=== PATIENT | female | born 1955 | race Caucasian/White ===

== ENCOUNTER 2018-03-04 13:30 | Emergency (ER) | payer OTHER, SELFPAY ==
[2018-03-04 13:31] VITALS: BP 125/70; PULSE 65; RESP 16; TEMP 36.1; O2SAT 97; BMI 30.1
--- NOTE | 2018-03-04 14:07 | ED.VISSUMM ---
- ER Visit Summary Date of Service: 03/04/18 Chief Complaint: Right back and leg pain. History of Present Illness: The patient is a 62 F recently drove from [place] back to [place] is about 15 hours. States since that time she has had right lower back pain at times it radiates into her hamstring. Denies any weakness. No numbness. She had a minor fall during the trip but said that she had no pain at that time is only after she got home after taking the long ride. No prior hip or back surgery. Physical Examination: Well-appearing older female. Vital signs are stable and afebrile. HEENT exam unremarkable neck nontender. Lungs clear to auscultation bilaterally. Heart regular rate and rhythm no murmur. Abdomen soft nontender Ted no giving or masses. Extremities moves all 4. Neurovascularly intact. No cauda equina no saddle anesthesia. Dorsi plantar flexion intact. She does have a positive straight leg raise on the right at about 15-30?. Left leg is unremarkable. Back exam spine is completely nontender there is no redness or warmth. There is no discoloration or signs of trauma she has exquisite tenderness over her right SI joint consistent with acute sciatica. Test Results: None Emergency Department Course and Treatment: Treated for acute sciatica. Will be given prednisone here and [place]. Treatment Plan: Prednisone 40 mg a day for total 7 days. [place] for pain 20 no refill. Follow-up with primary care physician. Disposition: Discharge Impression: Acute right sciatica This note was generated with [employer] dictation software. It may contain incorrect words, spelling, and punctuation that were not noted in review of the chart prior to signing ED Disposition - Plan for ED Patient: Chief Complaint: Lower Extremity Injury
--- NOTE | 2018-03-04 14:11 | ED.DCSUM_ITS ---
- ER Visit Summary Date of Service: 03/04/18 Chief Complaint: Right back and leg pain. History of Present Illness: The patient is a 62 F recently drove from [place] back to [place] is about 15 hours. States since that time she has had right lower back pain at times it radiates into her hamstring. Denies any weakness. No numbness. She had a minor fall during the trip but said that she had no pain at that time is only after she got home after taking the long ride. No prior hip or back surgery. Physical Examination: Well-appearing older female. Vital signs are stable and afebrile. HEENT exam unremarkable neck nontender. Lungs clear to auscultation bilaterally. Heart regular rate and rhythm no murmur. Abdomen soft nontender Ted no giving or masses. Extremities moves all 4. Neurovascularly intact. No cauda equina no saddle anesthesia. Dorsi plantar flexion intact. She does have a positive straight leg raise on the right at about 15-30?. Left leg is unremarkable. Back exam spine is completely nontender there is no redness or warmth. There is no discoloration or signs of trauma she has exquisite tenderness over her right SI joint consistent with acute sciatica. Test Results: None Emergency Department Course and Treatment: Treated for acute sciatica. Will be given prednisone here and [place]. Treatment Plan: Prednisone 40 mg a day for total 7 days. [place] for pain 20 no refill. Follow-up with primary care physician. Disposition: Discharge Impression: Acute right sciatica This note was generated with [employer] dictation software. It may contain incorrect words, spelling, and punctuation that were not noted in review of the chart prior to signing ED Disposition - Plan for ED Patient: Chief Complaint: Lower Extremity Injury
--- NOTE | 2018-03-04 14:14 | ED.DEP ---
ED Disposition - Plan for ED Patient: Disposition: Home or Assisted Living Chief Complaint: Lower Extremity Injury Instructions: ED Sciatica Prescriptions: Hydrocodone Bitart/Apap 5-325 [[place] 5MG-325MG] 1 - 2 tab PO Q4H PRN PRN #20 tab PRN Reason: Pain Prednisone [Deltasone] 40 mg PO DAILY 7 Days tab Additional Instructions: Follow-up with your doctor. Ice to the painful sciatic area. Prednisone 40 g a day for 1 week to decrease inflammation. [place] for pain.
[2018-03-04] MEDS: HYDROcodone Bitartrate/Apap 5/325 Tablet PO (14:23)
--- NOTE | 2018-03-04 14:23 | DCINST.ED_ITS ---
ED Disposition - Plan for ED Patient: Disposition: Home or Assisted Living Chief Complaint: Lower Extremity Injury Instructions: ED Sciatica Prescriptions: Hydrocodone Bitart/Apap 5-325 [[place] 5MG-325MG] 1 - 2 tab PO Q4H PRN PRN #20 tab PRN Reason: Pain Prednisone [Deltasone] 40 mg PO DAILY 7 Days tab Additional Instructions: Follow-up with your doctor. Ice to the painful sciatic area. Prednisone 40 g a day for 1 week to decrease inflammation. [place] for pain.
[2018-03-04] MEDS: predniSONE 20 MG Tablet 40 MG PO (14:24)
== END 2018-03-04 14:36 | disposition home or self-care (01) ==
PROVIDERS: Emergency Provider Emergency Medicine; Family Provider Family Medicine; PCP Family Medicine
DX: M54.41 Lumbago with sciatica, right side (principal); K21.9 Gastro-esophageal reflux disease without esophagitis; E11.9 Type 2 diabetes mellitus without complications; I10 Essential (primary) hypertension; Z86.73 Personal history of transient ischemic attack (TIA), and cerebral infarction without residual deficits; Z79.84 Long term (current) use of oral hypoglycemic drugs; Z79.899 Other long term (current) drug therapy
CPT/HCPCS: 99283

== ENCOUNTER → 2018-04-23 15:47 | Outpatient (CLI) | payer OTHER, SELFPAY ==
--- NOTE | 2018-04-23 15:53 | RAD_ITS ---
STUDY: X-RAY - CERVICAL SPINE REASON FOR EXAM: Female, 63 years old. Pain. TECHNIQUE: 5 view(s) of the cervical spine were obtained. COMPARISON: None FINDINGS: Normal anterior atlantoaxial articulation. Normal odontoid process. There is straightening of the normal cervical lordosis. There is multi-level endplate spondylosis. There is multi-level degenerative disc disease with multilevel disc space narrowing. There is multi-level osseous foraminal stenosis. The soft tissue structures are unremarkable. There is no demonstrated fracture of the cervical spine. RAD/Cerv Spine 4 or 5 Views IMPRESSION: Degenerative change. No fracture. Electronically Signed: Angel Leon MD at 23:35 EDT , Service support ,
== END ==
PROVIDERS: Family Provider Family Medicine; PCP Family Medicine; Visit Provider Nurse Practitioner Family
DX: M54.2 Cervicalgia (principal)
CPT/HCPCS: 72050

== ENCOUNTER 2018-04-28 18:00 | Observation (INO) | payer OTHER, SELFPAY ==
[2018-04-28] VITALS (10 sets, daily range): BP systolic 119–135; BP diastolic 59–84; PULSE 69–78; RESP 16–20; TEMP 36.3–37; O2SAT 95–96; BMI 30.8; BMI 30.9
--- NOTE | 2018-04-28 18:40 | CT_ITS ---
STUDY: CT BRAIN WITHOUT CONTRAST REASON FOR EXAM: Female, 63 years old. Dizziness RADIATION DOSAGE (If Supplied By Facility): CTDIvol = ( 44.99 ) mGy, DLP = ( 779.24 ) mGycm TECHNIQUE: Transaxial CT imaging of the brain was performed without administration of intravenous contrast material. Individualized dose optimization techniques were used for this CT. COMPARISON: June 30, 2014 FINDINGS: The soft tissues are unremarkable. The osseous structures are unremarkable. Normal size ventricles and extra-axial spaces for the patient's age. There are scattered areas of decreased attenuation within the white matter tracts of the supratentorial brain, likely microvascular changes. There are small punctate calcifications of the basal ganglia which are seen in the aging brain as a normal variant. There is a stable old lacunar infarct in the left thalamus. No abnormalities are seen in the brainstem. The cerebellum is unremarkable. There is a stable arachnoid cyst in the right middle cranial fossa. There is no intracranial hemorrhage. There are no findings of acute ischemia. The visualized sinuses are unremarkable. CT/Brain/Head without Contrast IMPRESSION: No acute intracranial abnormalities. There are stable chronic findings. Electronically Signed: Tanya Rivas MD at 19:18 EDT Tel Direct: [phone], Service support ,
--- NOTE | 2018-04-28 18:40 | EKG12_ITS ---
Test Reason : Blood Pressure : / mmHG Vent. Rate : 073 BPM Atrial Rate : 073 BPM P-R Int : 126 ms QRS Dur : 072 ms QT Int : 364 ms P-R-T Axes : -28 -18 011 degrees QTc Int : 401 ms Normal sinus rhythm Low voltage QRS Borderline ECG Confirmed by DURAN TIDWELL, KELSY ([id number]), technical writer and editor FRANCE NAJERA ([id number]) on 04/30/2018 8:59:41 AM Referred By: Radha Treviño Confirmed By:KELSY GARZON MD
--- NOTE | 2018-04-28 18:48 | ED.VISSUMM ---
- ER Visit Summary Date of Service: 04/28/18 Chief Complaint: Trouble with speech, walking and rhythmic activity right upper extremity History of Present Illness: The patient is a 63 F with history of type 2 diabetes, hypertension and CVA ?2 who was brought to the emergency department by her daughters because they noted she was having difficulty walking. Initially they thought it was because of her flip-flops. He also noted facial droop trouble with fluency and slurred speech. Both daughters describe rhythmic activity of the right upper extremity. There is no history of seizures. Patient does have history of arachnoid cyst. She does not give symptoms of low blood sugar. She denies headache. She complains of some visual change. Denied double vision. She denies ringing in her ears. I trouble speech or swallowing. She denied chest pain, palpitations, dyspnea on exertion. She denies dyspnea, cough or congestion. She denies any abdominal/GI, or musculoskeletal symptoms. She is on no anticoagulant and denies problems with bleeding disorder or bruising easily. Physical Examination: Patient's NIH is 0. Onset was 1745. Daughters stopped Mrs. Decker when I was asking questions because they stated she was not describing events as they occurred. She appears slightly anxious. Head is atraumatic normocephalic. Pupils are equal round reactive. Extraocular muscles are intact. TMs are pearly white with landmarks noted. Nares patent with no drainage. Posterior pharynx without erythema or exudate. Uvula is midline. There is no dysphonia or dysphasia. Trachea is midline. There is no stridor with auscultation of the neck. Heart is regular without murmur, gallop or rub. S1 and S2 are normal. Lungs are clear to auscultation with good movement of air bilaterally. Abdomen soft nontender. Patient is alert and oriented ?3. Motor is 5 over 5. Sensory is intact. DTRs are symmetric with no clonus or Babinski sign. Cranial 2 through 12 are intact. Cerebellar testing is normal. Test Results: CBC, BMP and coags are unremarkable. EKG revealed a sinus rhythm rate of 73 with low voltage. [place] and intervals are normal. CT of the head was interpreted by radiologist no acute findings. Emergency Department Course and Treatment: Stroke order set was initiated. PTT was assessed and she is diabetic. Concern patient had a TIA since her symptoms resolved. With the rhythmic activity described by both daughters patient may have had a seizure. Treatment Plan: The hospitalist has been paged for admission and further workup Disposition: PCU Impression: Dysarthria, difficulty walking and expressive aphasia Rhythmic movement right upper extremity evaluate for seizure History of CVA History of type 2 diabetes History of hypertension History of arachnoid cyst This note was generated with [employer] dictation software. It may contain incorrect words, spelling, and punctuation that were not noted in review of the chart prior to signing ED Disposition - Plan for ED Patient: Chief Complaint: Dizziness Referrals: Manda Howe MD [Primary Care Provider] -
[2018-04-28 18:53] LABS: Absolute Neutrophil Count 4.8 X10^3/uL (2.0-7.7); Basophil# 0.08 X10^3/uL; Basophil% 0.9 % (0-1); Eosinophil# 0.45 X10^3/uL; Eosinophils% 5.1 % (0-5); Hematocrit 39.3 % (37-47); Hemoglobin 12.8 g/dl (12.0-15.0); Lymphocyte % 30.8 % (19-41); Mean Corp Hgb Conc 32.6 g/gl (32-36); Mean Corpuscular Volume 88.9 fL (81-99); Mean Platelet Vol. 10.8 fl (6.2-12.0); Monocyte# 0.71 X10^3/uL; Monocyte% 8.1 % (0-10); Neutrophil # 4.82 X10^3/uL (2.7-7.7); Neutrophil % 54.9 % (47-70); Platelet Count 267 K/mm3 (150-450); RBC Distribution Width CV 13.7 % (11.6-14.6); RBC Distribution Width SD 43.8 fl (35.1-43.9); Red Blood Count 4.42 M/mm3 (4.2-5.4); White Blood Count 8.8 K/mm3 (4.4-11.0)
[2018-04-28 18:55] LABS: POSITIVE COUNT NO; POSITIVE DIFFERENTIAL NO; POSITIVE MORPHOLOGY NO
[2018-04-28 19:01] LABS: Bedside Glucose 108 mg/dL (70-110)
[2018-04-28 19:02] LABS: Prothrombin Time (Protime)PT. 12.7 SECONDS (11.7-14.9)
[2018-04-28 19:03] LABS: Partial Thromboplast Time 28.7 Seconds (24.1-36.2)
[2018-04-28 19:11] LABS: Anion Gap 6 (5-15); BUN 12 mg/dL (7-18); BUN/Creat Ratio 12.2 RATIO (10-20); Calcium,Total 9.2 mg/dL (8.5-10.1); Chloride 103 mmol/L (98-107); Creatinine, Serum 0.98 mg/dL (0.55-1.02); EST Glomerular Filtration Rate 61 mL/min (>60); Est Glom Filt Rate - Afr Amer 73 mL/min (>60); Estimated Creatinine Clearance 48.61 ml/min; Glucose 111 mg/dL (74-106); Potassium 4.1 mmol/L (3.5-5.1); Sodium Level 139 mmol/L (136-145)
--- NOTE | 2018-04-28 20:59 | PCM.HP.STD ---
Problem List (1) TIA (transient ischemic attack) Status: Acute (2) Obesity (BMI 30.0-34.9) Status: Chronic (3) Arachnoid cyst Status: Chronic (4) Diabetes mellitus, type II Status: Chronic (5) CVA (cerebral infarction) Status: Chronic (6) Barretts esophagus Status: Chronic Qualifiers: (7) Hypertension Status: Chronic Qualifiers: (8) Hiatal hernia Status: Chronic History of Present Illness Date of Admission: 04/28/18 Chief Complaint: Multiple TIA-like symptoms today The patient is a 63 year old F with history of hypertension, type 2 diabetes mellitus CVA ?2, once at the age of 27 when she had dysarthria and was admitted and diagnosed with stroke and second time she does not remember but no residual deficit came to ED with multiple symptoms at 5:30 PM today while she was walking. Her daughters for walking along with her and noticed expressive aphasia, slurred speech, right upper extremity involuntary movements, drifting to her right side with disequilibrium and loss of balance, along with dizziness and vertigo. She also complained of left visual field blurry/foggy vision. As per the daughter, they noticed whole facial droop but I do not notice any facial droop. She has history of arachnoid cyst but no seizure. Further she said she has sometimes arrhythmia but does not know what it is an EKG shows normal sinus rhythm and she is not on blood thinners. PCP Dr. Howe. There is no mention about A. fib or arrhythmia in the problem list. EKG shows normal sinus rhythm at 73 bpm. Initial workup in the ER is unremarkable. CT head no acute finding. She is further admitted for workup of TIA/stroke [] Past Medical History Past Medical History (Chronic Problems): Chronic Problems Obesity (BMI 30.0-34.9) (Chronic) Arachnoid cyst (Chronic) Diabetes mellitus, type II (Chronic) CVA (cerebral infarction) (Chronic) Barretts esophagus (Chronic) Hypertension (Chronic) Hiatal hernia (Chronic) Allergies lisinopril Allergy (Verified 03/04/18 13:33) Other Home Medications: Ambulatory Orders Medication Instructions Recorded Atorvastatin Calcium [Lipitor] 40 mg PO QHS 06/30/14 Duloxetine Hcl [Cymbalta] 60 mg PO DAILY 06/30/14 Metformin(XR) [Glucophage Xr] 500 mg PO BID 06/30/14 Multivit-Min/FA/Lycopene/Lut 1 each PO DAILY 06/30/14 [Centrum Silver Tablet] Valsartan/Hydrochlorothiazide 1 tablet PO DAILY 06/30/14 [Diovan Hct 80-12.5 MG Tablet] traMADol [Ultram] 50 mg PO Q6H PRN PRN 06/30/14 Pantoprazole Sodium [Protonix] 40 mg PO DAILY 04/28/18 Surgical History: - - Silicon bilateral breast augmentation, hiatal hernia repair, appendectomy. Psychiatric History: No pertinent psych hx TECHNOLOGY SERVICES MANAGER History: No pertinent TECHNOLOGY SERVICES MANAGER history Smoking Status: Never smoker - *Family History Maternal History Items: Heart Disease Paternal History Items: Cancer, COPD, Diabetes, Hypertension Review of Systems Constitutional: Denies: Chills, Fever, Weight Change HEENT: Denies: Head Aches, Sinus Congestion, Sinus Drainage Cardiovascular: Denies: Chest Pain, Palpitations Respiratory: Denies: Cough, Shortness of breath at rest, Sputum production Gastrointestinal: Denies: Abdominal Pain, Nausea, Vomiting Genitourinary: Denies: Dysuria Musculoskeletal: Denies: Joint Pain, Joint Tenderness Skin: Denies: Rash, Wounds Neurological: Reports: Balance problems, Blurred vision, Change in Speech, Slurred speech, Confusion, Incoordination, Tremor. Denies: Double vision, Focal weakness, Numbness, Tingling, Seizures Psychiatric: Reports: Anxiety, Depression. Denies: Homicidal Ideations, Suicidal Ideations Hematologic/ Lymphatic: Denies: Easy Bruising, Easy Bleeding VTE Information - Inpt Only VTE Present on Admission: No VTE Mechan Device Prophylaxis: SCD's VTE Pharm Prophylaxis ordered?: Yes Patient Problems: Active and Suspected Problems TIA (transient ischemic attack) (Acute) - Physical Exam General: Alert, Oriented x3, Cooperative HEENT: Atraumatic, PERRLA, EOMI, Normocephalic Neck: Supple, No JVD, Negative Carotid Bruits Lungs: Clear to auscultation, Normal air movement Cardiovascular: Regular rate, Regular Rhythm, Normal S1, Normal S2, No murmurs Abdomen: Bowel Sounds Present, Soft, Non Tender, Non-Distended Extremities: No edema, Capillary Refill Less than 3 Seconds Skin: No rashes, No breakdown Musculoskeletal: No Tenderness to Palpation of Joints or Extremities Neurological: Cranial nerves II-XII grossly intact, Deep Tendon Reflexes 2+/4 and Symmetrical, Neuro grossly intact, Motor Exam 5/5 strength throughout, Sensory exam intact to light touch and pain, - - No cerebellar signs. Vpwuym-[id number] test and ubqw-io-[id number] test are negative. Sensory exam is equal and symmetrical on both side. NIH stroke scale 0 Psych/Mental Status: Normal Affect, Appropriate Vital Signs Temp Pulse Resp BP Pulse Ox 98.6 F 71 18 135/77 H 95 04/28/18 18:01 04/28/18 20:52 04/28/18 20:52 04/28/18 20:52 04/28/18 20:52 Oxygen Delivery Method Room Air Assessment/Plan All Active Problems TIA (transient ischemic attack) (Acute) The patient is a 63 year old F with history of hypertension, type 2 diabetes mellitus CVA ?2, once at the age of 27 when she had dysarthria and was admitted and diagnosed with stroke and second time she does not remember but no residual deficit came to ED with multiple symptoms at 5:30 PM today while she was walking. Her daughters for walking along with her and noticed expressive aphasia, slurred speech, right upper extremity involuntary movements, drifting to her right side with disequilibrium and loss of balance, along with dizziness and vertigo. She also complained of left visual field blurry/foggy vision. As per the daughter, they noticed whole facial droop but I do not notice any facial droop. She has history of arachnoid cyst but no seizure. Further she said she has sometimes arrhythmia but does not know what it is an EKG shows normal sinus rhythm and she is not on blood thinners. PCP Dr. Howe. There is no mention about A. fib or arrhythmia in the problem list. EKG shows normal sinus rhythm at 73 bpm. Initial workup in the ER is unremarkable. CT head no acute finding. She is further admitted for workup of TIA/stroke 1. TIA-like symptoms possible TIA with history of a stroke in the past: Patient is being admitted in PCU. Cardiac monitoring. Serial troponin enzymes. Stroke workup with MRI brain, CTA head and neck, and 2D echo. PT/OT and speech/swallow evaluation. BP and glucose control as per stroke guidelines. Neuro consult. Fasting profile, A1c and ESR. On aspirin and statin. Blood pressure is within stroke guidelines does not require any medication at present. 2. Diabetes mellitus type 2: Blood sugars controlled on BMP glucose is 111. Accu-Chek before meals and at bedtime and cover with NovoLog sliding scale. 3. Hypertension, GERD and CT head finding which was later confirmed by MRIbrain of 4.3 x 2.8 x 3.3 cm. arachnoid cyst in the right middle cranial fossa in June 2014 admission when she was admitted for headache. Home medication reconciliation done. DVT prophylaxis: On bilateral SCDs. Heparin 5000 units subcutaneous twice daily starting from 24 hours after symptom. This note was generated with [employer] dictation software. Every effort was made to ensure accuracy, however computerized wing commander mistakes may persist. Code Visit OBSV E&M: 18498 Initial observation care L3
--- NOTE | 2018-04-28 21:01 | ECHOD_ITS ---
Reason For Study: TIA.CVA Procedure This was a 2D Doppler, Color Flow transthoracic echocardiogram. Exam performed portable in patient room. Left Ventricle Normal size and thickness. The estimated ejection fraction is 65 %. Stage 1 diastolic dysfunction. No regional wall motion abnormalities noted. Right Ventricle Normal size and thickness. Normal systolic function. Atria Normal left atrium. Normal right atrium. Normal atrial septum. Mitral Valve The mitral valve is structurally normal. No prolapse or stenosis seen. Tricuspid Valve Normal tricuspid valve. Mild (1+) tricuspid valve insufficiency. Right ventricular systolic pressure estimated to be 33 mmHg. Aortic Valve Normal aortic valve. Trisinus/trileaflet aortic valve. Pulmonic Valve Normal pulmonic valve. Great Vessels Normal aortic root. Normal arch. Normal inferior vena cava. Inferior vena cava collapse with sniff. Pericardium/Pleural No pericardial effusion. MMode/2D Measurements & Calculations LVIDd: 5.3 cm IVSd: 0.88 cm LVOT diam: 2.0 cm LVIDs: 3.0 cm LVPWd: 0.96 cm LVOT area: 3.0 cm2 RVDd: 2.6 cm FS: 43.5 % Ao root diam: 3.5 cm LAV(MOD-bp): 65.1 ml LA A4 area: 20.4 cm2 LA dimension: 4.3 cm LAV(MOD-bp) Indexed: 35.7 ml/m2 LAV(MOD-sp2): 59.6 ml LAV(MOD-sp4): 65.5 ml RA A4 area: 15.7 cm2 Doppler Measurements & Calculations MV E max edmund: 75.3 cm/sec Lat Peak E' Edmund: 10.4 cm/sec Med Peak E' Edmund: 6.9 cm/sec MV A max edmund: 91.2 cm/sec E/E' lat: 7.2 E/E' med: 10.9 MV E/A: 0.83 Ao V2 max: 205.3 cm/sec LV V1 max: 149.3 cm/sec SV(LVOT): 88.4 ml Ao max P.9 mmHg LV V1 max P.9 mmHg Ao V2 mean: 127.7 cm/sec LV V1 mean P.0 mmHg Ao mean P.5 mmHg LV V1 mean: 92.8 cm/sec Ao V2 VTI: 38.6 cm LV V1 VTI: 29.4 cm HOWIE(I,D): 2.3 cm2 HOWIE(V,D): 2.2 cm2 PA V2 max: 112.8 cm/sec TR max edmund: 264.5 cm/sec TR max P.0 mmHg Interpretation Summary The estimated ejection fraction is 65 %. Stage 1 diastolic dysfunction. Mild (1+) tricuspid valve insufficiency. Right ventricular systolic pressure estimated to be 33 mmHg. Compared to echo report dated 07/05/2008, no appreciable changes noted. Pt reportedly had POSITIVE bubble study at that time. Ordering Physician: David Madsen Referring Physician: Radha Treviño Performed By: Ninfa Eldridge RDCS, RVT
--- NOTE | 2018-04-28 21:01 | CT_ITS ---
STUDY: CTA OF THE BRAIN REASON FOR EXAM: Female, 63 years old. Dizziness RADIATION DOSAGE (If Supplied By Facility): CTDIvol = ( 17.73 ) mGy, DLP = ( 664.92 ) mGycm TECHNIQUE: CT angiography was performed with a multi-detector CT scanner. Data acquisition was obtained from the skull base through the vertex following intravenous administration of 100 ml of Isovue 370. MIP images were reconstructed from the axial data set. Post-processing of the angiographic images was performed, with multiplanar reformation and 3D reconstruction. Individualized dose optimization techniques were used for this CT. COMPARISON: Head CT without contrast from the same day FINDINGS: The petrous carotid arteries are normal in appearance. There is calcified plaque formation of the right cavernous carotid artery, without significant luminal narrowing. There is calcified plaque formation of the left cavernous carotid artery, without significant luminal narrowing. There is hypoplastic development of the right A1 segment of the anterior cerebral arteries with a small but intact artery. Normal left A1 segment of the anterior cerebral artery. Normal intact anterior communicating artery (ACOM). Normal bilateral A2 segments of the anterior cerebral arteries. Normal right M1 and M2 segments of the middle cerebral arteries, with a normal M1 bifurcation. Normal left M1 and M2 segments of the middle cerebral arteries, with a normal M1 bifurcation. There is non-visualization of the right posterior communicating artery (PCOM). There is non-visualization of the left posterior communicating artery (PCOM). Normal bilateral distal vertebral arteries. Normal basilar artery with a normal basilar bifurcation. The visualized bilateral superior cerebellar (SCA) arteries are within normal limits. Normal bilateral P1, P2 and visualized P3 segments of the posterior cerebral arteries. There is no demonstrated aneurysm of the [place]. There is no demonstrated enhancement of the visualized brain. CT/CTA Head W/WO Contrast IMPRESSION: Normal intracranial arteries without a demonstrated aneurysm or hemodynamically significant stenosis. Electronically Signed: Tanya Rivas MD at 22:30 EDT Tel Direct: [phone], Service support ,
--- NOTE | 2018-04-28 21:01 | CT_ITS ---
STUDY: CTA NECK WITH CONTRAST REASON FOR EXAM: Female, 63 years old. Dizziness RADIATION DOSAGE (If Supplied By Facility): CTDIvol = ( 17.73 ) mGy, DLP = ( 664.92 ) mGycm TECHNIQUE: CT angiography with multi-detector data acquisition was performed from the aortic arch to the skull base following intravenous administration of 100 ml of Isovue 370 contrast. MIP images were reconstructed from the axial data set. Post-processing of the angiographic images was performed, with multiplanar reformation and 3D reconstruction. Individualized dose optimization techniques were used for this CT. COMPARISON: None. FINDINGS: AORTIC ARCH: There is a bovine origin of the great vessels arising from the aortic arch with a common origin of the brachiocephalic and left common carotid artery. Normal origin of the left subclavian artery. There are minimal calcifications in the origins of the great vessels without narrowing. RIGHT CAROTID ARTERIES: There are no significant abnormalities in the right common carotid artery. There is a small cleft in the right carotid bulb. Normal origin of the right internal carotid artery without a hemodynamically significant stenosis. There is tortuosity of the cervical portion of the right internal carotid artery. Normal origin of the right external carotid artery (ECA). LEFT CAROTID ARTERIES: There is tortuosity of the left common carotid artery. There is mild atherosclerotic plaque in the left carotid bulb without significant narrowing. Normal origin of the left internal carotid artery without a hemodynamically significant stenosis. There is tortuosity of the cervical portion of the left internal carotid artery. Normal origin of the left external carotid artery (ECA). VERTEBRAL ARTERIES: The vertebral arteries show no significant abnormalities. There is minimal atelectasis in the upper lungs. There are no abnormal masses or enlarged lymph nodes in the upper mediastinum or throughout the neck. The thyroid is normal in appearance. The submandibular glands and parotid glands are symmetric and normal in appearance. The sinuses and mastoid air cells are well aerated. There are moderate degenerative changes in the cervical spine. CT/CTA Neck W/WO Contrast IMPRESSION: There is minimal calcific plaque in the left carotid bulb without narrowing. There is a small cleft in the right carotid bulb without narrowing. The vertebral arteries are normal without significant disease or dissection. Electronically Signed: Tanya Rivas MD at 22:27 EDT Tel Direct: [phone], Service support ,
--- NOTE | 2018-04-28 21:12 | HP.PCM_ITS ---
Problem List (1) TIA (transient ischemic attack) Status: Acute (2) Obesity (BMI 30.0-34.9) Status: Chronic (3) Arachnoid cyst Status: Chronic (4) Diabetes mellitus, type II Status: Chronic (5) CVA (cerebral infarction) Status: Chronic (6) Barretts esophagus Status: Chronic Qualifiers: (7) Hypertension Status: Chronic Qualifiers: (8) Hiatal hernia Status: Chronic History of Present Illness Date of Admission: 04/28/18 Chief Complaint: Multiple TIA-like symptoms today The patient is a 63 year old F with history of hypertension, type 2 diabetes mellitus CVA ?2, once at the age of 27 when she had dysarthria and was admitted and diagnosed with stroke and second time she does not remember but no residual deficit came to ED with multiple symptoms at 5:30 PM today while she was walking. Her daughters for walking along with her and noticed expressive aphasia, slurred speech, right upper extremity involuntary movements, drifting to her right side with disequilibrium and loss of balance, along with dizziness and vertigo. She also complained of left visual field blurry/foggy vision. As per the daughter, they noticed whole facial droop but I do not notice any facial droop. She has history of arachnoid cyst but no seizure. Further she said she has sometimes arrhythmia but does not know what it is an EKG shows normal sinus rhythm and she is not on blood thinners. PCP Dr. Howe. There is no mention about A. fib or arrhythmia in the problem list. EKG shows normal sinus rhythm at 73 bpm. Initial workup in the ER is unremarkable. CT head no acute finding. She is further admitted for workup of TIA/stroke [] Past Medical History Past Medical History (Chronic Problems): Chronic Problems Obesity (BMI 30.0-34.9) (Chronic) Arachnoid cyst (Chronic) Diabetes mellitus, type II (Chronic) CVA (cerebral infarction) (Chronic) Barretts esophagus (Chronic) Hypertension (Chronic) Hiatal hernia (Chronic) Allergies lisinopril Allergy (Verified 03/04/18 13:33) Other Home Medications: Ambulatory Orders Medication Instructions Recorded Atorvastatin Calcium [Lipitor] 40 mg PO QHS 06/30/14 Duloxetine Hcl [Cymbalta] 60 mg PO DAILY 06/30/14 Metformin(XR) [Glucophage Xr] 500 mg PO BID 06/30/14 Multivit-Min/FA/Lycopene/Lut 1 each PO DAILY 06/30/14 [Centrum Silver Tablet] Valsartan/Hydrochlorothiazide 1 tablet PO DAILY 06/30/14 [Diovan Hct 80-12.5 MG Tablet] traMADol [Ultram] 50 mg PO Q6H PRN PRN 06/30/14 Pantoprazole Sodium [Protonix] 40 mg PO DAILY 04/28/18 Surgical History: - - Silicon bilateral breast augmentation, hiatal hernia repair, appendectomy. 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 Smoking Status: Never smoker - *Family History Maternal History Items: Heart Disease Paternal History Items: Cancer, COPD, Diabetes, Hypertension Review of Systems Constitutional: Denies: Chills, Fever, Weight Change HEENT: Denies: Head Aches, Sinus Congestion, Sinus Drainage Cardiovascular: Denies: Chest Pain, Palpitations Respiratory: Denies: Cough, Shortness of breath at rest, Sputum production Gastrointestinal: Denies: Abdominal Pain, Nausea, Vomiting Genitourinary: Denies: Dysuria Musculoskeletal: Denies: Joint Pain, Joint Tenderness Skin: Denies: Rash, Wounds Neurological: Reports: Balance problems, Blurred vision, Change in Speech, Slurred speech, Confusion, Incoordination, Tremor. Denies: Double vision, Focal weakness, Numbness, Tingling, Seizures Psychiatric: Reports: Anxiety, Depression. Denies: Homicidal Ideations, Suicidal Ideations Hematologic/ Lymphatic: Denies: Easy Bruising, Easy Bleeding VTE Information - Inpt Only VTE Present on Admission: No VTE Mechan Device Prophylaxis: SCD's VTE Pharm Prophylaxis ordered?: Yes Patient Problems: Active and Suspected Problems TIA (transient ischemic attack) (Acute) - Physical Exam General: Alert, Oriented x3, Cooperative HEENT: Atraumatic, PERRLA, EOMI, Normocephalic Neck: Supple, No JVD, Negative Carotid Bruits Lungs: Clear to auscultation, Normal air movement Cardiovascular: Regular rate, Regular Rhythm, Normal S1, Normal S2, No murmurs Abdomen: Bowel Sounds Present, Soft, Non Tender, Non-Distended Extremities: No edema, Capillary Refill Less than 3 Seconds Skin: No rashes, No breakdown Musculoskeletal: No Tenderness to Palpation of Joints or Extremities Neurological: Cranial nerves II-XII grossly intact, Deep Tendon Reflexes 2+/4 and Symmetrical, Neuro grossly intact, Motor Exam 5/5 strength throughout, Sensory exam intact to light touch and pain, - - No cerebellar signs. Finger-to -nose test and [id number] test are negative. Sensory exam is equal and symmetrical on both side. NIH stroke scale 0 Psych/Mental Status: Normal Affect, Appropriate Vital Signs Temp Pulse Resp BP Pulse Ox 98.6 F 71 18 135/77 H 95 04/28/18 18:01 04/28/18 20:52 04/28/18 20:52 04/28/18 20:52 04/28/18 20:52 Oxygen Delivery Method Room Air Assessment/Plan All Active Problems TIA (transient ischemic attack) (Acute) The patient is a 63 year old F with history of hypertension, type 2 diabetes mellitus CVA ?2, once at the age of 27 when she had dysarthria and was admitted and diagnosed with stroke and second time she does not remember but no residual deficit came to ED with multiple symptoms at 5:30 PM today while she was walking. Her daughters for walking along with her and noticed expressive aphasia, slurred speech, right upper extremity involuntary movements, drifting to her right side with disequilibrium and loss of balance, along with dizziness and vertigo. She also complained of left visual field blurry/foggy vision. As per the daughter, they noticed whole facial droop but I do not notice any facial droop. She has history of arachnoid cyst but no seizure. Further she said she has sometimes arrhythmia but does not know what it is an EKG shows normal sinus rhythm and she is not on blood thinners. PCP Dr. Howe. There is no mention about A. fib or arrhythmia in the problem list. EKG shows normal sinus rhythm at 73 bpm. Initial workup in the ER is unremarkable. CT head no acute finding. She is further admitted for workup of TIA/stroke 1. TIA-like symptoms possible TIA with history of a stroke in the past: Patient is being admitted in PCU. Cardiac monitoring. Serial troponin enzymes. Stroke workup with MRI brain, CTA head and neck, and 2D echo. PT/OT and speech/swallow evaluation. BP and glucose control as per stroke guidelines. Neuro consult. Fasting profile, A1c and ESR. On aspirin and statin. Blood pressure is within stroke guidelines does not require any medication at present. 2. Diabetes mellitus type 2: Blood sugars controlled on BMP glucose is 111. Accu-Chek before meals and at bedtime and cover with NovoLog sliding scale. 3. Hypertension, GERD and CT head finding which was later confirmed by MRI brain of 4.3 x 2.8 x 3.3 cm. arachnoid cyst in the right middle cranial fossa in June 2014 admission when she was admitted for headache. Home medication reconciliation done. DVT prophylaxis: On bilateral SCDs. Heparin 5000 units subcutaneous twice daily starting from 24 hours after symptom. This note was generated with [employer] dictation software. Every effort was made to ensure accuracy, however computerized antisqueak filler mistakes may persist. Code Visit OBSV E&M: 57438 Initial observation care L3
[2018-04-28 21:43] LABS: Thyroid Stim Hormone (TSH) 1.64 uIU/mL (0.358-3.74)
[2018-04-28] MEDS: Famotidine 20 MG Tablet PO (23:41)
[2018-04-28] MEDS: Atorvastatin Calcium 40 MG Tablet PO (23:42)
[2018-04-28 23:51] LABS: Bedside Glucose 130 mg/dL (70-110)
[2018-04-29] VITALS (9 sets, daily range): BP systolic 94–142; BP diastolic 45–79; PULSE 57–74; RESP 16–20; TEMP 36.4–37.1; O2SAT 93–97; BMI 30.9
[2018-04-29] MEDS: traZODone 100 MG Tablet PO (01:23)
[2018-04-29 06:45] LABS: Cholesterol 216 mg/dL (200); High Density Lipoprotein 56 mg/dL; Triglycerides 96 mg/dL; Very Low Density Lipoprotein 19 mg/dL (5-40)
[2018-04-29 06:55] LABS: Erythrocyte Sedimentation Rate 5 mm/hr (0-30)
[2018-04-29 07:06] LABS: Bedside Glucose 115 mg/dL (70-110)
--- NOTE | 2018-04-29 07:27 | MRI_ITS ---
STUDY: MRI BRAIN WITHOUT CONTRAST REASON FOR EXAM: Female, 63 years old. TIA, blurred vision, dizziness, confusion and expressive aphasia since yesterday. TECHNIQUE: Standardized multiplanar fat and water weighted pulse sequences were obtained. COMPARISON: CT brain and CTA 04/28/2018. MRI brain 06/30/2014. FINDINGS: No restricted diffusion to suspect acute or subacute ischemic infarct. Large benign arachnoid cyst overlying the posterior aspect of the left inferior temporal lobe gyrus is unchanged. This is causing medial displacement of the left inferior temporal lobe gyrus and elevation of the left middle temporal lobe gyrus. Left anterior periventricular white matter and small bilateral subcortical white matter T2 FLAIR hyperintensity foci in the frontal lobes were present previously. Normal bilateral basal ganglia. Old lacunar cystic infarct in the left thalamus is unchanged. Normal right thalamus. There is no extra-axial fluid accumulation. Normal flow voids within the major intracranial circulation suggesting patency by spin echo criteria. Normal sella turcica, pituitary gland, infundibular stalk, optic chiasm and hypothalamus. Normal tectal plate and pineal gland. Normal midbrain, austni and medulla. Normal cerebellum. Normal basal cisterns. Normal bilateral temporal bones. Normal bilateral internal auditory canals. No demonstrated orbital abnormality, within the constraints of a routine brain study. Normal visualized paranasal sinuses. Normal calvarium and skull base. Normal visualized soft tissue structures. Normal visualized upper cervical spine. MRI/Brain without Contrast IMPRESSION: 1. No MRI evidence of acute or subacute ischemic infarct. 2. Nonspecific T2 FLAIR subcortical white matter hyperintensity foci in both frontal lobes. They are unchanged since 06/30/2014. 3. Large benign arachnoid cyst overlying the posterior aspect of the right inferior temporal lobe gyrus causing medial displacement of the right inferior temporal lobe gyrus and elevation of the right middle temporal lobe gyrus. 4. No interval changes or new findings since 06/30/2014. Electronically Signed: Mina Cuadra MD at 11:03 EDT , Service support ,
[2018-04-29 07:57] LABS: Hemoglobin A1c 6.7 % (4.2-6.3)
[2018-04-29] MEDS: ALPRAZolam 0.5 MG Tablet 1 MG PO (08:35)
[2018-04-29] MEDS: DULoxetine Hcl 60 MG Capsule PO (09:48)
[2018-04-29] MEDS: Famotidine 20 MG Tablet PO (09:48)
[2018-04-29] MEDS: Pantoprazole Sodium 40 MG Tablet PO (09:48)
[2018-04-29] MEDS: Aspirin 81 MG TAB.CHEW PO (09:48)
[2018-04-29 11:36] LABS: Bedside Glucose 153 mg/dL (70-110)
[2018-04-29] MEDS: Heparin Injection (Vial) 5,000 UNIT/ML VIAL 5000 UNIT SC (11:48)
[2018-04-29] MEDS: Insulin Lispro 100 UNIT/ML INSULN.PEN SQ (11:49)
--- NOTE | 2018-04-29 13:48 | CON.PCM_ITS ---
Problem List (1) TIA (transient ischemic attack) Status: Acute Qualifiers: Transient cerebral ischemia type: unspecified Qualified Code(s): G45.9 - Transient cerebral ischemic attack, unspecified Reason for Consult Date of Consultation: 04/29/18 Reason for Consultation: TIA History of Present Illness: The patient is a 63 year old CF with PMH HTN, DM,? H/O CVA, right temporal arachnoid cyst admitted with stroke like symptoms. Per daughter and patient, she was well yesterday (04/28/18) around 5:45 pm had sudden onset dizziness, was leaning towards the right, had involuntary movement of the right arm, had difficulty in walking and had slurred speech. The episode lasted for about 5 minutes, before resolving. NIHSS was 0 on admission. At present patient is back to baseline. Denies any RANDALL, focal motor weakness, sensory loss, denies any LOC or witnessed seizures. complaints of left visual blurriness. Per documentation there was facial droop when the episode occurred. MRI brain done on admission reported nothing acute, CTA head/neck reported not to show any hemodynamically significant stenosis or occlusion. Lives with family, denies frequent falls, does not use cane or walker to ambulate, does not need any assistance for ADLs. [] Past Medical History Past Medical History (Chronic Problems): Chronic Problems Obesity (BMI 30.0-34.9) (Chronic) Arachnoid cyst (Chronic) Diabetes mellitus, type II (Chronic) CVA (cerebral infarction) (Chronic) Barretts esophagus (Chronic) Hypertension (Chronic) Hiatal hernia (Chronic) Allergies lisinopril Allergy (Verified 03/04/18 13:33) Other Home Medications: Ambulatory Orders Medication Instructions Recorded Atorvastatin Calcium [Lipitor] 40 mg PO QHS 06/30/14 Duloxetine Hcl [Cymbalta] 60 mg PO DAILY 06/30/14 Metformin(XR) [Glucophage Xr] 500 mg PO BID 06/30/14 Multivit-Min/FA/Lycopene/Lut 1 each PO DAILY 06/30/14 [Centrum Silver Tablet] Valsartan/Hydrochlorothiazide 1 tablet PO DAILY 06/30/14 [Diovan Hct 80-12.5 MG Tablet] traMADol [Ultram] 50 mg PO Q6H PRN PRN 06/30/14 Pantoprazole Sodium [Protonix] 40 mg PO DAILY 04/28/18 traZODone [Desyrel] 100 mg PO QHS 04/28/18 Surgical History: - - Silicon bilateral breast augmentation, hiatal hernia repair, appendectomy. 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 Lives: Spouse/ Significant Other Smoking Status: Never smoker Alcohol: None Drugs: None - *Family History Maternal History Items: Heart Disease Paternal History Items: Cancer, COPD, Diabetes, Hypertension Review of Systems Constitutional: Reports: - - complete ROS negative except as documented in HPI Patient Problems: Active and Suspected Problems TIA (transient ischemic attack) (Acute) - Physical Exam General: Alert HEENT: Atraumatic Neck: No JVD Lungs: Clear to auscultation Cardiovascular: Normal S1, Normal S2 Abdomen: Bowel Sounds Present Extremities: No cyanosis Skin: No rashes Musculoskeletal: No Tenderness to Palpation of Joints or Extremities Neurological: - - consious, alert, AoA x3, CN 2-12 grossly intact, power 5/5 both UE/LE, plantars B/L flexor, no sensory loss, no cerebellar signs, gait deferred, Reflexes + B/L B/S/T/K/A, NIHSS 0 at present, mRS-0 Vital Signs Temp Pulse Resp BP Pulse Ox 98.5 F 59 L 16 94/45 L 97 04/29/18 12:45 04/29/18 12:45 04/29/18 12:45 04/29/18 12:45 04/29/18 12:45 Oxygen Delivery Method Room Air Weight: 79.152 kg Body Mass Index (BMI) 30.9 Intake and Output for Last 24 Hours 04/27/18 04/28/18 04/29/18 23:59 23:59 23:59 Intake Total 440 / 440 Balance 440 / 440 Laboratory Tests Past 24 Hrs 04/28/18 04/29/18 04/29/18 22:53 01:04 05:35 ESR Hemoglobin A1c Troponin I < 0.015 < 0.015 Triglycerides 96 Cholesterol 216 H LDL Cholesterol 141 H VLDL Cholesterol 19 HDL Cholesterol 56 04/29/18 04/29/18 05:35 05:35 ESR 5 Hemoglobin A1c 6.7 H Troponin I Triglycerides Cholesterol LDL Cholesterol VLDL Cholesterol HDL Cholesterol POC Glucose 04/29/18 04/29/18 04/28/18 11:30 06:57 23:24 POC Glucose 153 H 115 H 130 H Assessment/Plan All Active Problems TIA (transient ischemic attack) (Acute) The patient is a 63 year old CF with PMH HTN, DM,? H/O CVA, right temporal arachnoid cyst admitted with stroke like symptoms. Per daughter and patient, she was well yesterday (04/28/18) around 5:45 pm had sudden onset dizziness, was leaning towards the right, had involuntary movement of the right arm, had difficulty in walking and had slurred speech. The episode lasted for about 5 minutes, before resolving. NIHSS was 0 on admission. At present patient is back to baseline. Denies any RANDALL, focal motor weakness, sensory loss, denies any LOC or witnessed seizures. complaints of left visual blurriness. Per documentation there was facial droop when the episode occurred. MRI brain done on admission reported nothing acute, CTA head/neck reported not to show any hemodynamically significant stenosis or occlusion. Lives with family, denies frequent falls, does not use cane or walker to ambulate, does not need any assistance for ADLs. Impression Probable TIA Plan -On ASA 81 mg PO once daily -Plavix 75 mg PO once daily. Dual AP for 3 weeks then switch to single AP with Plavix. Bleeding S/E discussed in detail with the patient. -On Lipitor 40 mg PO q hs -MRI brain- nothing acute, large right temporal arachnoid cyst -CTA head/neck reviewed -Labs reviewed -LDL-141, Npc5i-9.7% -Await TTE -Recommend Neurosurgery consult as outpatient for the large arachnoid cyst -Stroke risk factors discussed and stroke education provided -Recommend 30 day event recorder. -PT/OT/ST -Fall precautions -GI/DVT prophylaxis -Follow up with Neurology in 2-3 weeks as outpatient. -Please call with questions if any -Thank you for allowing us to participate in patient's care and management I spent 60 minutes taking history, doing physical examination, reviewing medical records, coordinating care and counseling patient and available family. Code Visit Inpatient E&M: 99252 Init Hosp L3
[2018-04-29] MEDS: Clopidogrel Bisulfate 75 MG Tablet PO (16:47)
[2018-04-29 16:50] LABS: Bedside Glucose 148 mg/dL (70-110)
--- NOTE | 2018-04-29 17:56 | PCM.DC ---
- Discharge Diagnoses Current Active Problems: Current Active and Chronic Problems TIA (transient ischemic attack) (Acute) You will use the following diet at home:: Regular Your food should be the consistency of: Regular Your liquids should be the consistency of: Regular/Thin Discharge Activity: Return to Normal Activity Weight Bearing Status: Full weight bearing Allergies/Adverse Reactions: Allergies lisinopril Allergy (Verified 03/04/18 13:33) Other Medications to take at Discharge Atorvastatin Calcium [Lipitor] 40 mg PO QHS 06/30/14 Duloxetine Hcl [Cymbalta] 60 mg PO DAILY 06/30/14 Metformin(XR) [Glucophage Xr] 500 mg PO BID 06/30/14 Multivit-Min/FA/Lycopene/Lut [Centrum Silver Tablet] 1 each PO DAILY 06/30/14 Valsartan/Hydrochlorothiazide [Diovan Hct 80-12.5 MG Tablet] 1 tablet PO DAILY 06/30/14 traMADol [Ultram] 50 mg PO Q6H PRN PRN 06/30/14 Pantoprazole Sodium [Protonix] 40 mg PO DAILY 04/28/18 traZODone [Desyrel] 100 mg PO QHS 04/28/18 Aspirin [Aspirin, Baby] 81 mg PO DAILY@0800 tab.chew 04/29/18 Clopidogrel Bisulfate [Plavix] 75 mg PO DAILY #30 tab 04/29/18 The following prescriptions were given: Clopidogrel Bisulfate [Plavix] 75 mg PO DAILY #30 tab Primary Care Physician: Manda Howe MD [Primary Care Provider] - Please follow up with your Primary Care Physician in: 7-10 days, ask if you need to see a neurosurgeon- you will need your MRI's Please Follow Up With: Katie Rocha MD When: in 3 weeks
--- NOTE | 2018-05-02 17:04 | PCM.DC.SUM ---
Discharge Date and Diagnosis Date of Admission: 04/28/18 Date of Discharge: 04/29/18 - Primary Discharge Diagnosis #1 transient ischemic attack #2 chronic arachnoid cyst #3 type 2 diabetes #4 hypertension - Secondary Discharge Diagnosis Chronic Problems Obesity (BMI 30.0-34.9) (Chronic) Arachnoid cyst (Chronic) Diabetes mellitus, type II (Chronic) CVA (cerebral infarction) (Chronic) Barretts esophagus (Chronic) Hypertension (Chronic) Hiatal hernia (Chronic) Hospital Course and Treatment Operations: None Procedures: 2-D Echocardiogram, - - Brain MRI, neck CTA, head CTA, brain CT Summary of Care Provided: The patient is a 63 year old F seen in the emergency room at [facility] with complaints of speech difficulties, difficulties walking, and right upper extremity tremors. Workup in the emergency room revealed the patient's NIH score to be 0, neurological exam was unremarkable. CT of the brain showed no acute findings. Labs were unremarkable. Patient was placed in observation status on PCU, neuro checks were performed, she was seen by PT OT and speech therapy, and seen in consultation by neurology. Patient had an echocardiogram performed as well as a CT of the head and neck and MRI of the brain. No evidence of stroke was noted however there was noted to be a benign arachnoid cyst in the posterior aspect of the right inferior temporal lobe gyrus, this cyst was causing medial displacement of the right inferior temporal lobe gyrus and elevation of the right middle temporal lobe gyrus. This cyst had been noted to be present on previous MRIs and patient had sought medical attention for it at a neurosurgeons office several years past but was told that surgery was not recommended for this. On 04/29/18, patient was seen and examined and felt to be in stable condition for discharge home, it was recommended by neurology that she seek neurosurgery consultation again regarding the arachnoid cyst. Discharge Activity: Return to Normal Activity Weight Bearing Status: Full weight bearing Home Medications: Medications to take at Discharge Atorvastatin Calcium [Lipitor] 40 mg PO QHS 06/30/14 Duloxetine Hcl [Cymbalta] 60 mg PO DAILY 06/30/14 Metformin(XR) [Glucophage Xr] 500 mg PO BID 06/30/14 Multivit-Min/FA/Lycopene/Lut [Centrum Silver Tablet] 1 each PO DAILY 06/30/14 Valsartan/Hydrochlorothiazide [Diovan Hct 80-12.5 MG Tablet] 1 tablet PO DAILY 06/30/14 traMADol [Ultram] 50 mg PO Q6H PRN PRN 06/30/14 Pantoprazole Sodium [Protonix] 40 mg PO DAILY 04/28/18 traZODone [Desyrel] 100 mg PO QHS 04/28/18 Aspirin [Aspirin, Baby] 81 mg PO DAILY@0800 tab.chew 04/29/18 Clopidogrel Bisulfate [Plavix] 75 mg PO DAILY #30 tab 04/29/18 Following Prescrptions Were Given to Patient: Clopidogrel Bisulfate [Plavix] 75 mg PO DAILY #30 tab Primary Care Physician: Manda Howe MD [Primary Care Provider] - Please follow up with your Primary Care Physician in: 7-10 days, ask if you need to see a neurosurgeon- you will need your MRI's Please Follow Up With: Katie Rocha MD When: in 3 weeks Please Follow Up With: STEVE Disposition: Home Minutes spent on discharge:: 31 Patient Condition:: Stable Medical Necessity - Tobacco Use Smoking Status: Never smoker Meaningful Use Info Meaningful Use Diagnoses (Choose all that apply): None applicable Code Visit OBSV E&M: 61082 Observation care discharge
--- NOTE | 2018-05-02 17:09 | DS.PCM_ITS ---
Discharge Date and Diagnosis Date of Admission: 04/28/18 Date of Discharge: 04/29/18 - Primary Discharge Diagnosis #1 transient ischemic attack #2 chronic arachnoid cyst #3 type 2 diabetes #4 hypertension - Secondary Discharge Diagnosis Chronic Problems Obesity (BMI 30.0-34.9) (Chronic) Arachnoid cyst (Chronic) Diabetes mellitus, type II (Chronic) CVA (cerebral infarction) (Chronic) Barretts esophagus (Chronic) Hypertension (Chronic) Hiatal hernia (Chronic) Hospital Course and Treatment Operations: None Procedures: 2-D Echocardiogram, - - Brain MRI, neck CTA, head CTA, brain CT Summary of Care Provided: The patient is a 63 year old F seen in the emergency room at [facility] with complaints of speech difficulties, difficulties walking, and right upper extremity tremors. Workup in the emergency room revealed the patient's NIH score to be 0, neurological exam was unremarkable. CT of the brain showed no acute findings. Labs were unremarkable. Patient was placed in observation status on PCU, neuro checks were performed, she was seen by PT OT and speech therapy, and seen in consultation by neurology. Patient had an echocardiogram performed as well as a CT of the head and neck and MRI of the brain. No evidence of stroke was noted however there was noted to be a benign arachnoid cyst in the posterior aspect of the right inferior temporal lobe gyrus , this cyst was causing medial displacement of the right inferior temporal lobe gyrus and elevation of the right middle temporal lobe gyrus. This cyst had been noted to be present on previous MRIs and patient had sought medical attention for it at a neurosurgeons office several years past but was told that surgery was not recommended for this. On 04/29/18, patient was seen and examined and felt to be in stable condition for discharge home, it was recommended by neurology that she seek neurosurgery consultation again regarding the arachnoid cyst. Discharge Activity: Return to Normal Activity Weight Bearing Status: Full weight bearing Home Medications: Medications to take at Discharge Atorvastatin Calcium [Lipitor] 40 mg PO QHS 06/30/14 Duloxetine Hcl [Cymbalta] 60 mg PO DAILY 06/30/14 Metformin(XR) [Glucophage Xr] 500 mg PO BID 06/30/14 Multivit-Min/FA/Lycopene/Lut [Centrum Silver Tablet] 1 each PO DAILY 06/30/14 Valsartan/Hydrochlorothiazide [Diovan Hct 80-12.5 MG Tablet] 1 tablet PO DAILY 06/30/14 traMADol [Ultram] 50 mg PO Q6H PRN PRN 06/30/14 Pantoprazole Sodium [Protonix] 40 mg PO DAILY 04/28/18 traZODone [Desyrel] 100 mg PO QHS 04/28/18 Aspirin [Aspirin, Baby] 81 mg PO DAILY@0800 tab.chew 04/29/18 Clopidogrel Bisulfate [Plavix] 75 mg PO DAILY #30 tab 04/29/18 Following Prescrptions Were Given to Patient: Clopidogrel Bisulfate [Plavix] 75 mg PO DAILY #30 tab Primary Care Physician: Manda Howe MD [Primary Care Provider] - Please follow up with your Primary Care Physician in: 7-10 days, ask if you need to see a neurosurgeon- you will need your MRI's Please Follow Up With: Katie Rocha MD When: in 3 weeks Please Follow Up With: STEVE Disposition: Home Minutes spent on discharge:: 31 Patient Condition:: Stable Medical Necessity - Tobacco Use Smoking Status: Never smoker Meaningful Use Info Meaningful Use Diagnoses (Choose all that apply): None applicable Code Visit OBSV E&M: 40208 Observation care discharge
== END 2018-04-29 18:01 | disposition home or self-care (01) ==
LOC: ED 18:50 → PCU 20:29
PROVIDERS: Admitting Provider Internal Medicine; Emergency Provider Emergency Medicine; Family Provider Internal Medicine; PCP Internal Medicine; Visit Provider Internal Medicine
DX: G45.9 Transient cerebral ischemic attack, unspecified (principal); G93.0 Cerebral cysts; E11.9 Type 2 diabetes mellitus without complications; I10 Essential (primary) hypertension; E66.9 Obesity, unspecified; K22.70 Barrett's esophagus without dysplasia; K44.9 Diaphragmatic hernia without obstruction or gangrene; R47.81 Slurred speech; R26.2 Difficulty in walking, not elsewhere classified; R47.01 Aphasia; K21.9 Gastro-esophageal reflux disease without esophagitis; R29.810 Facial weakness; Z79.899 Other long term (current) drug therapy; Z79.84 Long term (current) use of oral hypoglycemic drugs; Z68.30 Body mass index [BMI] 30.0-30.9, adult; Z71.3 Dietary counseling and surveillance
CPT/HCPCS: 36415; 70450; 70496; 70498; 70551; 80048; 80061; 82962; 83036; 84443; 84484; 85025; 85610; 85652; 85730; 93005; 93306; 96372; 97162; 97165; 99218; 99283; Q9967; A4216; G0378

== ENCOUNTER → 2018-10-08 15:16 | Outpatient (CLI) | payer OTHER, SELFPAY ==
--- NOTE | 2018-10-08 15:34 | MRI_ITS ---
STUDY: MRI BRAIN WITH AND WITHOUT CONTRAST REASON FOR EXAM: Female, 63 years old. Known cyst, increasing dizziness and unsteady gait TECHNIQUE: Standardized multiplanar fat and water weighted pulse sequences were obtained. 7 ml of Gadavist contrast material was administered intravenously for the contrast portion of the examination. COMPARISON: 04/29/2018 FINDINGS: Normal size of the ventricles and extra-axial spaces for the patient's age. Stable mild microangiopathic white matter disease. Normal bilateral basal ganglia. Remote lacunar infarct in the left thalamus. Stable right temporal arachnoid cyst measuring 4.5 cm anteroposterior by 3.4 cm transverse by 3.7 cm craniocaudal. Normal flow voids within the major intracranial circulation suggesting patency by spin echo criteria. Normal venous enhancement. There is no enhancing intra-axial or extra-axial abnormality. Normal sella turcica, pituitary gland, infundibular stalk, optic chiasm and hypothalamus. Normal tectal plate and pineal gland. Normal midbrain, [place] and medulla. Normal cerebellum. Normal basal cisterns. Normal bilateral temporal bones. Normal bilateral internal auditory canals. No demonstrated orbital abnormality, within the constraints of a routine brain study. Normal visualized paranasal sinuses. Left mastoid sinus disease. Normal visualized soft tissue structures. Normal visualized upper cervical spine. MRI/Brain W/WO Contrast IMPRESSION: No evidence of acute infarct or hemorrhage. Stable white matter disease. Remote infarct in the left thalamus. Stable right temporal arachnoid cyst. Electronically Signed: Russel Ontiveros MD at 2:15 EST Tel , Service support ,
[2018-10-09 07:35] LABS: CREATININE FINGERSTICK 0.78 mg/dL (0.55-1.02); EGFR FINGERSTICK > 60 mL/min (>60)
--- OUTSIDE RECORDS SUMMARY | 2018-12-03 21:38 | XMS RPT_ITS ---
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 of: Regular Your liquids should be the consistency of: Regular/Thin Discharge Activity: Return to Normal Activity Weight Bearing Status: Full weight bearing Allergies/Adverse Reactions: Allergies lisinopril Allergy (Verified 03/04/18 13:33) Other Medications to take at Discharge Atorvastatin Calcium [Lipitor] 40 mg PO QHS 06/30/14 Duloxetine Hcl [Cymbalta] 60 mg PO DAILY 06/30/14 Metformin(XR) [Glucophage Xr] 500 mg PO BID 06/30/14 Multivit-Min/FA/Lycopene/Lut [Centrum Silver Tablet] 1 each PO DAILY 06/30/14 Valsartan/Hydrochlorothiazide [Diovan Hct 80-12.5 MG Tablet] 1 tablet PO DAILY 06/30/14 traMADol [Ultram] 50 mg PO Q6H PRN PRN 06/30/14 Pantoprazole Sodium [Protonix] 40 mg PO DAILY 04/28/18 traZODone [Desyrel] 100 mg PO QHS 04/28/18 Aspirin [Aspirin, Baby] 81 mg PO DAILY@0800 tab.chew 04/29/18 Clopidogrel Bisulfate [Plavix] 75 mg PO DAILY #30 tab 04/29/18 The following prescriptions were given: Clopidogrel Bisulfate [Plavix] 75 mg PO DAILY #30 tab Primary Care Physician: Winston Wilson MD [Primary Care Provider] - Please follow up with your Primary Care Physician in: 7-10 days, ask if you need to see a neurosurgeon- you will need your MRI's Please Follow Up With: Katie Rocha MD When: in 3 weeks 04/29/18 1802 <Electronically signed by Andrade Cunningham DO> Date Andrade Cunningham DO CC: Emma Rocha MD; Winston Wilson MD BEDSIDE GLUCOSE Collected: 04/29/2018 Status: F Source: [place] 4:43 PM [facility] TYPE CODE TESTS RESULT OUT OF REFERENCE UNITS RANGE LAB L501.080 70-110 mg/dL High BEDSIDE GLU 148 Result Comment: MANAGEMENT OF PATIENT CARE PER NURSING PROTOCOL Performed By: #### L501.080 #### [facility] Point of Care [address] [place] [address] ECHOCARDIOGRAM COMPLETE Observed: 04/29/2018 Status: F Source: [place] 3:25 PM [facility] Cardiovascular Services [address] [place] [address] Echo Complete 04/29/18 1109 MR#: [id number] Acct: [id number] Name: JUDITH JONES Rep #: [id number] : 1955 63 From: Fernando Tellez MD Attending Dr: Andrade Cunningham DO Status: ADM GRICELDA Ordering Dr: David Madsen MD Date: 04/28/18 Location: U Sex: F C Admitted: 04/28/18 Reason For Study: TIA.CVA Procedure This was a 2D Doppler, Color Flow transthoracic echocardiogram. Exam performed portable in patient room. Left Ventricle Normal size and thickness. The estimated ejection fraction is 65 %. Stage 1 diastolic dysfunction. No regional wall motion abnormalities noted. Right Ventricle Normal size and thickness. Normal systolic function. Atria Normal left atrium. Normal right atrium. Normal atrial septum. Mitral Valve The mitral valve is structurally normal. No prolapse or stenosis seen. Tricuspid Valve Normal tricuspid valve. Mild (1+) tricuspid valve insufficiency. Right ventricular systolic pressure estimated to be 33 mmHg. Aortic Valve Normal aortic valve. Trisinus/trileaflet aortic valve. Pulmonic Valve Normal pulmonic valve. Great Vessels Normal aortic root. Normal arch. Normal inferior vena cava. Inferior vena cava collapse with sniff. Pericardium/Pleural No pericardial effusion. MMode/2D Measurements AND Calculations LVIDd: 5.3 cm IVSd: 0.88 cm LVOT diam: 2.0 cm LVIDs: 3.0 cm LVPWd: 0.96 cm LVOT area: 3.0 cm2 RVDd: 2.6 cm FS: 43.5 % Ao root diam: 3.5 cm LAV(MOD-bp): 65.1 ml LA A4 area: 20.4 cm2 LA dimension: 4.3 cm LAV(MOD-bp) Indexed: 35.7 ml/m2 LAV(MOD-sp2): 59.6 ml LAV(MOD-sp4): 65.5 ml RA A4 area: 15.7 cm2 Doppler Measurements AND Calculations MV E max catalino: 75.3 cm/sec Lat Peak E' Catalino: 10.4 cm/sec Med Peak E' Catalino: 6.9 cm/sec MV A max actalino: 91.2 cm/sec E/E' lat: 7.2 E/E' med: 10.9 MV E/A: 0.83 Ao V2 max: 205.3 cm/sec LV V1 max: 149.3 cm/sec SV(LVOT): 88.4 ml Ao max P.9 mmHg LV V1 max P.9 mmHg Ao V2 mean: 127.7 cm/sec LV V1 mean P.0 mmHg Ao mean P.5 mmHg LV V1 mean: 92.8 cm/sec Ao V2 VTI: 38.6 cm LV V1 VTI: 29.4 cm HOWIE(I,D): 2.3 cm2 HOWIE(V,D): 2.2 cm2 PA V2 max: 112.8 cm/sec TR max catalino: 264.5 cm/sec TR max P.0 mmHg Interpretation Summary The estimated ejection fraction is 65 %. Stage 1 diastolic dysfunction. Mild (1+) tricuspid valve insufficiency. Right ventricular systolic pressure estimated to be 33 mmHg. Compared to echo report dated 07/05/2008, no appreciable changes noted. Pt reportedly had POSITIVE bubble study at that time. Ordering Physician: David Madsen Referring Physician: Radha Treviño Performed By: Ninfa Eldridge, MOISES, RVT 04/29/18 1525 Date Fernando Tellez MD CC: Winston Wilson MD; Andrade Cunningham DO; David Madsen MD Date Dictated: 04/29/18 1109 Date Transcribed: 04/29/18 1525 Cash Shortage Investigator: Signed BEDSIDE GLUCOSE Collected: 04/29/2018 Status: F Source: [place] 11:30 AM [facility] CODE TESTS RESULT OUT OF REFERENCE UNITS RANGE LAB L501.080 70-110 mg/dL High BEDSIDE GLU 153 Result Comment: MANAGEMENT OF PATIENT CARE PER NURSING PROTOCOL Performed By: #### L501.080 #### [facility] Point of Care [address] [place], [place] [address] BEDSIDE GLUCOSE Collected: 04/29/2018 Status: F Source: [place] 6:57 AM [facility] TYPE CODE TESTS RESULT OUT OF REFERENCE UNITS RANGE LAB L501.080 70-110 mg/dL High BEDSIDE GLU 115 Result Comment: MANAGEMENT OF PATIENT CARE PER NURSING PROTOCOL Performed By: #### L501.080 #### [facility] Point of Care [address] [place] [address] LIPID PROFILE Collected: 04/29/2018 Status: F Source: [place] 5:35 AM [facility] TYPE CODE TESTS RESULT OUT OF RANGE REFERENCE UNITS LAB L501.4900 200 mg/dL High CHOL 216 Result Comment: <200 mg/dL Desirable 200-240 mg/dL Borderline >240 mg/dL High Risk LAB L501.5000 mg/dL Normal TRIG 96 Result Comment: The drugs N-Acetylcysteine and Metamizole may falsely depress this assay. Serum Triglycerides Reference Interval Normal <150 mg/dL Borderline high 150 - 199 mg/dL High 200 - 499 mg/dL Very High > or = 500 mg/dL LAB L501.6400 mg/dL Normal HDL 56 Result Comment: The drugs N-Acetylcysteine and Metamizole may falsely depress this assay. Reference Range HDL <40 mg/dL Low HDL Cholesterol HDL >or= 60 mg/dL High HDL Cholesterol LAB L501.6500 0-130 mg/dL High LDL 141 LAB L501.6600 5-40 mg/dL Normal VLDL 19 Performed By: #### L500.4100 #### [facility] [address] [place], [address] ERYTHROCYTE SED RATE Collected: 04/29/2018 Status: F Source: [place] 5:35 AM [facility] TYPE CODE TESTS RESULT OUT OF RANGE REFERENCE UNITS LAB L102.0000 0-30 mm/hr Normal SED RATE 5 Performed By: #### L101.9900 #### [facility] [address] [place], [address] HEMOGLOBIN A1C Collected: 04/29/2018 Status: F Source: [place] 5:35 AM [facility] TYPE CODE TESTS RESULT OUT OF RANGE REFERENCE UNITS LAB L501.9985 4.2-6.3 % High HGB A1C 6.7 Performed By: #### L501.9985 #### [facility] [address] [place], [address] TROPONIN-I Collected: 04/29/2018 Status: F Source: [place] 1:04 AM [facility] Order Comment: 'TROP' Serial specimen #1, #2 or #3: 3 TYPE CODE TESTS RESULT OUT OF RANGE REFERENCE UNITS LAB L501.4010 <0.045 ng/mL Normal < 0.015 TROPONIN-I Result Comment: TROPONIN-I EXPECTED VALUES <0.045 Negative 0.045 - 0.590 Consistent with Cardiac Damage > OR = 0.600 Critical Value Not every elevated troponin is indicative of OK. These values should be used with clinical judgement in examining the patient's clinical picture for diagnosis. To establish a diagnosis of OK versus myocardial injury, there must be a demonstrated rise and/or fall in the troponin values, in addition to ischemic symptoms, EKG changes, new regional wall motion abnormality, and/or angiographical evidence. PLEASE NOTE: REFERENCE RANGES EDITED 18 Performed By: #### L501.4010 #### [facility] [address] [place], [address] BEDSIDE GLUCOSE Collected: 04/28/2018 Status: F Source: [place] 11:24 PM [facility] TYPE CODE TESTS RESULT OUT OF REFERENCE UNITS RANGE LAB L501.080 70-110 mg/dL High BEDSIDE GLU 130 Result Comment: MANAGEMENT OF PATIENT CARE PER NURSING PROTOCOL Performed By: #### L501.080 #### [facility] Point of Care [address] [place] [address] TROPONIN-I Collected: 04/28/2018 Status: F Source: [place] 10:53 PM [facility] Order Comment: 'TROP' Serial specimen #1, #2 or #3: 2 TYPE CODE TESTS RESULT OUT OF RANGE REFERENCE UNITS LAB L501.4010 <0.045 ng/mL Normal < 0.015 TROPONIN-I Result Comment: TROPONIN-I EXPECTED VALUES <0.045 Negative 0.045 - 0.590 Consistent with Cardiac Damage > OR = 0.600 Critical Value Not every elevated troponin is indicative of OK. These values should be used with clinical judgement in examining the patient's clinical picture for diagnosis. To establish a diagnosis of OK versus myocardial injury, there must be a demonstrated rise and/or fall in the troponin values, in addition to ischemic symptoms, EKG changes, new regional wall motion abnormality, and/or angiographical evidence. PLEASE NOTE: REFERENCE RANGES EDITED 18 Performed By: #### L501.4010 #### [facility] [address] [place], [address] HISTORY AND PHYSICAL Observed: 04/28/2018 Status: F Source: [place] 9:13 PM [facility] Medical Records Department [address] [place] [address] History and Physical 04/28/182058 MR#: [id number] Acct: [id number] Name: JUDITH JONES Rep #: [id number] : 1955 63 From: David Madsen MD PCP: Winston Wilson MD Status: ADM GRICELDA Y Location: [place] [address] Problem List (1) TIA (transient ischemic attack) Status: Acute (2) Obesity (BMI 30.0-34.9) Status: Chronic (3) Arachnoid cyst Status: Chronic (4) Diabetes mellitus, type II Status: Chronic (5) CVA (cerebral infarction) Status: Chronic (6) Barretts esophagus Status: Chronic Qualifiers: (7) Hypertension Status: Chronic Qualifiers: (8) Hiatal hernia Status: Chronic History of Present Illness Date of Admission: 04/28/18 Chief Complaint: Multiple TIA-like symptoms today The patient is a 63 year old F with history of hypertension, type 2 diabetes mellitus CVA 2, once at the age of 27 when she had dysarthria and was admitted and diagnosed with stroke and second time she does not remember but no residual deficit came to ED with multiple symptoms at 5:30 PM today while she was walking. Her daughters for walking along with her and noticed expressive aphasia, slurred speech, right upper extremity involuntary movements, drifting to her right side with disequilibrium and loss of balance, along with dizziness and vertigo. She also complained of left visual field blurry/foggy vision. As per the daughter, they noticed whole facial droop but I do not notice any facial droop. She has history of arachnoid cyst but no seizure. Further she said she has sometimes arrhythmia but does not know what it is an EKG shows normal sinus rhythm and she is not on blood thinners. PCP Dr. Wilson. There is no mention about A. fib or arrhythmia in the problem list. EKG shows normal sinus rhythm at 73 bpm. Initial workup in the ER is unremarkable. CT head no acute finding. She is further admitted for workup of TIA/stroke [] Past Medical History Past Medical History (Chronic Problems): Chronic Problems Obesity (BMI 30.0-34.9) (Chronic) Arachnoid cyst (Chronic) Diabetes mellitus, type II (Chronic) CVA (cerebral infarction) (Chronic) Barretts esophagus (Chronic) Hypertension (Chronic) Hiatal hernia (Chronic) Allergies lisinopril Allergy (Verified 03/04/18 13:33) Other Home Medications: Ambulatory Orders Medication Instructions Recorded Atorvastatin Calcium [Lipitor] 40 mg PO QHS 06/30/14 Surgical History: - - Silicon bilateral breast augmentation, hiatal hernia repair, appendectomy. 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 Smoking Status: Never smoker - *Family History Maternal History Items: Heart Disease Paternal History Items: Cancer, COPD, Diabetes, Hypertension Review of Systems Constitutional: Denies: Chills, Fever, Weight Change HEENT: Denies: Head Aches, Sinus Congestion, Sinus Drainage Cardiovascular: Denies: Chest Pain, Palpitations Respiratory: Denies: Cough, Shortness of breath at rest, Sputum production Gastrointestinal: Denies: Abdominal Pain, Nausea, Vomiting Genitourinary: Denies: Dysuria Musculoskeletal: Denies: Joint Pain, Joint Tenderness Skin: Denies: Rash, Wounds Neurological: Reports: Balance problems, Blurred vision, Change in Speech, Slurred speech, Confusion, Incoordination, Tremor. Denies: Double vision, Focal weakness, Numbness, Tingling, Seizures Psychiatric: Reports: Anxiety, Depression. Denies: Homicidal Ideations, Suicidal Ideations Hematologic/ Lymphatic: Denies: Easy Bruising, Easy Bleeding VTE Information - Inpt Only VTE Present on Admission: No VTE Mechan Device Prophylaxis: SCD's VTE Pharm Prophylaxis ordered?: Yes Patient Problems: Active and Suspected Problems TIA (transient ischemic attack) (Acute) - Physical Exam General: Alert, Oriented x3, Cooperative HEENT: Atraumatic, PERRLA, EOMI, Normocephalic Neck: Supple, No JVD, Negative Carotid Bruits Lungs: Clear to auscultation, Normal air movement Cardiovascular: Regular rate, Regular Rhythm, Normal S1, Normal S2, No murmurs Abdomen: Bowel Sounds Present, Soft, Non Tender, Non-Distended Extremities: No edema, Capillary Refill Less than 3 Seconds Skin: No rashes, No breakdown Musculoskeletal: No Tenderness to Palpation of Joints or Extremities Neurological: Cranial nerves II-XII grossly intact, Deep Tendon Reflexes 2+/4 and Symmetrical, Neuro grossly intact, Motor Exam 5/5 strength throughout, Sensory exam intact to light touch and pain, - - No cerebellar signs. [id number]-[id number]-[id number] test and uqmm-oi-xygu test are negative. Sensory exam is equal and symmetrical on both side. NIH stroke scale 0 Psych/Mental Status: Normal Affect, Appropriate Vital Signs Temp Pulse Resp BP Pulse Ox 98.6 F 71 18 135/77 H 95 04/28/18 18:01 04/28/18 20:52 04/28/18 20:52 04/28/18 20:52 04/28/18 20:52 Oxygen Delivery Method Room Air Assessment/Plan All Active Problems TIA (transient ischemic attack) (Acute) The patient is a 63 year old F with history of hypertension, type 2 diabetes mellitus CVA 2, once at the age of 27 when she had dysarthria and was admitted and diagnosed with stroke and second time she does not remember but no residual deficit came to ED with multiple symptoms at 5:30 PM today while she was walking. Her daughters for walking along with her and noticed expressive aphasia, slurred speech, right upper extremity involuntary movements, drifting to her right side with disequilibrium and loss of balance, along with dizziness and vertigo. She also complained of left visual field blurry/foggy vision. As per the daughter, they noticed whole facial droop but I do not notice any facial droop. She has history of arachnoid cyst but no seizure. Further she said she has sometimes arrhythmia but does not know what it is an EKG shows normal sinus rhythm and she is not on blood thinners. PCP Dr. Wilson. There is no mention about A. fib or arrhythmia in the problem list. EKG shows normal sinus rhythm at 73 bpm. Initial workup in the ER is unremarkable. CT head no acute finding. She is further admitted for workup of TIA/stroke 1. TIA-like symptoms possible TIA with history of a stroke in the past: Patient is being admitted in PCU. Cardiac monitoring. Serial troponin enzymes. Stroke workup with MRI brain, CTA head and neck, and 2D echo. PT/OT and speech/swallow evaluation. BP and glucose control as per stroke guidelines. Neuro consult. Fasting profile, A1c and ESR. On aspirin and statin. Blood pressure is within stroke guidelines does not require any medication at present. 2. Diabetes mellitus type 2: Blood sugars controlled on BMP glucose is 111. Accu-Chek before meals and at bedtime and cover with NovoLog sliding scale. 3. Hypertension, GERD and CT head finding which was later confirmed by MRIbrain of 4.3 x 2.8 x 3.3 cm. arachnoid cyst in the right middle cranial fossa in June 2014 admission when she was admitted for headache. Home medication reconciliation done. DVT prophylaxis: On bilateral SCDs. Heparin 5000 units subcutaneous twice daily starting from 24 hours after symptom. This note was generated with [employer] dictation software. Every effort was made to ensure accuracy, however computerized tow car driver mistakes may persist. Code Visit OBSV E AND M: 58719 Initial observation care L3 04/28/182112 <Electronically signed by David Madsen MD> Date David Madsen MD [facility] Signature: Date (if applicable) CC: Winston Wilson MD; David Madsen MD Signed CTA NECK W/WO Observed: 04/28/2018 Status: F Source: [place] 9:07 PM [facility] Imaging Services [address] [place] [address] CTA Neck W/WO Contrast MR#: [id number] Acct: [id number] Name: JUDITH JONES Rep #: [id number] : 1955 F 63 From: Tanya Rivas MD PCP: Winston Wilson MD Status: ADM GRICELDA Study: CTA Neck W/WO Contrast Date of Exam: 04/28/18 Exam# [id number] Ordering Dr: David Madsen MD STUDY: CTA NECK WITH CONTRAST REASON FOR EXAM: Female, 63 years old. Dizziness RADIATION DOSAGE (If Supplied By Facility): CTDIvol = ( 17.73 ) mGy, DLP = ( 664.92 ) mGycm TECHNIQUE: CT angiography with multi-detector data acquisition was performed from the aortic arch to the skull base following intravenous administration of 100 ml of Isovue 370 contrast. MIP images were reconstructed from the axial data set. Post-processing of the angiographic images was performed, with multiplanar reformation and 3D reconstruction. Individualized dose optimization techniques were used for this CT. COMPARISON: None. FINDINGS: AORTIC ARCH: There is a bovine origin of the great vessels arising from the aortic arch with a common origin of the brachiocephalic and left common carotid artery. Normal origin of the left subclavian artery. There are minimal calcifications in the origins of the great vessels without narrowing. RIGHT CAROTID ARTERIES: There are no significant abnormalities in the right common carotid artery. There is a small cleft in the right carotid bulb. Normal origin of the right internal carotid artery without a hemodynamically significant stenosis. There is tortuosity of the cervical portion of the right internal carotid artery. Normal origin of the right external carotid artery (ECA). LEFT CAROTID ARTERIES: There is tortuosity of the left common carotid artery. There is mild atherosclerotic plaque in the left carotid bulb without significant narrowing. Normal origin of the left internal carotid artery without a hemodynamically significant stenosis. There is tortuosity of the cervical portion of the left internal carotid artery. Normal origin of the left external carotid artery (ECA). VERTEBRAL ARTERIES: The vertebral arteries show no significant abnormalities. There is minimal atelectasis in the upper lungs. There are no abnormal masses or enlarged lymph nodes in the upper mediastinum or throughout the neck. The thyroid is normal in appearance. The submandibular glands and parotid glands are symmetric and normal in appearance. The sinuses and mastoid air cells are well aerated. There are moderate degenerative changes in the cervical spine. CT/CTA Neck W/WO Contrast IMPRESSION: There is minimal calcific plaque in the left carotid bulb without narrowing. There is a small cleft in the right carotid bulb without narrowing. The vertebral arteries are normal without significant disease or dissection. Electronically Signed: Tanya Rivas MD at 22:27 EDT Tel Direct: [phone], Service support , CC: Winston Wilson MD; David Madsen MD Cash Shortage Investigator: Signed CTA HEAD W/WO Observed: 04/28/2018 Status: F Source: [place] 9:07 PM [facility] Imaging Services [address] [place] [address] CTA Head W/WO Contrast MR#: [id number] Acct: [id number] Name: JUDITH JONES Rep #: [id number] : 1955 F 63 From: Tanya Rivas MD PCP: Winston Wilson MD Status: ADM GRICELDA Study: CTA Head W/WO Contrast Date of Exam: 04/28/18 Exam# [id number] Ordering Dr: David Madsen MD STUDY: CTA OF THE BRAIN REASON FOR EXAM: Female, 63 years old. Dizziness RADIATION DOSAGE (If Supplied By Facility): CTDIvol = ( 17.73 ) mGy, DLP = ( 664.92 ) mGycm TECHNIQUE: CT angiography was performed with a multi-detector CT scanner. Data acquisition was obtained from the skull base through the vertex following intravenous administration of 100 ml of Isovue 370. MIP images were reconstructed from the axial data set. Post-processing of the angiographic images was performed, with multiplanar reformation and 3D reconstruction. Individualized dose optimization techniques were used for this CT. COMPARISON: Head CT without contrast from the same day FINDINGS: The petrous carotid arteries are normal in appearance. There is calcified plaque formation of the right cavernous carotid artery, without significant luminal narrowing. There is calcified plaque formation of the left cavernous carotid artery, without significant luminal narrowing. There is hypoplastic development of the right A1 segment of the anterior cerebral arteries with a small but intact artery. Normal left A1 segment of the anterior cerebral artery. Normal intact anterior communicating artery (ACOM). Normal bilateral A2 segments of the anterior cerebral arteries. Normal right M1 and M2 segments of the middle cerebral arteries, with a normal M1 bifurcation. Normal left M1 and M2 segments of the middle cerebral arteries, with a normal M1 bifurcation. There is non-visualization of the right posterior communicating artery (PCOM). There is non-visualization of the left posterior communicating artery (PCOM). Normal bilateral distal vertebral arteries. Normal basilar artery with a normal basilar bifurcation. The visualized bilateral superior cerebellar (SCA) arteries are within normal limits. Normal bilateral P1, P2 and visualized P3 segments of the posterior cerebral arteries. There is no demonstrated aneurysm of the [place]. There is no demonstrated enhancement of the visualized brain. CT/CTA Head W/WO Contrast IMPRESSION: Normal intracranial arteries without a demonstrated aneurysm or hemodynamically significant stenosis. Electronically Signed: Tanya Rivas MD at 22:30 EDT Tel Direct: [phone], Service support , CC: Winston Wilson MD; David Madsen MD Cash Shortage Investigator: Signed BRAIN WITHOUT Observed: 04/28/2018 Status: F Source: [place] CONTRAST 9:07 PM [facility] Imaging Services [address] [place] [address] Brain without Contrast MR#: [id number] Acct: [id number] Name: JUDITH JONES Rep #: [id number] : 1955 F 63 From: Mina Cuadra MD PCP: Winston Wilson MD Status: ADM GRICELDA Study: Brain without Contrast Date of Exam: 04/29/18 Exam# [id number] Ordering Dr: Dvaid Madsen MD STUDY: MRI BRAIN WITHOUT CONTRAST REASON FOR EXAM: Female, 63 years old. TIA, blurred vision, dizziness, confusion and expressive aphasia since yesterday. TECHNIQUE: Standardized multiplanar fat and water weighted pulse sequences were obtained. COMPARISON: CT brain and CTA 04/28/2018. MRI brain 06/30/2014. FINDINGS: No restricted diffusion to suspect acute or subacute ischemic infarct. Large benign arachnoid cyst overlying the posterior aspect of the left inferior temporal lobe gyrus is unchanged. This is causing medial displacement of the left inferior temporal lobe gyrus and elevation of the left middle temporal lobe gyrus. Left anterior periventricular white matter and small bilateral subcortical white matter T2 FLAIR hyperintensity foci in the frontal lobes were present previously. Normal bilateral basal ganglia. Old lacunar cystic infarct in the left thalamus is unchanged. Normal right thalamus. There is no extra-axial fluid accumulation. Normal flow voids within the major intracranial circulation suggesting patency by spin echo criteria. Normal sella turcica, pituitary gland, infundibular stalk, optic chiasm and hypothalamus. Normal tectal plate and pineal gland. Normal midbrain, austin and medulla. Normal cerebellum. Normal basal cisterns. Normal bilateral temporal bones. Normal bilateral internal auditory canals. No demonstrated orbital abnormality, within the constraints of a routine brain study. Normal visualized paranasal sinuses. Normal calvarium and skull base. Normal visualized soft tissue structures. Normal visualized upper cervical spine. MRI/Brain without Contrast IMPRESSION: 1. No MRI evidence of acute or subacute ischemic infarct. 2. Nonspecific T2 FLAIR subcortical white matter hyperintensity foci in both frontal lobes. They are unchanged since 06/30/2014. 3. Large benign arachnoid cyst overlying the posterior aspect of the right inferior temporal lobe gyrus causing medial displacement of the right inferior temporal lobe gyrus and elevation of the right middle temporal lobe gyrus. 4. No interval changes or new findings since 06/30/2014. Electronically Signed: Mina Cuadra MD at 11:03 EDT , Service support , CC: Winston Wilson MD; David Madsen MD Cash Shortage Investigator: Signed EMERGENCY DEPARTMENT Observed: 04/28/2018 Status: F Source: [place] SUMMARY 8:15 PM [facility] Medical Records Department [address] [place] [address] Emergency Department Summary 04/28/18 1848 MR#: [id number] Acct: [id number] Name: JUDITH JONES Rep #: [id number] : 1955 63 From: Sudhir Horner MD PCP: Winston Wilson MD Status: REG ER - ER Visit Summary Date of Service: 04/28/18 Chief Complaint: Trouble with speech, walking and rhythmic activity right upper extremity History of Present Illness: The patient is a 63 F with history of type 2 diabetes, hypertension and CVA 2 who was brought to the emergency department by her daughters because they noted she was having difficulty walking. Initially they thought it was because of her flip-flops. He also noted facial droop trouble with fluency and slurred speech. Both daughters describe rhythmic activity of the right upper extremity. There is no history of seizures. Patient does have history of arachnoid cyst. She does not give symptoms of low blood sugar. She denies headache. She complains of some visual change. Denied double vision. She denies ringing in her ears. I trouble speech or swallowing. She denied chest pain, palpitations, dyspnea on exertion. She denies dyspnea, cough or congestion. She denies any abdominal/GI, or musculoskeletal symptoms. She is on no anticoagulant and denies problems with bleeding disorder or bruising easily. Physical Examination: Patient's NIH is 0. Onset was 1745. Daughters stopped Mrs. Jones when I was asking questions because they stated she was not describing events as they occurred. She appears slightly anxious. Head is atraumatic normocephalic. Pupils are equal round reactive. Extraocular muscles are intact. TMs are pearly white with landmarks noted. Nares patent with no drainage. Posterior pharynx without erythema or exudate. Uvula is midline. There is no dysphonia or dysphasia. Trachea is midline. There is no stridor with auscultation of the neck. Heart is regular without murmur, gallop or rub. S1 and S2 are normal. Lungs are clear to auscultation with good movement of air bilaterally. Abdomen soft nontender. Patient is alert and oriented 3. Motor is 5 over 5. Sensory is intact. DTRs are symmetric with no clonus or Babinski sign. Cranial 2 through 12 are intact. Cerebellar testing is normal. Test Results: CBC, BMP and coags are unremarkable. EKG revealed a sinus rhythm rate of 73 with low voltage. [place] and intervals are normal. CT of the head was interpreted by radiologist no acute findings. Emergency Department Course and Treatment: Stroke order set was initiated. PTT was assessed and she is diabetic. Concern patient had a TIA since her symptoms resolved. With the rhythmic activity described by both daughters patient may have had a seizure. Treatment Plan: The hospitalist has been paged for admission and further workup Disposition: PCU Impression: Dysarthria, difficulty walking and expressive aphasia Rhythmic movement right upper extremity evaluate for seizure History of CVA History of type 2 diabetes History of hypertension History of arachnoid cyst This note was generated with [employer] software. It may contain incorrect words, spelling, and punctuation that were not noted in review of the chart prior to signing ED Disposition - Plan for ED Patient: Chief Complaint: Dizziness Referrals: Winston Wilson MD [Primary Care Provider] - What to do if you have Problems For any increased pain, shortness of breath, bleeding, nausea or vomiting, chest pain, or any unexpected problems, contact your Primary Care Provider. Call [facility] ([phone]) or report to the closest Emergency Room. Call 911 if necessary. 04/28/182014 <Electronically signed by Sudhir Horner MD> Date Sudhir Horner MD Cosigner Signature (If Indicated): Date CC: Winston Wilson MD BEDSIDE GLUCOSE Collected: 04/28/2018 Status: F Source: [place] 6:53 PM [facility] CODE TESTS RESULT OUT OF RANGE REFERENCE UNITS LAB L501.080 70-110 mg/dL Normal BEDSIDE GLU 108 Result Comment: MANAGEMENT OF PATIENT CARE PER NURSING PROTOCOL Performed By: #### L501.080 #### [facility] Point of Care [facility] [address] [place], [place] [id number] CBC W/DIFF, AUTOMATED Collected: 04/28/2018 Status: F Source: [place] 6:42 PM [facility] CODE TESTS RESULT OUT OF RANGE REFERENCE UNITS LAB L100.1000 4.4-11.0 K/mm3 Normal WBC 8.8 LAB L100.1200 4.2-5.4 M/mm3 Normal RBC 4.42 LAB L100.1300 12.0-15.0 g/dl Normal HGB 12.8 LAB L100.1400 37-47 % Normal HCT 39.3 LAB L100.1500 81-99 fL Normal MCV 88.9 LAB L100.1600 27.0-32.0 pg Normal MCH 29.0 LAB L100.1700 32-36 g/gl Normal MCHC 32.6 LAB L100.1810 11.6-14.6 % Normal RDW CV 13.7 LAB L100.1820 35.1-43.9 fl Normal RDW SD 43.8 LAB L100.1900 150-450 K/mm3 Normal PLT 267 LAB L100.2000 6.2-12.0 fl Normal MPV 10.8 LAB L100.2100 47-70 % Normal NEUT% 54.9 LAB L100.2200 19-41 % Normal LY% 30.8 LAB L100.2300 0-10 % Normal MONO% 8.1 LAB L100.2400 0-5 % High EO% 5.1 LAB L100.2500 0-1 % Normal BASO% 0.9 LAB L100.2550 0.0-0.9 % Normal IM GRAN % 0.200 Result Comment: IG% - Immature Granulocytes (promyelocytes, myelocytes and metamyelocytes) > 1% indicates that a LEFT SHIFT is Present. LAB L100.2620 2.0-7.7 X10 3/uL Normal Absolute Neut 4.8 LAB L100.2720 0.83-4.51 X10 3/ul Normal Absolute Lymph 2.70 Performed By: #### L100.0100 #### [facility] [address] [place], [address] BASIC METABOLIC Collected: 04/28/2018 Status: F Source: [place] PROFILE (BMP) 6:42 PM [facility] CODE TESTS RESULT OUT OF RANGE REFERENCE UNITS LAB L501.0100 74-106 mg/dL High GLU 111 Result Comment: Fasting Glucose result from 100 to 125 mg/dL suggests IMPAIRED HOMEOSTASIS per A.D.A. criteria. Please note revised GLUCOSE reference range effective 2017. LAB L501.1000 7-18 mg/dL Normal BUN 12 LAB L501.1100 0.55-1.02 mg/dL Normal CREAT,SERUM 0.98 Result Comment: The validity of the calculated GFR AND GFRAA in patients over 70 years has not been determined. Clinical correlation is essential. LAB L501.1110 >60 mL/min Normal EST GFR 61 Result Comment: Non- GFR Calc LAB L501.1115 >60 mL/min Normal EST GFR - AA 73 Result Comment: GFR Calc LAB L501.1255 ml/min Normal Estimated CRCL 48.61 LAB L501.1300 10-20 RATIO Normal BUN/CRE 12.2 LAB L501.2200 8.5-10 mg/dL Normal .1 CA 9.2 LAB L501.5300 136-14 mmol/L Normal 5 NA 139 LAB L501.5600 3.5-5. mmol/L Normal 1 K 4.1 LAB L501.5900 98-107 mmol/L Normal CL 103 LAB L501.6100 21.0-3 mmol/L Normal 2.0 CO2 30.0 LAB L501.6200 5-15 Normal GAP 6 Performed By: #### L500.2500, L501.4010 #### [facility] [address] [place], [address] TROPONIN-I Collected: 04/28/2018 Status: F Source: [place] 6:42 PM [facility] CODE TESTS RESULT OUT OF RANGE REFERENCE UNITS LAB L501.4010 <0.045 ng/mL Normal < 0.015 TROPONIN-I Result Comment: TROPONIN-I EXPECTED VALUES <0.045 Negative 0.045 - 0.590 Consistent with Cardiac Damage > OR = 0.600 Critical Value Not every elevated troponin is indicative of OK. These values should be used with clinical judgement in examining the patient's clinical picture for diagnosis. To establish a diagnosis of OK versus myocardial injury, there must be a demonstrated rise and/or fall in the troponin values, in addition to ischemic symptoms, EKG changes, new regional wall motion abnormality, and/or angiographical evidence. PLEASE NOTE: REFERENCE RANGES EDITED 18 Performed By: #### L500.2500, L501.4010 #### [facility] [address] [facility] [address] [place], [place], [address] PROTHROMBIN TIME W/INR Collected: 04/28/2018 Status: F Source: [place] 6:42 PM [facility] CODE TESTS RESULT OUT OF RANGE REFERENCE UNITS LAB L300.4150 11.7-14.9 SECONDS Normal PROTIME 12.7 LAB L300.4200 Normal INR 1.0 Performed By: #### L300.3900, L300.4310 #### [facility] [address] [place], [address] PARTIAL THROMBOPLAST Collected: 04/28/2018 Status: F Source: [place] TIME 6:42 PM [facility] CODE TESTS RESULT OUT OF RANGE REFERENCE UNITS LAB L300.4310 24.1-36.2 Seconds Normal PTT 28.7 Performed By: #### L300.3900, L300.4310 #### [facility] [address] [place], [address] BRAIN/HEAD WITHOUT Observed: 04/28/2018 Status: F Source: [place] CONTRAST 6:42 PM [facility] Imaging Services [address] [place] [address] Brain/Head without Contrast MR#: [id number] Acct: [id number] Name: JUDITH JONES Rep #: [id number] : 1955 F 63 From: Tanya Rivas MD PCP: Winston Wilson MD Status: REG ER Study: Brain/Head without Contrast Date of Exam: 04/28/18 Exam# [id number] Ordering Dr: Sudhir Horner MD STUDY: CT BRAIN WITHOUT CONTRAST REASON FOR EXAM: Female, 63 years old. Dizziness RADIATION DOSAGE (If Supplied By Facility): CTDIvol = ( 44.99 ) mGy, DLP = ( 779.24 ) mGycm TECHNIQUE: Transaxial CT imaging of the brain was performed without administration of intravenous contrast material. Individualized dose optimization techniques were used for this CT. COMPARISON: June 30, 2014 FINDINGS: The soft tissues are unremarkable. The osseous structures are unremarkable. Normal size ventricles and extra-axial spaces for the patient's age. There are scattered areas of decreased attenuation within the white matter tracts of the supratentorial brain, likely microvascular changes. There are small punctate calcifications of the basal ganglia which are seen in the aging brain as a normal variant. There is a stable old lacunar infarct in the left thalamus. No abnormalities are seen in the brainstem. The cerebellum is unremarkable. There is a stable arachnoid cyst in the right middle cranial fossa. There is no intracranial hemorrhage. There are no findings of acute ischemia. The visualized sinuses are unremarkable. CT/Brain/Head without Contrast IMPRESSION: No acute intracranial abnormalities. There are stable chronic findings. Electronically Signed: Tanya Rivas MD at 19:18 EDT Tel Direct: [phone], Service support , CC: Winston Wilson MD; Sudhir Horner MD Cash Shortage Investigator: Signed THYROID STIM HORMONE Collected: 04/28/2018 Status: F Source: [place] (TSH) 6:42 PM [facility] CODE TESTS RESULT OUT OF RANGE REFERENCE UNITS LAB L501.9520 0.358-3.74 uIU/mL Normal TSH 1.64 Performed By: #### L501.9520 #### [facility] [address] [place], [address] CERV SPINE 4 OR 5 Observed: 04/23/2018 Status: F Source: [place] VIEWS 3:52 PM [facility] Imaging Services [address] [place] [address] Cerv Spine 4 or 5 Views MR#: [id number] Acct: [id number] Name: JUDITH JONES Rep #: [id number] : 1955 F 63 From: Angel Leon MD PCP: Tiffany Berg MD Status: REG CLI Study: Cerv Spine 4 or 5 Views Date of Exam: 04/23/18 Exam# [id number] Ordering Dr: Radha Treviño SALESPERSON FASHION ACCESSORIESGrant STUDY: X-RAY - CERVICAL SPINE REASON FOR EXAM: Female, 63 years old. Pain. TECHNIQUE: 5 view(s) of the cervical spine were obtained. COMPARISON: None FINDINGS: Normal anterior atlantoaxial articulation. Normal odontoid process. There is straightening of the normal cervical lordosis. There is multi-level endplate spondylosis. There is multi-level degenerative disc disease with multilevel disc space narrowing. There is multi- level osseous foraminal stenosis. The soft tissue structures are unremarkable. There is no demonstrated fracture of the cervical spine. RAD/Cerv Spine 4 or 5 Views IMPRESSION: Degenerative change. No fracture. Electronically Signed: Angel Leon MD at 23:35 EDT , Service support , CC: Radha Treviño; Tiffany Berg MD Cash Shortage Investigator: Signed TOXICOLOGY SCREEN,UR Collected: 03/24/2018 Status: F Source: [place] 4:41 PM [facility] REPOSITORY TYPE CODE TESTS RESULT OUT OF REFERENCE UNITS RANGE LAB UPCP2 Negative Negative Phencyclidin e, Urine Result Comment: Cutoff threshold at 25 ng/mL. LAB UBENZ2 Negative Benzodiazepines, Ur Negative Result Comment: Cutoff threshold at 200 ng/mL. LAB UCOC2 Negative Cocaine, Negative Urine Result Comment: Cutoff threshold at 300 ng/mL. LAB UAMPH2 Negative Amphetamines, Urine Negative Result Comment: Cutoff threshold at 1000 ng/mL. LAB UTHC2 Negative Cannabinoids, Urine Negative Result Comment: Cutoff threshold at 50 ng/mL. LAB UOPI2 Negative Opiates, Negative Urine Result Comment: Cutoff threshold at 300 ng/mL. LAB UBARB2 Negative Barbiturates, Urine Negative Result Comment: Cutoff threshold at 200 ng/mL. LAB UETOH <11 mg/dL <11 Ethanol, Urine LAB UOXYC Negative Oxycodone, Negative Urine Result Comment: Cutoff threshold at 100 ng/mL. Comment: Immunoassay screen only. Cross reactivity with other substances can occur with immunoassay screening. Detection of any drug(s) in this urine toxicology panel is presumptive only. These tests are for med ical purposes only and should not be used for compliance monitoring, legal, or forensic use. In clinical settings, confirmatory testing is at the practitioner's discretion [1]. If clinically indicated, confirmation by high specificity, quantitative methodology may be requested on the same speci men through Client Services ([phone]) if contacted within 48 hours of initial testing. [1]Substance Abuse and Mental Health Services Administration (2012). Clinical Drug Testing in Primary Care Technical Assistance Publication Series 32. Department of Health and Human Services, [place], p.10. These tests were developed and their performance characteristics determined by [facility]'s [facility] [place] ([facility]). They have not been cleared or a pproved by the FDA. [facility] is regulated under CLIA as qualified to perform high complexity testing. These tests are used for clinical purposes. They should not be regarded as investigational or for research. Performed By: #### UTOX2 #### [facility] [address] [place], [place] [address] [facility] Observed: 03/24/2018 Status: COMPLETED Source: [place] 12:00 AM [facility] REPOSITORY Telephone (INTMWS) JUDITH JONES ([id number]) 1955 F Date Time Provider Department 03/24/18 [facility] [facility] INTWS During your visit today, we recorded the following information about you: Jeffery Ambrosio RN 03/24/2018 2:28 PM Signed Patient reports she is having nerve pain at right buttock, down right leg, to ankle. Reports x-ray shows she has a pinched nerve. Tramadol is ineffective for relief. Advised patient to sit on icepack placed where top of leg meets buttock. Patient asking if pcp could prescribe something stronger than tramadol. Yash Rios APRN.NEWSPAPER CLIPPER 03/24/2018 3:06 PM Signed Please let patient know that the best thing for sciatica is stretching exercises. Has she been able to get in with PT yet? ordered PT at her last visit, if she hasn't set up an appointment yet she needs to do this SYBIL. Also, until she completes her urine tox screen we are unable to prescribe her additional medication for pain. This too was ordered at her recent visit with . Yash Rios APRN.SHIVA Winkler LPN 03/24/2018 4:12 PM Signed Phoned patient and notified of recommendations and to complete urine. Patient also has upcoming appointment with physical therapy this . Patient verbalized understanding. Patient will be awaiting a phone call from, [facility] pain management. Kindra Reilly LPN 03/24/2018 4:16 PM Signed Consult/records faxed to Dr. Serna's office. Allergies As of Date: 03/24/2018 Noted Allergy Reaction PRINIVIL (LISINOPRIL) 06/09/2008 3 - Cough Date Reviewed: 03/13/2018 Reviewed by: Kindra Winkler LPN - Fully Assessed Reason for Visit: Medication request [Other] Reason For Visit History Recorded Prescriptions as of 03/24/2018 Sig: TRAMADOL 50 MG TABLET Take 1 tablet by mouth twice * TRAZODONE 100 MG TABLET Take 1 tablet by mouth daily * METFORMIN ER 500 MG TABLET,EX* TAKE TWO TABLETS BY MOUTH TWI* VALSARTAN 80 MG-HYDROCHLOROTH* TAKE ONE TABLET BY MOUTH ONCE* ACYCLOVIR 5 % TOPICAL CREAM Apply 1 application to affect* ALBUTEROL SULFATE HFA 90 MCG/* Inhale 2 Puffs as instructed * DULOXETINE 60 MG CAPSULE,ALBERTO* Take 1 capsule by mouth once * MELOXICAM 15 MG TABLET Take 1 tablet by mouth once d* ATORVASTATIN 40 MG TABLET Take 40 mg by mouth once eliel* PANTOPRAZOLE 40 MG TABLET,DEL* Take 1 tablet by mouth daily * BLOOD GLUCOSE TEST STRIPS Test daily LANCETS Test daily, 250.02 Problem List As Of Date 03/24/2018 Noted Resolved Essential hypertension [I10] INVALID FOR* More... IBANEZ'S ESOPHAGUS [K22.70] INVALID FOR* More... DIABETES MELLITUS TYPE II UNCONTR UNCOMPL [E11.*INVALID FOR*07/22/2014 GENERAL OSTEOARTHROSIS [M15.9] INVALID FOR* DEPRESSIVE DISORDER NEC [F32.9] INVALID FOR* Pure hypercholesterolemia [E78.00] INVALID FOR* More... 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 DM2 (diabetes mellitus, type 2) (HCC) [E11.9] INVALID FOR* DDD (degenerative disc disease), thoracic [M51.*INVALID FOR* Cervicalgia [M54.2] INVALID FOR* DDD (degenerative disc disease), cervical [M50.*INVALID FOR* Hyperlipidemia [E78.5] INVALID FOR* Left-sided low back pain without sciatica [M54.*INVALID FOR*02/13/2016 Chronic left-sided low back pain with left-side*INVALID FOR* Osteoarthritis of spine with radiculopathy, lum*INVALID FOR* Encounter Status:Closed by KINDRA WINKLER LPN on 03/24/18 XR LUMBAR 3V Observed: 03/13/2018 Status: F Source: [place] AP/LAT/L5-S1 5:05 PM [facility] * * *Final Report* * * DATE OF EXAM: Mar 13 2018 5:05PM WOX [id number] - XR LUMBAR 3V AP/LAT/L5-S1 / PROCEDURE REASON: Other cervical disc degeneration, unspecified cervical region * * * * Physician Interpretation * * * * EXAM TITLE: XR LUMBAR 3V AP/LAT/L5-S1 EXAM DATE/TIME: 03/13/2018 5:05 PM COMPARISON: Lumbar spine x-ray on 02/12/2016 CLINICAL INDICATION/HISTORY: Low back pain TECHNIQUE: AP, lateral and cone down lateral views of the lumbar spine are presented. FINDINGS: There are five gcb-sxc-oikumyp lumbar vertebra. No acute fractures demonstrated in the lumbar spine. There is grade 1 L4 on L5 anterolisthesis. L5-S1 disc space narrowing is present. There is questionable L4-5 mild disc space narrowing. There is moderate osteophyte formation with facet arthrosis in the lower lumbar spine. IMPRESSION: Lumbar spine degenerative changes with L5-S1 disc space narrowing. Overall findings unchanged. Cash Shortage Investigator: PSCB Transcribe Date/Time: Mar 13 2018 6:19P Dictated by : KASHIF RASMUSSEN MD This examination was interpreted and the report reviewed and electronically signed by: KASHIF RASMUSSEN MD on Mar 13 2018 6:21PM EST [id number] Observed: 03/13/2018 Status: COMPLETED Source: [place] 4:53 PM [facility] REPOSITORY HNO ID: [id number] Author: Kailee Kline (Rt), Tech Service: (none) Author Type: Intercell Connector Placer Type: Progress Notes Filed: 03/13/2018 5:02 PM Note Text: Radiology Service Progress Note PATIENT NAME: Judith Jones DATE OF SERVICE: March 13, 2018 TIME: 4:53 PM PATIENT IDENTITY VERIFICATION COMPLETED USING TWO (2) METHODS: Patient confirmed name verbally and Date of . PATIENT GENDER DATA: Female. status: : No status: NO. PATIENT RELEVANT IMPLANT DATA REVIEWED: Not Applicable RADIOLOGY DEPARTMENT: General X-ray: Exam(s) Completed: Spine X-Ray(s): Lumbar AP / LAT / L5-S1 PERIPHERAL IV DATA: Not applicable SIGNED BY: RT Jose March 13, 2018 4:53 PM PROGRESS Observed: 03/13/2018 Status: COMPLETED Source: [place] 4:11 PM [facility] REPOSITORY O ID: [id number] Author: Winston Wilson Service: (none) Author Type: Physician Type: Progress Notes Filed: 03/13/2018 5:21 PM Note Text: Reason for Visit Patient presents with: Establish Care: establish care Judith Jones is a 62 year old female who presents here today for Above Complaints.. Health Maintenance DTAP,TDAP,TD(1 - Tdap) PAP EVERY 5 YEARS HPV EVERY 5 YEARS DIABETIC FOOT EXAM MAMMOGRAM HPI Diabetes Mellitus - on metformin, no side effects of the medication takes it regularly. Hypertension- BP is well controlled on current regimen of Hctz and valsartan which is tolerated well. No significant side effects, careful with salt and she exercises little, used to exercise in the past but has not been doing that in the past. She eats a lot of chicken, fish and turkey, she has not been eating a lot of red meat lately. Hyperlipidemia- on statin, she tolerates it pretty good. Sciatica- she used to be with pain management in the past. Stopped going there because she did not like it much.takes daily tramadol. For the past 3 weeks she has been having severe pain, she got some prednisone and vicodin and it masked the pain. No problem-specific Assessment AND Plan notes found for this encounter. 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 - Diaphragmatic hernia without mention of obstruction or gangrene - Esophageal reflux - Generalized osteoarthrosis, unspecified site 02/06/2006 - Macular degeneration (senile) of retina, unspecified - Type II or unspecified type diabetes mellitus without mention of complication, uncontrolled 02/06/2006 - Unspecified essential hypertension 02/06/2006 PAST SURGICAL HISTORY Procedure Laterality Date - APPENDECTOMY - ENLARGE BREAST WITH IMPLANT - PAST SURGICAL HISTORY OF repair of hiatal hernia FAMILY HISTORY Problem Relation Age of Onset - Hypertension Father - Emphysema Father - Diabetes Father - Cancer Father lung - Ischemic Heart Disease Mother - hepatitis [OTHER] Mother Hepatis c - Cancer Paternal Grandmother stomach cancer Social History Substance Use Topics - Smoking status: Never Smoker - Smokeless tobacco: Never Used - Alcohol use Yes Comment: socially Past medical history, appointments, medications, allergies reviewed. Pertinent Lab/Diagnostic Studies are reviewed and discussed today Current Outpatient Prescriptions: - traZODone (DESYREL) 100 mg tablet - metFORMIN ER (GLUCOPHAGE XR) 500 mg 24 hr tablet - Valsartan-Hydrochlorothiazide 80-12.5 mg per tablet - traMADol (ULTRAM) 50 mg tablet - acyclovir (ZOVIRAX) 5 % crea - albuterol HFA (PROVENTIL HFA, VENTOLIN HFA) 90 mcg/actuation inhaler - DULoxetine (CYMBALTA) 60 mg capsule - meloxicam (MOBIC) 15 mg tablet - atorvastatin (LIPITOR) 40 mg tablet - pantoprazole (PROTONIX) 40 mg tablet - BLOOD GLUCOSE TEST STRIPS - LANCETS Review of Systems CONSTITUTIONAL: No fevers, chills night sweats, unintended weight loss CARDIOVASCULAR: No chest pain, dyspnea, palpitations, orthopnea, PND, ankle edema. PULM: No dyspnea, unexplained cough. GI: No dysphagia/odynophagia, problematic reflux, constipation, diarrhea, changes in stool habits, hematochezia, melena. : No new urinary complaints, including dysuria, gross hematuria or pyuria. NEURO: No new balance problems, peripheral weakness/paresthesias or numbness of concern. Physical Exam BP 116/76 (BP Site: Left Arm, BP Position: Sitting, BP Cuff Size: Regular Adult) Pulse 90 Resp 12 Ht 161.3 cm (5' 3.5) Wt 80.3 kg (177 lb) SpO2 97% BMI 30.86 kg/m? General appearance: Well appearing, alert, in no acute distress, well nourished. Skin: Skin color, texture, turgor normal, no suspicious rashes or lesions Head: Normocephalic, no masses, lesions, tenderness or abnormalities Eyes: Anicteric sclera. Pupils are equally round and reactive to light. Extraocular movements are intact. Lungs: Lungs clear to auscultation. No wheezing, rhonchi, rales Heart: RRR without murmur, gallop, or rubs. Extremities: No deformities, edema, skin discoloration, clubbing or cyanosis. Good capillary refill. ASSESSMENT/PLAN: 1. Osteoarthritis of spine with radiculopathy, lumbar region - ICD9: 721.3, ICD10: M47.26 (primary diagnosis) Refilled her tramadol Checked oarrs and asked her to do a tox screen. Today she notes she has not taken any opiates at all 2. DDD (degenerative disc disease), cervical - ICD9: 722.4, ICD10: M50.30 3. Type 2 diabetes mellitus without complication, without long-term current use of insulin (HCC) - ICD9: 250.00, ICD10: E11.9 Controlled. Recheck in april 13. Essential hypertension - ICD9: 401.9, ICD10: I10 - good control - Recommended regular aerobic exercise. - Recommend home blood pressure monitoring, to bring results in on next visit - Goal of BP <130/80 4. Essential hypertension - ICD9: 401.9, ICD10: I10 - good control - Recommended regular aerobic exercise. - Recommend home blood pressure monitoring, to bring results in on next visit - Goal of BP <130/80 5. Encounter for screening mammogram for high-risk patient - ICD9: V76.11, ICD10: Z12.31 - Follow up for annual exam in one year. - ASHLEY SCREENING 6. Chronic narcotic use - ICD9: 305.50, ICD10: F11.90 - TOX SCREEN ROUT UR 7. Sciatica of right side - ICD9: 724.3, ICD10: M54.31 Mechanical low back pain - Bedrest for 2-3 days - CONSULT TO PHYSICAL THERAPY WINSTON WILSON MD CNOV Observed: 03/13/2018 Status: COMPLETED Source: [place] 4:00 PM [facility] Office Visit (INTMWS) JUDITH JONES ([id number]) 1955 F Date Time Provider Department 03/13/18 4:00 PM WINSTON WILSON During your visit today, we recorded the following information about you: Pulse Respiration Blood pressure Weight 90/minute 12/minute 116/76 80.3 kg Height 1.613 m Winston Wilson 03/13/2018 5:21 PM Signed Reason for Visit Patient presents with: Establish Care: establish care Judith Jones is a 62 year old female who presents here today for Above Complaints.. Health Maintenance DTAP,TDAP,TD(1 - Tdap) PAP EVERY 5 YEARS HPV EVERY 5 YEARS DIABETIC FOOT EXAM MAMMOGRAM HPI Diabetes Mellitus - on metformin, no side effects of the medication takes it regularly. Hypertension- BP is well controlled on current regimen of Hctz and valsartan which is tolerated well. No significant side effects, careful with salt and she exercises little, used to exercise in the past but has not been doing that in the past. She eats a lot of chicken, fish and turkey, she has not been eating a lot of red meat lately. Hyperlipidemia- on statin, she tolerates it pretty good. Sciatica- she used to be with pain management in the past. Stopped going there because she did not like it much.takes daily tramadol. For the past 3 weeks she has been having severe pain, she got some prednisone and vicodin and it masked the pain. No problem-specific Assessment AND Plan notes found for this encounter. 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 - Diaphragmatic hernia without mention of obstruction or gangrene - Esophageal reflux - Generalized osteoarthrosis, unspecified site 02/06/2006 - Macular degeneration (senile) of retina, unspecified - Type II or unspecified type diabetes mellitus without mention of complication, uncontrolled 02/06/2006 - Unspecified essential hypertension 02/06/2006 PAST SURGICAL HISTORY Procedure Laterality Date - APPENDECTOMY - ENLARGE BREAST WITH IMPLANT - PAST SURGICAL HISTORY OF repair of hiatal hernia FAMILY HISTORY Problem Relation Age of Onset - Hypertension Father - Emphysema Father - Diabetes Father - Cancer Father lung - Ischemic Heart Disease Mother - hepatitis [OTHER] Mother Hepatis c - Cancer Paternal Grandmother stomach cancer Social History Substance Use Topics - Smoking status: Never Smoker - Smokeless tobacco: Never Used - Alcohol use Yes Comment: socially Past medical history, appointments, medications, allergies reviewed. Pertinent Lab/Diagnostic Studies are reviewed and discussed today Current Outpatient Prescriptions: - traZODone (DESYREL) 100 mg tablet - metFORMIN ER (GLUCOPHAGE XR) 500 mg 24 hr tablet - Valsartan-Hydrochlorothiazide 80-12.5 mg per tablet - traMADol (ULTRAM) 50 mg tablet - acyclovir (ZOVIRAX) 5 % crea - albuterol HFA (PROVENTIL HFA, VENTOLIN HFA) 90 mcg/actuation inhaler - DULoxetine (CYMBALTA) 60 mg capsule - meloxicam (MOBIC) 15 mg tablet - atorvastatin (LIPITOR) 40 mg tablet - pantoprazole (PROTONIX) 40 mg tablet - BLOOD GLUCOSE TEST STRIPS - LANCETS Review of Systems CONSTITUTIONAL: No fevers, chills night sweats, unintended weight loss CARDIOVASCULAR: No chest pain, dyspnea, palpitations, orthopnea, PND, ankle edema. PULM: No dyspnea, unexplained cough. GI: No dysphagia/odynophagia, problematic reflux, constipation, diarrhea, changes in stool habits, hematochezia, melena. : No new urinary complaints, including dysuria, gross hematuria or pyuria. NEURO: No new balance problems, peripheral weakness/paresthesias or numbness of concern. Physical Exam BP 116/76 (BP Site: Left Arm, BP Position: Sitting, BP Cuff Size: Regular Adult) Pulse 90 Resp 12 Ht 161.3 cm (5' 3.5) Wt 80.3 kg (177 lb) SpO2 97% BMI 30.86 kg/m? General appearance: Well appearing, alert, in no acute distress, well nourished. Skin: Skin color, texture, turgor normal, no suspicious rashes or lesions Head: Normocephalic, no masses, lesions, tenderness or abnormalities Eyes: Anicteric sclera. Pupils are equally round and reactive to light. Extraocular movements are intact. Lungs: Lungs clear to auscultation. No wheezing, rhonchi, rales Heart: RRR without murmur, gallop, or rubs. Extremities: No deformities, edema, skin discoloration, clubbing or cyanosis. Good capillary refill. ASSESSMENT/PLAN: 1. Osteoarthritis of spine with radiculopathy, lumbar region - ICD9: 721.3, ICD10: M47.26 (primary diagnosis) Refilled her tramadol Checked oarrs and asked her to do a tox screen. Today she notes she has not taken any opiates at all 2. DDD (degenerative disc disease), cervical - ICD9: 722.4, ICD10: M50.30 3. Type 2 diabetes mellitus without complication, without long-term current use of insulin (HCC) - ICD9: 250.00, ICD10: E11.9 Controlled. Recheck in april 13. Essential hypertension - ICD9: 401.9, ICD10: I10 - good control - Recommended regular aerobic exercise. - Recommend home blood pressure monitoring, to bring results in on next visit - Goal of BP <130/80 4. Essential hypertension - ICD9: 401.9, ICD10: I10 - good control - Recommended regular aerobic exercise. - Recommend home blood pressure monitoring, to bring results in on next visit - Goal of BP <130/80 5. Encounter for screening mammogram for high-risk patient - ICD9: V76.11, ICD10: Z12.31 - Follow up for annual exam in one year. - ASHLEY SCREENING 6. Chronic narcotic use - ICD9: 305.50, ICD10: F11.90 - TOX SCREEN ROUT UR 7. Sciatica of right side - ICD9: 724.3, ICD10: M54.31 Mechanical low back pain - Bedrest for 2-3 days - CONSULT TO PHYSICAL THERAPY WINSTON WILSON MD Referring Provider: NAOMI AYALA ([facility]) [[id number]] Allergies As of Date: 03/13/2018 Noted Allergy Reaction PRINIVIL (LISINOPRIL) 06/09/2008 3 - Cough Date Reviewed: 03/13/2018 Reviewed by: Kindra Winkler LPN - Fully Assessed Reason for Visit: Establish Care [42] Cmt: establish care Primary Visit Diagnosis:Osteoarthritis of spine with radiculopathy, lumbar region [M47.26] Other Visit Diagnoses:DDD (degenerative disc disease), cervical [M50.30] Type 2 diabetes mellitus without complication, without long-term current use of insulin (HCC) [E11.9] Essential hypertension [I10] Encounter for screening mammogram for high-risk patient [Z12.31] Chronic narcotic use [F11.90] Sciatica of right side [M54.31] Order(s):TOX SCREEN ROUT UR [SQUTOX2] Order #: [id number] FUTURE XR LUMBAR GENERAL 3V AP/LAT/L5-S1 [5318870] Order #: [id number] FUTURE HGB A1C [YHDKO0B] Order #: [id number] FUTURE ASHLEY SCREENING [7900377] Order #: [id number] FUTURE CONSULT TO PHYSICAL THERAPY [9032] Order #: [id number]: 1 predniSONE (DELTASONE) 10 mg tabletTake 4 tabs daily for 3 days, then 2 tabs daily for 3 days, then 1 tab daily for 3 days with food.Disp: 21 tabletRfl: 1 traMADol (ULTRAM) 50 mg tabletTake 1 tablet by mouth twice daily as needed for Pain for up to 60 days. May fill on or after 10/11/17Disp: 60 tabletRfl: 2 Prescriptions as of 03/13/2018 Sig: PREDNISONE 10 MG TABLET Take 4 tabs daily for 3 days,* TRAMADOL 50 MG TABLET Take 1 tablet by mouth twice * TRAZODONE 100 MG TABLET Take 1 tablet by mouth daily * METFORMIN ER 500 MG TABLET,EX* TAKE TWO TABLETS BY MOUTH TWI* VALSARTAN 80 MG-HYDROCHLOROTH* TAKE ONE TABLET BY MOUTH ONCE* ACYCLOVIR 5 % TOPICAL CREAM Apply 1 application to affect* ALBUTEROL SULFATE HFA 90 MCG/* Inhale 2 Puffs as instructed * DULOXETINE 60 MG CAPSULE,ALBERTO* Take 1 capsule by mouth once * MELOXICAM 15 MG TABLET Take 1 tablet by mouth once d* ATORVASTATIN 40 MG TABLET Take 40 mg by mouth once eliel* PANTOPRAZOLE 40 MG TABLET,DEL* Take 1 tablet by mouth daily * BLOOD GLUCOSE TEST STRIPS Test daily LANCETS Test daily, 250.02 Problem List As Of Date 03/13/2018 Noted Resolved Essential hypertension [I10] INVALID FOR* More... IBANEZ'S ESOPHAGUS [K22.70] INVALID FOR* More... DIABETES MELLITUS TYPE II UNCONTR UNCOMPL [E11.*INVALID FOR*07/22/2014 GENERAL OSTEOARTHROSIS [M15.9] INVALID FOR* DEPRESSIVE DISORDER NEC [F32.9] INVALID FOR* Pure hypercholesterolemia [E78.00] INVALID FOR* More... 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 DM2 (diabetes mellitus, type 2) (HCC) [E11.9] INVALID FOR* DDD (degenerative disc disease), thoracic [M51.*INVALID FOR* Cervicalgia [M54.2] INVALID FOR* DDD (degenerative disc disease), cervical [M50.*INVALID FOR* Hyperlipidemia [E78.5] INVALID FOR* Left-sided low back pain without sciatica [M54.*INVALID FOR*02/13/2016 Chronic left-sided low back pain with left-side*INVALID FOR* Osteoarthritis of spine with radiculopathy, lum*INVALID FOR* Prescriptions ordered this encounter Disp Refills Start End PREDNISONE 10 MG TABLET 21 t* 1 03/13/2018 2018 Sig: Take 4 tabs daily for 3 days, then 2 tabs daily for 3 days, then 1 tab daily for 3 days with food. TRAMADOL 50 MG TABLET 60 t* 2 03/13/2018 05/12/2018 Class: Print RX Route: ORAL Sig: Take 1 tablet by mouth twice daily as needed for Pain for up to 60 days. May fill on or after 10/11/17 Medications Discontinued During This Encounter traMADol (ULTRAM) 50 mg tablet 60 t* 2 12/11/2017 03/13/2018 Class: Print RX Route: ORAL Sig: Take 1 tablet by mouth twice daily as needed for Pain for up to 90 days. May fill on or after 10/11/17 Disc: Reason for discontinue is not on file. Letter Text [facility], [facility] [id number] Controlled Substance Agreement GOAL The purpose of this Agreement is to prevent misunderstandings about certain medicines you will be taking for pain management. It will help both you and your doctor to comply with laws regarding controlled pharmaceuticals. I understand that this Agreement is essential to the trust and confidence necessary in a doctor/patient relationship and that my doctor undertakes to treat me based on this Agreement. AGREEMENT I, Ms. Judith Jones, understand that if I break this Agreement, my doctor will stop prescribing these pain-control medicines. In this case, my doctor will taper off the medicine over a period of several days, as necessary, to avoid withdrawal symptoms. A drug-dependence treatment program may be recommended. In certain cases, you may be terminated as a patient. 1. I will communicate fully with my doctor about the character and intensity of my pain, its effect on my daily life, and how well the medicine is helping to relieve the pain. 2. I will not use any illegal controlled substances, including marijuana, cocaine, etc. Random urine and/or serum toxicology screens may be requested; this testing may be unannounced and occur at any time. I agree that I will submit to a blood or urine test if requested by my doctor to determine my compliance with my program of pain control medicine. 3. I will not share, sell or trade my medication with anyone. 4. I will not attempt to obtain any controlled substance from any other doctor, other than a covering physician. 5. I will safeguard my pain medicine from loss or theft. Lost or stolen medicines may not be replaced. 6. I agree that refills of my prescriptions for pain medicine will be made only at the time of an office visit or during regular office hours. No refills will be available on evenings or weekends. 7. I authorize the doctor and my pharmacy to cooperate fully with any city, state or federal law enforcement agency, including this state's Board of Pharmacy, in the investigation of any possible misuse, sale, or other diversion of my medication. I authorize my doctor to provide a copy of this Agreement to my pharmacy. I agree to waive any applicable privilege or right of privacy or confidentiality with respect to these authorizations. Pharmacy: Location: Phone number: 8. I agree that I will use my medicine at a rate no greater than the prescribed rate and that use of my medicine at a greater rate may result in my being without medication for a period of time. 9. If legal authorities have questions concerning treatment, for example, if a patient were obtaining medications at several pharmacies, all confidentiality is waived and the authorities may be given full access to the [facility] Records of narcotic administration. 10. I agree to follow these guidelines and they have been fully explained to me. All of my questions and concerns regarding treatment have been answered. A copy of this document has been given to me. Patient: Date: March 13, 2018 Judith Jones [id number] Physician: Date: March 13, 2018 WINSTON WILSON MD Encounter Status:Closed by WINSTON WILSON MD on 03/13/18 EMERGENCY DEPARTMENT Observed: 03/04/2018 Status: F Source: [place] SUMMARY 5:59 PM [facility] Medical Records Department [address] [place] [id number] Emergency Department Summary 03/04/18 1407 MR#: [id number] Acct: [id number] Name: JUDITH JONES Rep #: [id number] : 1955 62 From: Cresencio Garcia MD PCP: Tiffany Berg MD Status: DEP ER - ER Visit Summary Date of Service: 03/04/18 Chief Complaint: Right back and leg pain. History of Present Illness: The patient is a 62 F recently drove from [place] back to [place] is about 15 hours. States since that time she has had right lower back pain at times it radiates into her hamstring. Denies any weakness. No numbness. She had a minor fall during the trip but said that she had no pain at that time is only after she got home after taking the long ride. No prior hip or back surgery. Physical Examination: Well-appearing older female. Vital signs are stable and afebrile. HEENT exam unremarkable neck nontender. Lungs clear to auscultation bilaterally. Heart regular rate and rhythm no murmur. Abdomen soft nontender Ted no giving or masses. Extremities moves all 4. Neurovascularly intact. No cauda equina no saddle anesthesia. Dorsi plantar flexion intact. She does have a positive straight leg raise on the right at about 15-30 . Left leg is unremarkable. Back exam spine is completely nontender there is no redness or warmth. There is no discoloration or signs of trauma she has exquisite tenderness over her right SI joint consistent with acute sciatica. Test Results: None Emergency Department Course and Treatment: Treated for acute sciatica. Will be given prednisone here and Vashon. Treatment Plan: Prednisone 40 mg a day for total 7 days. Vashon for pain 20 no refill. Follow-up with primary care physician. Disposition: Discharge Impression: Acute right sciatica This note was generated with [employer] dictation software. It may contain incorrect words, spelling, and punctuation that were not noted in review of the chart prior to signing ED Disposition - Plan for ED Patient: Chief Complaint: Lower Extremity Injury What to do if you have Problems For any increased pain, shortness of breath, bleeding, nausea or vomiting, chest pain, or any unexpected problems, contact your Primary Care Provider. Call [facility] ([phone]) or report to the closest Emergency Room. Call 911 if necessary. 03/04/18 6721 <Electronically signed by Cresencio Garcia MD> Date Cresencio Garcia MD Cosigner Signature (If Indicated): Date CC: Tiffany Berg MD DISCHARGE INSTRUCTION Observed: 03/04/2018 Status: F Source: [place] 5:59 PM [facility] Medical Records Department [address] [place] [address] Discharge Instruction 03/04/18 1414 MR#: [id number] Acct: [id number] Name: JUDITH JONES Rep #: [id number] : 1955 62 From: Cresencio Garcia MD PCP: Tiffany Berg MD Status: DEP ER ED Disposition - Plan for ED Patient: Disposition: Home or Assisted Living Chief Complaint: Lower Extremity Injury Instructions: ED Sciatica Prescriptions: Hydrocodone Bitart/Apap 5-325 [Vashon 5MG-325MG] 1 - 2 tab PO Q4H PRN PRN #20 tab PRN Reason: Pain Prednisone [Deltasone] 40 mg PO DAILY 7 Days tab Additional Instructions: Follow-up with your doctor. Ice to the painful sciatic area. Prednisone 40 g a day for 1 week to decrease inflammation. Vashon for pain. What to do if you have Problems For any increased pain, shortness of breath, bleeding, nausea or vomiting, chest pain, or any unexpected problems, contact your Primary Care Provider. Call [facility] ([phone]) or report to the closest Emergency Room. Call 911 if necessary. 03/04/18 1759 <Electronically signed by Cresencio Garcia MD> Date Cresencio Garcia MD Cosigner Signature (If Indicated): Date CC: Tiffany Berg MD PROGRESS Observed: 12/11/2017 Status: COMPLETED Source: [place] 11:14 AM [facility] O ID: [id number] Author: Naomi (Chair Frame Builder) Older Service: (none) Author Type: Nurse Practitioner Type: Progress Notes Filed: 12/11/2017 11:47 AM Note Text: CC: Patient presents with: Medication Follow-up: RX refills HPI Judith Jones is a 62 year old female who presents today for refill on Tramadol. History chronic pain? Yes Current pain level? 5 Location? Low back Baseline pain level? 5 Acceptable pain level? 5 Current pain regimen: Opiates and non-opiates Tramadol twice a day. Occasional Ibuprofen Past Pain regimen: Same History of Addiction/Alcoholism: No Length of time on pain medication: 9 year(s) Facility or PCP who prescribes their pain regimen: Previous PCP, Dr. Berg. Will be establishing care with Dr. Wilson but has missed last two appointments. Hx pain management? Yes, Dr. 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 - Diaphragmatic hernia without mention of obstruction or gangrene - Esophageal reflux - Generalized osteoarthrosis, unspecified site 02/06/2006 - Macular degeneration (senile) of retina, unspecified - Type II or unspecified type diabetes mellitus without mention of complication, uncontrolled 02/06/2006 - Unspecified essential hypertension 02/06/2006 PAST SURGICAL HISTORY Procedure Laterality Date - APPENDECTOMY - ENLARGE BREAST WITH IMPLANT - PAST SURGICAL HISTORY OF repair of hiatal hernia ALLERGIES Prinivil [Lisinopril] MEDICATIONS traZODone (DESYREL) 100 mg tablet Take 1 tablet by mouth daily at bedtime. Indications: insomnia acyclovir (ZOVIRAX) 5 % crea Apply 1 application to affected area five times daily. albuterol HFA (PROVENTIL HFA, VENTOLIN HFA) 90 mcg/actuation inhaler Inhale 2 Puffs as instructed every 4 hours as needed for Wheezing/Shortness of Breath. DULoxetine (CYMBALTA) 60 mg capsule Take 1 capsule by mouth once daily. Take in addition to 30 mg capsule meloxicam (MOBIC) 15 mg tablet Take 1 tablet by mouth once daily. Take with food. metFORMIN ER (GLUCOPHAGE XR) 500 mg 24 hr tablet Take 2 tablets by mouth twice daily. Valsartan-Hydrochlorothiazide (DIOVAN HCT) 80-12.5 mg per tablet Take 1 tablet by mouth once daily. atorvastatin (LIPITOR) 40 mg tablet Take 40 mg by mouth once daily. pantoprazole (PROTONIX) 40 mg tablet Take 1 tablet by mouth daily before breakfast. Take on empty stomach, 1/2 hr before meal. BLOOD GLUCOSE TEST STRIPS Test daily LANCETS Test daily, 250.02 traMADol (ULTRAM) 50 mg tablet Take 1 tablet by mouth twice daily as needed for Pain for up to 90 days. May fill on or after 12/2/17 FAMILY HISTORY Problem Relation Age of Onset - Cancer Paternal Grandmother stomach cancer - Hypertension Father - Ischemic Heart Disease Mother - Emphysema Father - hepatitis[Other] [OTHER] Mother Hepatis c - Diabetes Father - Cancer Father lung Social History Substance Use Topics - Smoking status: Never Smoker - Smokeless tobacco: Never Used - Alcohol use Yes Comment: socially PHYSICAL EXAM BP 100/70 Pulse 79 Temp (!) 35.9 ?C (96.6 ?F) (Temporal Artery) Resp 14 Wt 76.7 kg (169 lb) SpO2 96% BMI 29.47 kg/m2 General Appearance: well appearing, in no acute distress, alert Lungs: Lungs clear to auscultation. No wheezing, rhonchi, rales Heart: RRR without murmur, gallop, or rubs. No ectopy ASSESSMENT/PLAN: 1. Osteoarthritis of spine with radiculopathy, lumbar region - ICD9: 721.3, ICD10: M47.26 Patient stable on Tramadol. OARRS website checked and validated. All prescriptions have been APPROPRIATELY filled. No suspicious activity was identified.- 12/11/2017 by Naomi Ayala CNP Needs to establish with Dr. Wilson for any further refills. Patient advised she will not be able to refill if she does not keep appointment with Dr. Wilson. She verbalized understanding. - TRAMADOL 50 MG TABLET Naomi Ayala CNP Prescription instructions reviewed with patient as applicable. Potential red flag symptoms discussed with the patient. Reviewed appropriate action plan to take if red flag symptoms occur. Patient agreeable to treatment plan. SINCERE Observed: 12/11/2017 Status: COMPLETED Source: [place] 10:40 AM [facility] REPOSITORY Office Visit (INTMWS) JUDITH JONES ([id number]) 1955 F Date Time Provider Department 12/11/17 10:40 AM NAOMI AYALA) INTMWS During your visit today, we recorded the following information about you: Temperature Pulse Respiration Blood pressure 96.6 degrees 79/minute 14/minute 100/70 Weight 76.7 kg Naomi Older, NEWSPAPER CLIPPER 12/11/2017 11:47 AM Signed CC: Patient presents with: Medication Follow-up: RX refills HPI Judith Jones is a 62 year old female who presents today for refill on Tramadol. History chronic pain? Yes Current pain level? 5 Location? Low back Baseline pain level? 5 Acceptable pain level? 5 Current pain regimen: Opiates and non-opiates Tramadol twice a day. Occasional Ibuprofen Past Pain regimen: Same History of Addiction/Alcoholism: No Length of time on pain medication: 9 year(s) Facility or PCP who prescribes their pain regimen: Previous PCP, Dr. Berg. Will be establishing care with Dr. Wilson but has missed last two appointments. Hx pain management? Yes, Dr. 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 - Diaphragmatic hernia without mention of obstruction or gangrene - Esophageal reflux - Generalized osteoarthrosis, unspecified site 02/06/2006 - Macular degeneration (senile) of retina, unspecified - Type II or unspecified type diabetes mellitus without mention of complication, uncontrolled 02/06/2006 - Unspecified essential hypertension 02/06/2006 PAST SURGICAL HISTORY Procedure Laterality Date - APPENDECTOMY - ENLARGE BREAST WITH IMPLANT - PAST SURGICAL HISTORY OF repair of hiatal hernia ALLERGIES Prinivil [Lisinopril] MEDICATIONS traZODone (DESYREL) 100 mg tablet Take 1 tablet by mouth daily at bedtime. Indications: insomnia acyclovir (ZOVIRAX) 5 % crea Apply 1 application to affected area five times daily. albuterol HFA (PROVENTIL HFA, VENTOLIN HFA) 90 mcg/actuation inhaler Inhale 2 Puffs as instructed every 4 hours as needed for Wheezing/Shortness of Breath. DULoxetine (CYMBALTA) 60 mg capsule Take 1 capsule by mouth once daily. Take in addition to 30 mg capsule meloxicam (MOBIC) 15 mg tablet Take 1 tablet by mouth once daily. Take with food. metFORMIN ER (GLUCOPHAGE XR) 500 mg 24 hr tablet Take 2 tablets by mouth twice daily. Valsartan-Hydrochlorothiazide (DIOVAN HCT) 80-12.5 mg per tablet Take 1 tablet by mouth once daily. atorvastatin (LIPITOR) 40 mg tablet Take 40 mg by mouth once daily. pantoprazole (PROTONIX) 40 mg tablet Take 1 tablet by mouth daily before breakfast. Take on empty stomach, 1/2 hr before meal. BLOOD GLUCOSE TEST STRIPS Test daily LANCETS Test daily, 250.02 traMADol (ULTRAM) 50 mg tablet Take 1 tablet by mouth twice daily as needed for Pain for up to 90 days. May fill on or after 10/11/17 FAMILY HISTORY Problem Relation Age of Onset - Cancer Paternal Grandmother stomach cancer - Hypertension Father - Ischemic Heart Disease Mother - Emphysema Father - hepatitis[Other] [OTHER] Mother Hepatis c - Diabetes Father - Cancer Father lung Social History Substance Use Topics - Smoking status: Never Smoker - Smokeless tobacco: Never Used - Alcohol use Yes Comment: socially PHYSICAL EXAM BP 100/70 Pulse 79 Temp (!) 35.9 ?C (96.6 ?F) (Temporal Artery) Resp 14 Wt 76.7 kg (169 lb) SpO2 96% BMI 29.47 kg/m2 General Appearance: well appearing, in no acute distress, alert Lungs: Lungs clear to auscultation. No wheezing, rhonchi, rales Heart: RRR without murmur, gallop, or rubs. No ectopy ASSESSMENT/PLAN: 1. Osteoarthritis of spine with radiculopathy, lumbar region - ICD9: 721.3, ICD10: M47.26 Patient stable on Tramadol. OARRS website checked and validated. All prescriptions have been APPROPRIATELY filled. No suspicious activity was identified.- 12/11/2017 by Naomi Ayala CNP Needs to establish with Dr. Wilson for any further refills. Patient advised she will not be able to refill if she does not keep appointment with Dr. Wilson. She verbalized understanding. - TRAMADOL 50 MG TABLET Naomi Ayala CNP Prescription instructions reviewed with patient as applicable. Potential red flag symptoms discussed with the patient. Reviewed appropriate action plan to take if red flag symptoms occur. Patient agreeable to treatment plan. Referring Provider: SELF [200] Allergies As of Date: 12/11/2017 Noted Allergy Reaction PRINIVIL (LISINOPRIL) 06/09/2008 3 - Cough Date Reviewed: 12/11/2017 Reviewed by: Aleshia Christine Shoe Repairer Helper - Fully Assessed Reason for Visit: Medication Follow-up [270] Cmt: RX refills Primary Visit Diagnosis:Osteoarthritis of spine with radiculopathy, lumbar region [M47.26] Order(s):traMADol (ULTRAM) 50 mg tabletTake 1 tablet by mouth twice daily as needed for Pain for up to 90 days. May fill on or after 10/11/17Disp: 60 tabletRfl: 2 Prescriptions as of 12/11/2017 Sig: TRAZODONE 100 MG TABLET Take 1 tablet by mouth daily * ACYCLOVIR 5 % TOPICAL CREAM Apply 1 application to affect* ALBUTEROL SULFATE HFA 90 MCG/* Inhale 2 Puffs as instructed * DULOXETINE 60 MG CAPSULE,ALBERTO* Take 1 capsule by mouth once * MELOXICAM 15 MG TABLET Take 1 tablet by mouth once d* METFORMIN ER 500 MG TABLET,EX* Take 2 tablets by mouth twice* VALSARTAN 80 MG-HYDROCHLOROTH* Take 1 tablet by mouth once d* ATORVASTATIN 40 MG TABLET Take 40 mg by mouth once eliel* PANTOPRAZOLE 40 MG TABLET,DEL* Take 1 tablet by mouth daily * BLOOD GLUCOSE TEST STRIPS Test daily LANCETS Test daily, 250.02 TRAMADOL 50 MG TABLET Take 1 tablet by mouth twice * Problem List As Of Date 12/11/2017 Noted Resolved Essential hypertension [I10] INVALID FOR* More... IBANEZ'S ESOPHAGUS [K22.70] INVALID FOR* More... DIABETES MELLITUS TYPE II UNCONTR UNCOMPL [E11.*INVALID FOR*07/22/2014 GENERAL OSTEOARTHROSIS [M15.9] INVALID FOR* DEPRESSIVE DISORDER NEC [F32.9] INVALID FOR* Pure hypercholesterolemia [E78.00] INVALID FOR* More... 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 DM2 (diabetes mellitus, type 2) (HCC) [E11.9] INVALID FOR* DDD (degenerative disc disease), thoracic [M51.*INVALID FOR* Cervicalgia [M54.2] INVALID FOR* DDD (degenerative disc disease), cervical [M50.*INVALID FOR* Hyperlipidemia [E78.5] INVALID FOR* Left-sided low back pain without sciatica [M54.*INVALID FOR*02/13/2016 Chronic left-sided low back pain with left-side*INVALID FOR* Osteoarthritis of spine with radiculopathy, lum*INVALID FOR* Prescriptions ordered this encounter Disp Refills Start End TRAMADOL 50 MG TABLET 60 t* 2 12/11/2017 03/11/2018 Class: Print RX Route: ORAL Sig: Take 1 tablet by mouth twice daily as needed for Pain for up to 90 days. May fill on or after 10/11/17 Medications Discontinued During This Encounter traMADol (ULTRAM) 50 mg tablet 60 t* 0 11/12/2017 12/11/2017 Class: Call Rx Route: ORAL Sig: Take 1 tablet by mouth twice daily as needed for up to 30 days. Disc: Reason for discontinue is not on file. traMADol (ULTRAM) 50 mg tablet 60 t* 0 11/12/2017 12/11/2017 Class: Print RX Route: ORAL Sig: Take 1 tablet by mouth twice daily as needed for Pain for up to 30 days. May fill on or after 10/11/17 Disc: Reason for discontinue is not on file. Encounter Status:Closed by NAOMI AYALA CNP on 12/11/17 ALBUMIN/CREAT RATIO Collected: 12/09/2017 Status: F Source: [place] 11:49 AM [facility] REPOSITORY TYPE CODE TESTS RESULT OUT OF REFERENCE UNITS RANGE LAB UCRR 20-300 mg/dL High Creatinine,Ur 374.4 ine,Ran LAB UALBR 0.0-23.0 mg/L High Albumin Urine 92.3 Random LAB UALBCR 0-30 mg/g Albumin/Creat 25 Ratio Result Comment: 30 to 300 mg/g indicates an increased risk for diabetic nephropathy. Greater than 300 mg/g is consistent with clinical nephropathy. (Am J Kidney Disease 1995, 25:107) Performed By: #### UACR #### [facility] [address] [place], [place] [address] HEMOGLOBIN A1C Collected: 12/09/2017 Status: F Source: [place] 11:45 AM [facility] REPOSITORY TYPE CODE TESTS RESULT OUT OF REFERENCE UNITS RANGE LAB HGBA1C 4.3-5.6 % High Hemoglobin A1c 6.3 LAB HBA0 mg/dL Est. Average Glucose 134 Result Comment: eAG: (Estimated average glucose) is a calculated value from HgbA1c and is outside sales representative of the average blood glucose level in the last 2-3 month period. Performed By: #### HBA1C, BMP, LIPNF #### [facility] [address] [place], [place] [address] BASIC METABOLIC PANL Collected: 12/09/2017 Status: F Source: [place] 11:45 AM [facility] REPOSITORY TYPE CODE TESTS RESULT OUT OF REFERENCE UNITS RANGE LAB GLU 74-99 mg/dL High Glucose 128 Result Comment: The [place] Diabetes Association (ADA) provides guidance for cutoff values for fasting glucose and random glucose. The ADA defines fasting as no caloric intake for at least 8 hours. Fas ting plasma glucose results between 100 to 125 mg/dL indicate increased risk for diabetes (prediabetes). Fasting plasma glucose results greater than or equal to 126 mg/dL meet the criteria for diagnosis of diabetes. In the absence of unequivocal hyperglycemia, results should be confirmed by repeat testing. In a patient with classic symptoms of hyperglycemia or hyperglycemic crisis, random plasma glucose results greater than or equal to 200 mg/dL meet the criteria for diagnosis of diabetes. Reference: Standards of Medical Care in Diabetes 2016, [place] Diabetes Association. Diabetes Care. 2016.39(Suppl 1). LAB BUN 7-21 mg/dL BUN 12 LAB CRET 0.58-0.96 mg/dL Creatinine 0.84 LAB NA 136-144 mmol/L Sodium 143 LAB K 3.7-5.1 mmol/L Potassium 4.1 LAB CL 97-105 mmol/L Chloride 99 LAB CO2 22-30 mmol/L CO2 22 LAB AGAP 9-18 mmol/L Anion Gap High 22 LAB CA 8.5-10.2 mg/dL Calcium, Total 9.5 LAB GFRAA eGFR- Amer. >60 LAB GFRNAA . eGFR-All Other Races >60 Result Comment: eGFR (Estimated GFR) Units of measure: mL/min/1.73 meters squared eGFR is derived from the reexpressed MDRD Study equation using the following parameters: serum creatinine, age, gender and race. The creatinine assay has been calibrated to be traceable to IDMS. An eGFR <60 mL/min/1.73m2 for >3 months is consistent with chronic kidney disease. Refer to KDOQI guidelines for clinical interpretation. In patients with unstable renal function, e.g. those with acute kidney injury, the eGFR may not accurately reflect actual GFR. Performed By: #### HBA1C, BMP, LIPNF #### [facility] [address] [place], [place] [address] LIPID PANEL, NONFAST Collected: 12/09/2017 Status: F Source: [place] 11:45 AM [facility] REPOSITORY TYPE CODE TESTS RESULT OUT OF REFERENCE UNITS RANGE LAB CHOLNF <200 mg/dL Total High Cholesterol NF 230 Result Comment: <200 mg/dL, Desirable 200-239 mg/dL, Borderline high >239 mg/dL, High LAB TRIGNF <150 mg/dL Triglycerides, NF 94 Result Comment: <150 mg/dL, Normal 150-199 mg/dL, Borderline high 200-499 mg/dL, High >499 mg/dL, Very high LAB HDLNF >39 mg/dL HDL Cholesterol, NF 70 Result Comment: 40-59 mg/dL, Acceptable >59 mg/dL, High: Negative risk factor for coronary heart disease <40 mg/dL, Low: Positive risk factor for coronary heart disease LAB LDLNF <100 mg/dL LDL Cholesterol, High NF 141 Result Comment: <100 mg/dL, Optimal 100-129 mg/dL, Near optimal/above optimal 130-159 mg/dL, Borderline high 160-189 mg/dL, High >189 mg/dL, Very high Secondary prevention optimal LDL Cholesterol levels are recommended to be < 70 mg/dL LAB NOHDLN <130 mg/dL High Non HDL Chol, 160 NF Result Comment: <130 mg/dL, Optimal 130-159 mg/dL, Near optimal/above optimal 160-189 mg/dL, Borderline high 190-219 mg/dL, High >219 mg/dL, Very high Secondary prevention optimal non HDL Cholesterol levels are recommended to be < 100 mg/dL LAB VLDLNF <30 mg/dL VLDL Cholesterol, NF 19 LAB TCHDLN <5.10 mg/dL T Chol/HDL Ratio NF 3.29 LAB LDLHDN <2.54 mg/dL LDL/HDL Ratio, NF 2.01 Result Comment: Reference: 1. National Cholesterol Education Program ATP III Guideline At-A-Glance Quick Desk Reference: National Heart, Lung, and Blood Morton. National Institutes of Health. 2001: NIH Publication No. 01-3305. 2. An International Atherosclerosis Society position paper: global recommendations for the management of dyslipidemia: executive summary, Atherosclerosis. 2014: 232(2):410-413. Performed By: #### HBA1C, BMP, LIPNF #### [facility] [address] [place], [place] [address] DUONG Observed: 11/25/2017 Status: COMPLETED Source: [place] 12:00 AM [facility] REPOSITORY Patient Outreach (INTMWH) JUDITH JONES ([id number]) 1955 F Date Time Provider Department 11/25/17 [facility] During your visit today, we recorded the following information about you: Allergies As of Date: 11/25/2017 Noted Allergy Reaction PRINIVIL (LISINOPRIL) 06/09/2008 3 - Cough Date Reviewed: 08/05/2017 Reviewed by: Елена ([facility]) Mara - Fully Assessed Visit Diagnosis:Medication management [Z79.899] Order(s):ALBUMIN/CREAT RATIO RND UR [SQUACR] Order #: [id number] FUTURE BASIC METABOLIC PNL [SQBMP] Order #: [id number] FUTURE LIPID PANEL, NONFASTING [SQLIPNF] Order #: [id number] FUTURE Prescriptions as of 11/25/2017 Sig: X TRAMADOL 50 MG TABLET Take 1 tablet by mouth twice * X TRAMADOL 50 MG TABLET Take 1 tablet by mouth twice * TRAZODONE 100 MG TABLET Take 1 tablet by mouth daily * ACYCLOVIR 5 % TOPICAL CREAM Apply 1 application to affect* ALBUTEROL SULFATE HFA 90 MCG/* Inhale 2 Puffs as instructed * DULOXETINE 60 MG CAPSULE,ALBERTO* Take 1 capsule by mouth once * MELOXICAM 15 MG TABLET Take 1 tablet by mouth once d* METFORMIN ER 500 MG TABLET,EX* Take 2 tablets by mouth twice* VALSARTAN 80 MG-HYDROCHLOROTH* Take 1 tablet by mouth once d* ATORVASTATIN 40 MG TABLET Take 40 mg by mouth once eliel* PANTOPRAZOLE 40 MG TABLET,DEL* Take 1 tablet by mouth daily * BLOOD GLUCOSE TEST STRIPS Test daily LANCETS Test daily, 250.02 Problem List As Of Date 11/25/2017 Noted Resolved Essential hypertension [I10] INVALID FOR* More... IBANEZ'S ESOPHAGUS [K22.70] INVALID FOR* More... DIABETES MELLITUS TYPE II UNCONTR UNCOMPL [E11.*INVALID FOR*07/22/2014 GENERAL OSTEOARTHROSIS [M15.9] INVALID FOR* DEPRESSIVE DISORDER NEC [F32.9] INVALID FOR* Pure hypercholesterolemia [E78.00] INVALID FOR* More... 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 DM2 (diabetes mellitus, type 2) (HCC) [E11.9] INVALID FOR* DDD (degenerative disc disease), thoracic [M51.*INVALID FOR* Cervicalgia [M54.2] INVALID FOR* DDD (degenerative disc disease), cervical [M50.*INVALID FOR* Hyperlipidemia [E78.5] INVALID FOR* Left-sided low back pain without sciatica [M54.*INVALID FOR*02/13/2016 Chronic left-sided low back pain with left-side*INVALID FOR* Osteoarthritis of spine with radiculopathy, lum*INVALID FOR* Encounter Status:Closed by SAKINA, PRODUSER on 12/28/17 ALLERGIES ALLERGIES DATE TYPE / CODE NAME / CODE REACTION SEVERITY SOURCE 03/04/2018 Drug lisinopril/[id number] Other Unknown Case Allergy/416 0658(RXNORM) [facility] [id number]([facility] ED CT) Repository 06/09/2008 DRUG LISINOPRIL COUGH [facility] INGREDI/419 [facility] 737335([facility] ED CT) ENCOUNTERS ENCOUNTERS ADMIT/DISCHARGE ACCOUNT ADMITTING ENCOUNTER LOCATION SOURCE NUMBER CLASS 10/08/2018 [id number] Ambulatory [facility] ing:MRI Repository 10/02/2018/10/02/20 [id number] Ambulatory [address] Repository 10/02/2018/10/05/20 [id number] Ambulatory [address] Repository 06/16/2018/06/17/20 [id number] Ambulatory [address] Repository 04/29/2018/04/29/20 [id number] Ambulatory BMSBuilding:W Case [facility] Repository 04/28/2018/04/29/20 [id number] [facility], Ambulatory [place] ing:PCURoom: Repository [id number]: 1 04/28/2018 [id number] [facility], Ambulatory BMSBuilding:Dayday Hernandez MS.Count includes the [facility] Repository 04/28/2018 [id number] [facility], Ambulatory BMSBuilding:Dayday Hernandez MS.Count includes the [facility] Repository 04/23/2018 [id number] Ambulatory [facility] ing:RAD Repository 03/24/2018 [id number] Ambulatory [facility] Repository 03/13/2018/03/13/20 [id number] Ambulatory [address] Repository 03/13/2018/03/16/20 [id number] Ambulatory [address] Repository 03/04/2018/03/04/20 [id number] Emergency [address] ing:ED Repository 12/11/2017/12/11/19 [id number] Ambulatory [address] Repository 12/09/2017/12/09/19 [id number] Ambulatory [address] Repository PAYERS PAYERS ENCOUNTER GUARANTOR PAYER SUBSCRIBER SOURCE 10/08/2018 ANGEL Mancuso Primary NOT GIVENUNK Case [id number] Insurance:SELF PAY [employer] Number: Effective Repository [id number]: (330) Date:2018-09-28 [phone] 04/29/2018 ANGEL Mancuso Primary JUDITH Case [id number] Insurance:SAHIL ALMEIDAB: [facility] Number: [id number] [id number] Repository [address]Suf: (120) Date:8732-04-95[phone] (HP) [address] [phone]: 04/29/2018 Secondary NOT GIVENUNK Case Insurance:SELF PAY [facility] Number: Effective Repository Date:2018-04-29 04/28/2018 ANGEL Mancuso Primary JUDITH [place] [id number] Insurance:SUMMA WATNATANDOB: [facility] Number: [id number], [place] [id number] Repository [address]Wxa: (330) Date:1775-57-83[phone] (HP) [address] [address]XD: 04/28/2018 Secondary NOT GIVENUNK Case Insurance:SELF PAY [facility] Number: Effective Repository Date:2018-04-28 04/28/2018 ANGEL Mancuso Primary JUDITH Case [id number] Insurance:[facility] Number: [id number], [place] [id number] Repository [address]Kaj: ([phone]) Date:9555-70-68[phone] (HP) [address] [address]XR: 04/28/2018 Secondary NOT GIVENUNK [place] Insurance:SELF PAY [facility] Number: Effective Repository Date:2018-04-28 04/28/2018 ANGEL Mancuso Primary JUDITH Case [id number] Insurance:[facility] Number: [id number], [place] [id number] Repository [address]Xwe: (330) Date:9494-91-01[phone] (HP) [address] [address]YX: 04/28/2018 Secondary NOT GIVENUNK Case Insurance:SELF PAY [facility] Number: Effective Repository Date:2018-04-28 04/23/2018 ANGEL Mancuso Primary JUDITH [place] [id number] Insurance:SUMMA WATJUDD: [facility] Number: [id number], [place] [id number] Repository [address]Szp: (330) Date:5767-08-37[phone] (HP) [address] [address]KP: 04/23/2018 Secondary NOT GIVENUNK [place] Insurance:SELF PAY [facility] Number: Effective Repository Date:2018-04-23 03/04/2018 ANGEL Mancuso Primary JUDITH Case [id number] [facility] Number: [id number], [place] [id number] Repository [address]Cns: (330) Date:0408-65-24[phone] (HP) [address] [address]WJ: 03/04/2018 Secondary NOT GIVENUNK Case Insurance:SELF PAY [facility] Number: Effective Repository Date:2018-03-04
== END ==
PROVIDERS: Family Provider Internal Medicine; PCP Internal Medicine
DX: G93.0 Cerebral cysts (principal)
CPT/HCPCS: 70553; A9585

== ENCOUNTER → 2019-04-08 | Outpatient (CLI) | payer OTHER, SELFPAY ==
--- NOTE | 2019-04-08 14:10 | BI_ITS ---
MAMMOGRAPHY - BILATERAL SCREENING REASON FOR EXAM: Female, 64 years old. Routine annual screening examination. PERTINENT HISTORY: Non-contributory. History of bilateral breast implants. TECHNIQUE: Digital bilateral breast dilan (3D mammographic acquisition) in the CC and MLO projections. 2-D mediolateral oblique (MLO) and craniocaudad (CC) views of both breasts were obtained. CAD: Full Field Digital Mammography with Computer Added Detection was performed. COMPARISON: No comparison mammograms available at this time. If any prior films become available, an addendum to this report can be generated. FINDINGS: Breast Composition: There are scattered areas of fibroglandular density. There are no dominant masses or suspicious calcifications. Rim calcification of the breast implants. The anterior margin of the right breast implant is irregular. Possible rupture should BE excluded. Correlation with MR is recommended for further evaluation. No other significant abnormalities are identified. BI/SCREEN MAMM (CAD) W/DILAN BILAT IMPRESSION: Irregularity of the anterior aspect of the right breast implant as described. Correlation with MRI is recommended for further evaluation. ASSESSMENT CATEGORY: BIRADS Category 0: Incomplete. Need additional imaging evaluation. A letter regarding these results will be sent to the patient by the facility within 30 days. Approximately 10% of breast cancers are not detected by mammography. A normal mammogram should not delay biopsy of a clinically suspicious abnormality. [id number] Electronically Signed: Jean Paul Diaz, at 15:56 EDT , Service support ,
== END | disposition home or self-care (01) ==
PROVIDERS: Family Provider Internal Medicine; PCP Internal Medicine; Referring Provider Obstetrics & Gynecology; Visit Provider Obstetrics & Gynecology
DX: Z12.31 Encounter for screening mammogram for malignant neoplasm of breast (principal)
CPT/HCPCS: 77063; 77067

== ENCOUNTER → 2019-04-29 | Outpatient (CLI) | payer SELFPAY ==
--- NOTE | 2019-04-29 13:32 | MRI_ITS ---
STUDY: BILATERAL BREAST MR WITHOUT AND WITH CONTRAST REASON FOR EXAM: Female, 64 years old. History of silicone breast implants in 1979. Right breast pain several years. Evaluate implant irregularity. TECHNIQUE: Multi-sequence multi-echo imaging of both breasts was performed with a dedicated breast coil. T1-weighted and T2-weighted images were performed before the administration of contrast. COMPARISON: Bilateral mammography dated April 08, 2019. FINDINGS: There is ossification adjacent to the implants bilaterally. There are intracapsular ruptures bilaterally. There is extracapsular rupture of the superior and anterior aspects of the right implant (sagittal series 6 images 10-16) corresponding to the abnormality seen on the mammogram. There are no enlarged or abnormal lymph nodes. There is no abnormality in the visualized regions of the chest or liver. MRI/BREAST W/O CONT BILAT IMPRESSION: Bilateral silicone implants with ossification adjacent to the periphery of the implants. Intracapsular ruptures bilaterally. Extracapsular rupture of the superior and anterior aspects of the right breast implant. CATEGORY: BIRADS Category 2: Benign. A letter regarding these results will be sent to the patient by the facility within 30 days. Electronically Signed: Norbert Rosales MD at 17:27 EDT , Service support ,
== END | disposition home or self-care (01) ==
PROVIDERS: Family Provider Internal Medicine; PCP Internal Medicine; Referring Provider Obstetrics & Gynecology; Visit Provider Obstetrics & Gynecology
DX: N64.4 Mastodynia (principal)
CPT/HCPCS: 77047

== ENCOUNTER → 2019-07-06 | Outpatient (CLI) | payer OTHER, SELFPAY ==
[2019-07-06 15:19] LABS: Vitamin D,25 Hydroxy 36.8 ng/mL (29.95-100.01)
== END | disposition home or self-care (01) ==
LOC: LAB 14:02
PROVIDERS: Family Provider Internal Medicine; PCP Internal Medicine; Referring Provider Nurse Practitioner Family; Visit Provider Nurse Practitioner Family
DX: F32.9 Major depressive disorder, single episode, unspecified (principal)
CPT/HCPCS: 36415; 82306

== ENCOUNTER → 2020-04-07 14:00 | Outpatient (CLI) | payer MEDICARE, BC, SELFPAY | PROVIDERS: PCP Internal Medicine; Visit Provider Internal Medicine Gastroenterology | DX: Z11.59 Encounter for screening for other viral diseases (principal) | CPT/HCPCS: 87635; G2023; U0003 ==

== ENCOUNTER → 2020-04-12 08:26 | Outpatient (CLI) | payer MEDICARE, BC, SELFPAY ==
--- NOTE | 2020-04-12 08:41 | RAD_ITS ---
STUDY: X-RAY - ESOPHAGUS (BARIUM SWALLOW) WITH FLUOROSCOPY REASON FOR EXAM: Female, 65 years old. DYSPHAGIA -- feels like food gets stuck mid throat x 1 year -- hx of hiatal hernia 15-20 years ago and Ibanez''s esophagus TECHNIQUE: 15 view(s) of the esophagus were obtained following swallowing of barium. FLUOROSCOPY TIME (if supplied): (0:36) minutes/seconds COMPARISON: None. FINDINGS: There is no demonstrated esophageal foreign body. Tertiary contractions of the distal esophagus. There is a small hiatal hernia of the fundus of the stomach. No evidence of gastroesophageal reflux. The patient ingested a 12 mm tablet of barium without any difficulty. There is atherosclerotic calcification of the aortic arch with tortuosity of the descending aorta. Normal visualized pulmonary parenchyma. There are diffuse degenerative changes of the visualized thoracic spine. RAD/Esophagus Dual Contrast IMPRESSION: Tertiary contractions of the distal esophagus. Electronically Signed: Jean Paul Diaz, at 15:11 EDT , Service support ,
== END ==
PROVIDERS: PCP Internal Medicine; Referring Provider Internal Medicine Gastroenterology; Visit Provider Internal Medicine Gastroenterology
DX: R13.10 Dysphagia, unspecified (principal)
CPT/HCPCS: 74221

== ENCOUNTER 2020-04-25 09:12 | Emergency (ER) | payer MEDICARE, BC, SELFPAY ==
[2020-04-25 09:13] VITALS: BP 132/100; PULSE 95; RESP 16; TEMP 36.3; O2SAT 97; BMI 29.2
--- NOTE | 2020-04-25 09:24 | ED.VIS.GEN ---
History of Present Illness Chief Complaint: Hyperglycemia Informant: Patient, Significant Other Narrative: Patient states that she was to have an EGD today and they checked her blood sugar and it was 434. She states that a canceled the EGD and told her to come to the emergency department. She has a history of diabetes and takes metformin 500 mg twice a day. She states that due to the recent COVID she has not had her blood sugar checked for several months. She does not remember her last hemoglobin A1c but states it is typically around 6. She notes for several months she is feeling increasingly fatigued and has been increasingly thirsty. The patient's significant other states that she does not adhere to a diabetic diet. Past Medical History - Allergies and Home Meds Allergies/Adverse Reactions: Allergies lisinopril Allergy (Verified 04/25/20 09:13) Other Primary Care Physician: Manda Howe MD [Primary Care Provider] - Surgical History: - - Silicon bilateral breast augmentation, hiatal hernia repair, appendectomy. Smoking Status: Never smoker - Family History Maternal Family History: Reports: Heart Disease Paternal Family History: Reports: Cancer, COPD, Diabetes, Hypertension Review of Systems General: Reports: Malaise. Denies: Chills, Fever, Sweats Eyes: Denies: Visual changes - bilaterally, Diplopia ENT: Denies: Rhinorrhea, Sore throat Cardiovascular: Denies: Chest pain, Palpitations Respiratory: Denies: Dyspnea, Cough, Dyspnea on exertion Gastrointestinal: Denies: Abdominal pain, Nausea, Vomiting, Diarrhea, Melena, Hematochezia Genitourinary: Denies: Dysuria, Hematuria, Frequency Musculoskeletal: Denies: Back pain, Extremity Pain Skin: Denies: Rash, Wounds Neurological: Denies: Headache, Weakness, Numbness Endocrine: Reports: Polyuria, Polydipsia Physical Exam Vital Signs/Narrative: Vital Signs Temp Pulse Resp BP Pulse Ox 04/25/20 09:13 97.3 F L 95 16 132/100 H 97 Inital Vital Signs reviewed: Yes General: Well nourished, Well developed, No Acute Distress Head: Normocephalic, Atraumatic Eyes: Perrl, EOMI ENT: Moist mucous membranes, No rhinorrhea Neck: Supple, Nontender Cardiovascular: Regular rate, Regular rhythm, No murmurs Respiratory: No distress, CTA bilaterally, Chest nontender Abdomen: Soft, Nontender, Nondistended, Normal bowel sounds Back: Nontender, Normal Inspection Extremities: Nontender, No edema Skin: Normal color, No rash Neurological: Alert, Oriented x3, Cranial nerves II-XII grossly intact, Normal Strength, Normal Sensation Psychological: Normal affect, Normal Mood Diagnostic/Tx/Re-eval Laboratory Last Values WBC 6.0 K/mm3 (4.4-11.0) 04/25/20 09:37 RBC 4.79 M/mm3 (4.2-5.4) 04/25/20 09:37 Hgb 14.0 g/dL (12.0-15.0) 04/25/20 09:37 Hct 41.9 % (37-47) 04/25/20 09:37 MCV 87.5 fL (81-99) 04/25/20 09:37 MCH 29.2 pg (27.0-32.0) 04/25/20 09:37 MCHC 33.4 g/dL (32-36) 04/25/20 09:37 RDW Std Deviation 40.6 fl (35.1-43.9) 04/25/20 09:37 RDW Coeff of Lisa 12.9 % (11.6-14.6) 04/25/20 09:37 Plt Count 238 K/mm3 (150-450) 04/25/20 09:37 MPV 11.4 fl (6.2-12.0) 04/25/20 09:37 Immature Gran % (Auto) 0.500 % (0.0-0.9) 04/25/20 09:37 Neut % (Auto) 58.8 % (47-70) 04/25/20 09:37 Lymph % (Auto) 27.5 % (19-41) 04/25/20 09:37 [place] % (Auto) 8.7 % (0-10) 04/25/20 09:37 Eos % (Auto) 3.7 % (0-5) 04/25/20 09:37 Baso % (Auto) 0.8 % (0-1) 04/25/20 09:37 Absolute Neuts (auto) 3.5 X10^3/uL (2.0-7.7) 04/25/20 09:37 Absolute Lymphs (auto) 1.65 X10^3/uL (0.83-4.51) 04/25/20 09:37 Nucleated RBC % 0 % (0-5) 04/25/20 09:37 Sodium 134 mmol/L (136-145) L 04/25/20 09:37 Potassium 3.2 mmol/L (3.5-5.1) L 04/25/20 09:37 Chloride 99 mmol/L (98-107) 04/25/20 09:37 Carbon Dioxide 27.0 mmol/L (21.0-32.0) 04/25/20 09:37 Anion Gap 8 (5-15) 04/25/20 09:37 BUN 16 mg/dL (7-18) 04/25/20 09:37 Creatinine 0.99 mg/dL (0.55-1.02) 04/25/20 09:37 Estim Creat Clear Calc 48.92 ml/min 04/25/20 09:37 Est GFR (MDRD) Af Amer 72 mL/min (>60) 04/25/20 09:37 Est GFR (MDRD) Non-Af 60 mL/min (>60) 04/25/20 09:37 BUN/Creatinine Ratio 16.1 RATIO (10-20) 04/25/20 09:37 Glucose 441 mg/dL (74-106) H 04/25/20 09:37 Hemoglobin A1c 12.7 % (3.8-5.6) H 04/25/20 09:37 Calcium 9.4 mg/dL (8.5-10.1) 04/25/20 09:37 Total Bilirubin 0.80 mg/dL (0.20-1.00) 04/25/20 09:37 AST 18 U/L (15-37) 04/25/20 09:37 ALT 29 U/L (13-56) 04/25/20 09:37 Alkaline Phosphatase 167 U/L (45-117) H 04/25/20 09:37 Total Protein 7.0 g/dL (6.4-8.2) 04/25/20 09:37 Albumin 3.6 g/dL (3.2-5.0) 04/25/20 09:37 Globulin 3.4 g/dL (2.2-4.2) 04/25/20 09:37 Albumin/Globulin Ratio 1.1 RATIO (0.9-2.4) 04/25/20 09:37 Urine Color Yellow (Yellow) 04/25/20 10:20 Urine Clarity Sl. Cloudy (Clear) 04/25/20 10:20 Urine pH 5.0 (5.0 - 8.0) 04/25/20 10:20 Ur Specific Amelia 1.015 (1.002-1.030) 04/25/20 10:20 Urine Protein 15 mg/dl (Negative) H 04/25/20 10:20 Urine Glucose (UA) 1000 mg/dl (Normal) H 04/25/20 10:20 Urine Ketones 150 mg/dl (Negative) H 04/25/20 10:20 Urine Occult Blood Negative /ul (Negative) 04/25/20 10:20 Urine Nitrite Negative (Negative) 04/25/20 10:20 Urine Bilirubin Negative mg/dL (Negative) 04/25/20 10:20 Urine Urobilinogen Normal mg/dl (Normal) 04/25/20 10:20 Ur Leukocyte Esterase 25 /ul (Negative) H 04/25/20 10:20 Urine RBC 0 SEEN /hpf (0-5) 04/25/20 10:20 Urine WBC 0-5 SEEN /hpf (0-5) 04/25/20 10:20 Ur Squamous Epith Cells 0-5 SEEN /hpf (5-10) 04/25/20 10:20 Urine Bacteria 0 SEEN /hpf (None Seen) 04/25/20 10:20 Urine Mucus 0 SEEN /hpf (<or=2+) 04/25/20 10:20 - Medical Decision Making C is 12.7. I spoke with her primary care physician who notes that she has been having hemoglobin A1c's between 6 and 7. The last one was about 9 months ago. To something has significantly changed in the past 9 months. We are going to add in glipizide 5 mg twice a day off the recommendation of her doctor. She will need to follow-up with them and adhere to a diabetic diet. ED Disposition - Plan for ED Patient: Disposition: Home or Assisted Living Diagnosis: Hyperglycemia, Diabetes type 2, uncontrolled Instructions: ED DIET Diabetic, ED Diabetic Hyperglycemia Prescriptions: Glipizide 5 mg PO BID #60 tab Transmission Status: Pending to [id number] Referrals: Manda Howe MD [Primary Care Provider] - As soon as possible
[2020-04-25 09:47] LABS: Absolute Lymphocyte Count 1.65 X10^3/uL (0.83-4.51); Absolute Neutrophil Count 3.5 X10^3/uL (2.0-7.7); Basophil# 0.05 X10^3/uL; Basophil% 0.8 % (0-1); Eosinophil# 0.22 X10^3/uL; Eosinophils% 3.7 % (0-5); Hematocrit 41.9 % (37-47); Lymphocyte # 1.65 X10^3/ul (4.0); Lymphocyte % 27.5 % (19-41); Mean Corp Hgb Conc 33.4 g/dL (32-36); Mean Corpuscular Hgb 29.2 pg (27.0-32.0); Mean Corpuscular Volume 87.5 fL (81-99); Mean Platelet Vol. 11.4 fl (6.2-12.0); Monocyte# 0.52 X10^3/uL; Monocyte% 8.7 % (0-10); NRBC Flagged by Analyzer 0 % (0-5); Neutrophil # 3.52 X10^3/uL (2.7-7.7); Neutrophil % 58.8 % (47-70); Platelet Count 238 K/mm3 (150-450); RBC Distribution Width CV 12.9 % (11.6-14.6); RBC Distribution Width SD 40.6 fl (35.1-43.9); Red Blood Count 4.79 M/mm3 (4.2-5.4)
[2020-04-25 10:07] LABS: ALB/GLOB Ratio 1.1 RATIO (0.9-2.4); AST(SGOT) 18 U/L (15-37); Alanine Aminotransfer ALT/SGPT 29 U/L (13-56); Albumin, Serum 3.6 g/dL (3.2-5.0); Alkaline Phosphatase 167 U/L (45-117); Anion Gap 8 (5-15); BUN 16 mg/dL (7-18); BUN/Creat Ratio 16.1 RATIO (10-20); Calcium,Total 9.4 mg/dL (8.5-10.1); Chloride 99 mmol/L (98-107); Creatinine, Serum 0.99 mg/dL (0.55-1.02); EST Glomerular Filtration Rate 60 mL/min (>60); Est Glom Filt Rate - Afr Amer 72 mL/min (>60); Estimated Creatinine Clearance 48.92 ml/min; Globulin 3.4 g/dL (2.2-4.2); Glucose 441 mg/dL (74-106); Potassium 3.2 mmol/L (3.5-5.1); Sodium Level 134 mmol/L (136-145)
[2020-04-25 10:09] LABS: Hemoglobin A1c 12.7 % (3.8-5.6)
[2020-04-25 10:26] LABS: Bacteria 0 SEEN /hpf (None Seen); Mucous, Urine 0 SEEN /hpf (<or=2+); Red Blood Cells-Urine 0 SEEN /hpf (0-5)
[2020-04-25 10:28] LABS: Color, Urine Yellow (Yellow); Glucose, Dipstick 1000 mg/dl (Normal); Leukocyte Esterase-Dipstick 25 /ul (Negative); Nitrite-Dipstick Negative (Negative); Occult Blood-Urine Negative /ul (Negative); Protein-Dipstick 15 mg/dl (Negative); Specific Gravity, Urine 1.015 (1.002-1.030); Urine Bilirubin Dipstick Negative (Negative); Urine Clarity Sl. Cloudy (Clear); Urine Urobilinogen Normal (Normal)
[2020-04-25 10:31] LABS: Ketone-Dipstick 150 mg/dl (Negative)
[2020-04-25 10:34] LABS: Squamous Epithelial Cells - UA 0-5 SEEN /hpf (5-10); White Blood Cells 0-5 SEEN /hpf (0-5)
[2020-04-25 10:52] VITALS: BP 147/76; PULSE 84; RESP 15; O2SAT 18
== END 2020-04-25 10:56 | disposition home or self-care (01) ==
PROVIDERS: Emergency Provider Emergency Medicine; PCP Internal Medicine
DX: E11.65 Type 2 diabetes mellitus with hyperglycemia (principal); Z79.84 Long term (current) use of oral hypoglycemic drugs; Z91.19 Patient's noncompliance with other medical treatment and regimen
CPT/HCPCS: 80053; 81001; 83036; 85025; 99283; A4216

== ENCOUNTER → 2020-11-08 17:31 | Outpatient (CLI) | payer MEDICARE, BC, SELFPAY | PROVIDERS: PCP Internal Medicine; Referring Provider Internal Medicine Gastroenterology; Visit Provider Internal Medicine Gastroenterology | DX: Z11.59 Encounter for screening for other viral diseases (principal) | CPT/HCPCS: 87635; C9803; U0003 ==

== ENCOUNTER 2020-11-30 18:09 | Emergency (ER) | payer MEDICARE, BC, SELFPAY ==
[2020-11-30 18:10] VITALS: BP 134/80; PULSE 70; PULSE 72; RESP 16; TEMP 36.2; O2SAT 96; O2SAT 97; BMI 28.3
--- NOTE | 2020-11-30 18:43 | EKG12_ITS ---
Test Reason : BACK PAIN Blood Pressure : / mmHG Vent. Rate : 064 BPM Atrial Rate : 064 BPM P-R Int : 150 ms QRS Dur : 080 ms QT Int : 384 ms P-R-T Axes : 032 -14 005 degrees QTc Int : 396 ms Normal sinus rhythm Low voltage QRS Borderline ECG Confirmed by PRATEEK TIDWELL, SHILOH ([id number]), fashion editor QAMAR DAMON ([id number]) on 12/05/2020 10:43:41 AM Referred By: SHANELL Confirmed By:SHILOH CHANDRA MD
--- NOTE | 2020-11-30 18:43 | RAD_ITS ---
STUDY: X-RAY CHEST REASON FOR EXAM: Female, 65 years old. Left upper mid back pain x1 day. TECHNIQUE: Single AP portable view of the chest. COMPARISON: November 18, 2016. FINDINGS: Stable bilateral breast implants. The lungs are clear and expanded. There is no demonstrated pleural abnormality. Normal size heart. Normal mediastinum and leatha. Stable visualized mediastinal and osseous structures. Surgical clips reidentified near the GE junction. There is no demonstrated abnormality of the visualized soft tissue structures of the upper abdomen. RAD/Chest 1 View (Portable) IMPRESSION: No visualized acute process. Electronically Signed: Alex Ho MD at 20:01 EST , Service support ,
[2020-11-30] MEDS: 0.9% Normal Saline 1,000 ML 1000 ML IV (19:02)
[2020-11-30 19:04] LABS: Absolute Lymphocyte Count 2.21 X10^3/uL (0.83-4.51); Absolute Neutrophil Count 4.5 X10^3/uL (2.0-7.7); Basophil# 0.06 X10^3/uL; Basophil% 0.8 % (0-1); Eosinophils% 3.8 % (0-5); Hematocrit 36.4 % (37-47); Hemoglobin 11.9 g/dL (12.0-15.0); Lymphocyte # 2.21 X10^3/ul (4.0); Lymphocyte % 28.2 % (19-41); Mean Corp Hgb Conc 32.7 g/dL (32-36); Mean Corpuscular Hgb 29.9 pg (27.0-32.0); Mean Corpuscular Volume 91.5 fL (81-99); Mean Platelet Vol. 10.7 fl (6.2-12.0); Monocyte# 0.71 X10^3/uL; Monocyte% 9.1 % (0-10); NRBC Flagged by Analyzer 0 % (0-5); Neutrophil # 4.53 X10^3/uL (2.7-7.7); Neutrophil % 57.7 % (47-70); Platelet Count 257 K/mm3 (150-450); RBC Distribution Width CV 13.2 % (11.6-14.6); RBC Distribution Width SD 44.6 fl (35.1-43.9); Red Blood Count 3.98 M/mm3 (4.2-5.4); White Blood Count 7.8 K/mm3 (4.4-11.0)
[2020-11-30] MEDS: Ondansetron 4 MG/2 ML Vial IV (19:04)
[2020-11-30] MEDS: Morphine 4 MG/ML Syringe IV (19:04)
[2020-11-30 19:22] LABS: ALB/GLOB Ratio 1.1 RATIO (0.9-2.4); AST(SGOT) 11 U/L (15-37); Alanine Aminotransfer ALT/SGPT 19 U/L (13-56); Albumin, Serum 3.6 g/dL (3.2-5.0); Alkaline Phosphatase 86 U/L (45-117); Anion Gap 5 (5-15); BUN 17 mg/dL (7-18); BUN/Creat Ratio 17.5 RATIO (10-20); Calcium,Total 9.1 mg/dL (8.5-10.1); Chloride 107 mmol/L (98-107); Creatinine, Serum 0.97 mg/dL (0.55-1.02); EST Glomerular Filtration Rate 61 mL/min (>60); Est Glom Filt Rate - Afr Amer 74 mL/min (>60); Estimated Creatinine Clearance 47.83 ml/min; Globulin 3.3 g/dL (2.2-4.2); Glucose 121 mg/dL (74-106); Lipase 192 U/L (73-393); Potassium 3.9 mmol/L (3.5-5.1); Protein, Total 6.9 g/dL (6.4-8.2); Sodium Level 140 mmol/L (136-145)
[2020-11-30 19:25] LABS: D-Dimer Quantitative (DVT/PE) 1.03 FEU/ug/m (0.27-0.49)
--- NOTE | 2020-11-30 19:25 | CT_ITS ---
STUDY: CTA CHEST REASON FOR EXAM: Female, 65 years old. Left upper mid back pain and left flank pain x one day. Hx of diabetes, HTN, TIA, breast implants RADIATION DOSAGE (If Supplied By Facility): CTDIvol = ( 10.72 ) mGy, DLP = ( 1044.49 ) mGycm TECHNIQUE: The examination was performed with the intravenous administration of IV 100mL Isovue-370. Post-processing of the angiographic images was performed, with multiplanar reformation and 3D reconstruction. Individualized dose optimization techniques were used for this CT. COMPARISON: Chest x-ray dated November 30, 2019. CTA of the chest dated November 18, 2016. CT of abdomen and pelvis dated November 30, 2020 FINDINGS: Peripherally calcified breast implants noted. Normal enhancement of the main pulmonary artery and right and left pulmonary arteries. Normal enhancement of the bilateral peripheral pulmonary arteries. There is no demonstrated pulmonary embolism. There is atherosclerotic calcification of the aortic arch with tortuosity. There is no demonstrated aortic dissection. Normal heart and pericardium. Normal mediastinum. Normal hilar regions. Normal visualized trachea and bronchi. The lungs are well expanded. Normal pulmonary parenchyma. No consolidation or pulmonary edema or pleural effusion is present. No nodules are seen. Normal pleura. Normal chest wall structures. There are degenerative changes of thoracic spine. Abdominal findings are on a separate report. CT/CTA Chest W/WO Contrast IMPRESSION: 1. No demonstrated pulmonary embolism or arterial dissection. 2. No consolidation or pulmonary edema or pleural effusion is present. No nodules are seen. Electronically Signed: Alex Ho MD at 20:38 EST , Service support ,
--- NOTE | 2020-11-30 19:25 | CT_ITS ---
STUDY: CT ABDOMEN AND PELVIS WITH CONTRAST REASON FOR EXAM: Female, 65 years old. Left upper mid back pain and left flank pain x one day. Hx of diabetes, HTN, TIA, breast implants RADIATION DOSAGE (If Supplied By Facility): CTDIvol = ( 10.72 ) mGy, DLP = ( 1044.49 ) mGycm TECHNIQUE: Transaxial images were obtained from the dome of the diaphragm to the symphysis pubis without oral contrast. IV 100mL Isovue-370 was administered. Sagittal and coronal images were reconstructed. Individualized dose optimization techniques were used for this CT. COMPARISON: CTA of the chest dated November 18, 2016 FINDINGS: Peripherally calcified breast implants noted. The visualized lung bases are unremarkable. The visualized portions of the heart are within normal limits. Several small calcifications of the right lobe the liver reidentified. The liver is otherwise normal. Normal gallbladder and extrahepatic biliary system. Calcified granulomas of the spleen reidentified. Normal pancreas. Normal bilateral adrenal glands. Normal right kidney. Normal left kidney. There is a small hiatal hernia. Stable gastric bypass changes. Normal small intestine. Normal colon. There are surgical clips in the region of the appendix consistent with a prior appendectomy. There is diffuse atherosclerotic calcification of the abdominal aorta, without a demonstrated aneurysm. Normal inferior vena cava. Normal retroperitoneum. Normal urinary bladder. Unremarkable uterus and adnexa. Normal abdominal wall. There are diffuse degenerative changes of the visualized lumbar spine. CT/Abdomen/Pelvis W IV Cont ONLY IMPRESSION: 1. No demonstrated acute process of the abdomen and pelvis. 2. Stable gastric bypass changes. Small hiatal hernia. Electronically Signed: Alex Ho MD at 20:28 EST , Service support ,
[2020-11-30 19:27] LABS: Bacteria 0 SEEN /hpf (None Seen); Mucous, Urine 0 SEEN /hpf (<or=2+); Red Blood Cells-Urine 0 SEEN /hpf (0-5); White Blood Cells 0 SEEN /hpf (0-5)
[2020-11-30 19:28] LABS: Color, Urine Yellow (Yellow); Glucose, Dipstick Normal (Normal); Ketone-Dipstick Negative (Negative); Leukocyte Esterase-Dipstick 25 /ul (Negative); Nitrite-Dipstick Negative (Negative); Occult Blood-Urine Negative /ul (Negative); Protein-Dipstick Negative (Negative); Specific Gravity, Urine 1.015 (1.002-1.030); Urine Bilirubin Dipstick Negative (Negative); Urine Clarity Sl. Cloudy (Clear); Urine Urobilinogen Normal (Normal)
[2020-11-30 19:40] LABS: Squamous Epithelial Cells - UA 0-5 SEEN /hpf (5-10)
--- NOTE | 2020-11-30 20:11 | ED.VISSUMM ---
- ER Visit Summary Date of Service: 11/30/20 Chief Complaint: Upper back pain History of Present Illness: The patient is a [address] Rebolledo. She reports that she has left upper back pain that began today. She continuous aching pain is 10 of 10 severity. Is worsened by walking, twisting, or turning. Relieved by a little bit by a hot bath. She denies any trauma. No fall, MVA, or change in activity. Patient denies any abdominal pain. No nausea, vomiting, or diarrhea. No chest pain or shortness of breath. No cough. No fever or chills. No dysuria or frequency. Physical Examination: Vitals: Stable. Afebrile. General: Well-nourished and well-developed. Head: Normocephalic atraumatic. Neck: Supple, no lymphadenopathy. No JVD. Nontender. Cardiovascular: Regular rate and rhythm. No murmurs. Respiratory: No respiratory distress. Clear to auscultation bilaterally. Abdominal: Soft, nontender, nondistended, normal bowel sounds. No guarding, rebound, or peritoneal signs. Back: Nontender. No CVA pain with percussion. No vertebral or paraspinous muscle tenderness. No rash to suggest shingles. Extremities: Nontender, no edema. Skin: Normal color, no rash. Neurologic: Alert and oriented ?3. Cranial nerves II through XII are intact. Normal strength and sensation. Psych: Normal affect. Test Results: EKG is sinus at [address] changes. Troponin is negative. D-dimer is 1.03. UA shows leukocytes. LFTs show an AST of 11. Lipase is normal. Chem-7 shows a glucose 121. CBC shows an H&H 11.9 and 36.4. Clinical Impression(s) from Imaging Studies Chest X-Ray 11/30/20 18:43 IMPRESSION: No visualized acute process. Electronically Signed: Alex Ho MD at 20:01 EST , Service support , Abdomen/Pelvis CT 11/30/20 19:25 IMPRESSION: 1. No demonstrated acute process of the abdomen and pelvis. 2. Stable gastric bypass changes. Small hiatal hernia. Electronically Signed: Alex Ho MD at 20:28 EST , Service support , Chest CTA 11/30/20 19:25 IMPRESSION: 1. No demonstrated pulmonary embolism or arterial dissection. 2. No consolidation or pulmonary edema or pleural effusion is present. No nodules are seen. Electronically Signed: Alex Ho MD at 20:38 EST , Service support , Emergency Department Course and Treatment: Patient had an IV placed. She was given morphine and Zofran IV. She is resting more comfortably. Treatment Plan: At this time I do not have an explanation for the patient's pain. She will be discharged with prescriptions for [place] and Colace. Instructed to follow-up with her primary care physician in 3 to 5 days if not improving. Return to the emergency department for any worsening symptoms. Disposition: To home in improved and stable condition. Impression: 1. Upper back pain, uncertain cause. This note was generated with [employer] dictation software. It may contain incorrect words, spelling, and punctuation that were not noted in review of the chart prior to signing ED Disposition - Plan for ED Patient: Instructions: ED Back Pain (Acute or Chronic) Prescriptions: Docusate Sodium [Colace] 100 mg PO DAILY #20 capsule Hydrocodone Bitart/Apap 5-325 [[place] 5MG-325MG] 1 tablet PO Q4H PRN PRN 2 Days #10 tablet PRN Reason: Pain Referrals: Manda Howe MD [Primary Care Provider] - 3-5 Days if not improving
[2020-11-30 21:05] VITALS: BP 128/74; PULSE 71; RESP 16; O2SAT 97
== END 2020-11-30 21:06 | disposition home or self-care (01) ==
LOC: ED 19:19
PROVIDERS: Emergency Provider Emergency Medicine; PCP Internal Medicine
DX: M54.9 Dorsalgia, unspecified (principal); I10 Essential (primary) hypertension; E11.9 Type 2 diabetes mellitus without complications; E78.00 Pure hypercholesterolemia, unspecified; Z79.82 Long term (current) use of aspirin; Z79.84 Long term (current) use of oral hypoglycemic drugs; Z79.899 Other long term (current) drug therapy
CPT/HCPCS: 71045; 71275; 74177; 80053; 81001; 83690; 84484; 85025; 85379; 93005; 96361; 96374; 96375; 99284; J7030; J7040; Q9967; A4216; J2405

== ENCOUNTER → 2020-12-06 | Outpatient (CLI) | payer MEDICARE, BC, SELFPAY ==
[2020-11-30 18:10] VITALS: BMI 28.3
== END | disposition home or self-care (01) ==
LOC: LABSPEC 17:37
PROVIDERS: PCP Internal Medicine; Visit Provider Internal Medicine Gastroenterology
DX: Z11.59 Encounter for screening for other viral diseases (principal)
CPT/HCPCS: 87635; C9803; U0005; U0003

== ENCOUNTER → 2022-04-10 | Outpatient (CLI) | payer MEDICARE, BC, SELFPAY ==
--- NOTE | 2022-04-10 16:26 | MRI_ITS ---
EXAM: MR THORACIC SPINE WITHOUT INTRAVENOUS CONTRAST CLINICAL INDICATION: SPONDYLOSIS, THORACIC SPINE PAIN TECHNIQUE: Multiplanar and multisequence MR images of the thoracic spine without intravenous contrast. Magnetic field strength 1.5 T. This report was created using Quartzy report iSoftStone technology. COMPARISON: None. FINDINGS: VERTEBRAE: Mild multilevel spondylitic changes in the mid and lower thoracic spine. Mild exaggeration of the normal thoracic kyphosis. No fracture. No scoliosis. DISCS/SPINAL CANAL/NEURAL FORAMINA: Unremarkable. Normal disc height and morphology. Normal spinal canal and neuroforamina. SPINAL CORD: Unremarkable. Normal in signal and morphology. Normal conus medullaris. SOFT TISSUES: Unremarkable. MRI/Spine Thoracic (Routine) IMPRESSION: Mild multilevel spondylitic changes in the mid and lower thoracic spine. No acute abnormality identified. Electronically Signed: Davon Pham MD at 2:25 EDT ,
== END | disposition home or self-care (01) ==
LOC: MRI 16:14
PROVIDERS: PCP Internal Medicine; Visit Provider Orthopaedic Surgery
DX: M47.814 Spondylosis without myelopathy or radiculopathy, thoracic region (principal); M51.34 Other intervertebral disc degeneration, thoracic region
CPT/HCPCS: 72146

== ENCOUNTER 2023-09-24 20:04 | Emergency (ER) | payer MEDICARE, BC, SELFPAY ==
[2023-09-24 20:05] VITALS: BP 132/79; PULSE 75; RESP 15; TEMP 37.1; O2SAT 100; BMI 24.9
--- NOTE | 2023-09-24 22:03 | CT_ITS ---
INDICATION: trauma EXAMINATION: CT BRAIN - CT Head or Brain W/O Contrast Injection TECHNIQUE: Multiple axial images were obtained of the head with sagittal and coronal reconstructed images. Individualized dose optimization techniques were used for this CT. IV contrast dosage and agent: None. COMPARISON: 10/08/2018 MRI and 04/28/2018 CT. FINDINGS: BRAIN PARENCHYMA: No evidence of an acute infarct or intracranial hemorrhage. Stable right temporal lobe arachnoid cyst. Stable chronic left thalamic infarct. White matter changes consistent with mild chronic microvascular disease. CSF SPACES: The ventricles, sulci and subarachnoid cisterns are appropriate for age. CALVARIUM, SKULL BASE, PARANASAL SINUSES AND MASTOID AIR CELLS: No fracture. Mastoid air cells are clear. Visualized paranasal sinuses are unremarkable. ORBITS: The globes, extraocular muscles, optic nerves and retrobulbar fat are unremarkable. CT/Brain/Head without Contrast IMPRESSION: No fracture or acute intracranial abnormality. Electronically Signed: Cresencio Cordoba DO at 22:44 EST ,
--- NOTE | 2023-09-24 22:10 | EX.ED.DYSGE1 ---
HPI History of Present Illness Chief Complaint: Head Injury Informant: patient Onset/Context/Timing Onset: Days Narrative Narrative: Patient presents secondary to continued head pain after a fall on September 18. She states she lost her balance and fell backwards striking the back of her head against the brick of her house. There was no loss of consciousness. She has some slight blurred vision and some intermittent nausea. She continues to have headache and sensitivity over the posterior skull. She is not on anticoagulants. [facility] Medical History Acute upper respiratory infection Arachnoid cyst Barretts esophagus CVA (cerebral vascular accident) Diabetes mellitus, type II Essential hypertension TIA (transient ischemic attack) Home Medications duloxetine 60 mg capsule,delayed release 60 mg PO DAILY MENTAL HEALTH 06/30/14 [History Last Taken 04/25/20] trazodone 100 mg tablet 100 mg PO QHS 04/28/18 [History Last Taken 04/24/20] semaglutide 0.25 mg or 0.5 mg (2 mg/1.5 mL) subcutaneous pen injector 0.25 mg subcut QWEEK 01/17/22 [History Last Taken Unknown] tramadol 50 mg tablet 50 mg PO DAILY PRN pain 01/17/22 [History Last Taken Unknown] bupropion HCl 75 mg tablet 75 mg PO LUNCH 09/24/23 [History Last Taken Unknown] pantoprazole 40 mg tablet,delayed release 40 mg PO DAILY 09/24/23 [History Last Taken Unknown] Allergy/AdvReac Type Severity Reaction Status Date / Time lisinopril Allergy Other Verified 09/24/23 20:09 Family History Father Hypertension Diabetes Emphysema lung Cancer Lung Mother Ischemic heart disease Surgical History History of appendectomy History of repair of hiatal hernia Hx of breast implants, bilateral Social History Smoking Status: Never smoker alcohol intake: current details: Socially substance use type: does not use ROS ROS ED Constitutional Constitutional ED: Denies chills or fever(s) Eyes Eyes: Reports change in vision; Denies discharge from eye(s) ENT ENT ED: Denies discharge from eye(s), rhinorrhea or sore throat Cardiovascular Cardiovascular: Denies chest pain or palpitations Respiratory/Chest Respiratory/Chest: Denies cough or dyspnea Gastrointestinal Gastrointestinal: Reports nausea; Denies abdominal pain, diarrhea or vomiting Genitourinary Genitourinary ED: Denies dysuria Musculoskeletal Musculoskeletal: Denies back pain or extremity pain Integumentary Denies Abrasions or rash Neurologic Neurologic: Reports headache(s); Denies weakness Psychiatric Psychiatric: Denies anxiety or depression Allergic/Immunologic Allergic/Immunologic ED: Denies lip swelling or urticaria EXAM Physical Exam Const Vital Signs: 09/24/23 20:05 09/24/23 21:09 Temperature 98.7 F Temperature Source Temporal Pulse Rate 75 Respiratory Rate 15 Respiratory Effort Normal Non-Labored Respiratory Depth Normal Respiratory Pattern Normal Blood Pressure 132/79 H Blood Pressure Mean 96 Pulse Ox 100 Oxygen Delivery Method Room Air Positive well nourished and well developed General Appearance ED: well developed HEENT Reports normocephalic HEENT Narrative: Mild tenderness over the posterior parietal scalp. No lacerations noted. Eyes PERRL and EOMs intact bilaterally Neck supple Chest Wall inspection of chest normal and palpation of chest normal Resp normal respiratory effort and clear to auscultation bilaterally Cardio regular rate and regular rhythm GI non-tender Palpation: soft Back/Spine Back/Spine Narrative: No C-spine tenderness. Extremity normal to inspection Neuro oriented x3 and no sensory deficits noted Sensorium / Orientation: alert Motor Exam: strength 5/5 throughout Psych mental status grossly normal Skin no rashes or lesions noted MDM MDM MDM Narrative Medical decision making narrative: Patient sent for CT scan of the head to rule out bleed, fracture, edema. CT scan reveals no acute findings. Patient advised that concussion symptoms can persist for up to 6 weeks after head injury. Information provided and return instructions given. Patient comfortable with the plan. Radiography Diagnostic Testing: Clinical Impression(s) from Imaging Studies Brain CT 09/24/23 22:03 IMPRESSION: No fracture or acute intracranial abnormality. Electronically Signed: Cresencio Cordoba DO at 22:44 EST Reading Location ID and State: [facility] / [place] Tel , Service support , Discharge Plan Triage Chief Complaint: Head Injury ED Provider: Tanya Pena Dx/Rx/DC Orders Clinical Impression: Concussion Instructions: ED Concussion Prescriptions: No Action tramadol 50 mg tablet 50 mg PO DAILY PRN (Reason: pain) semaglutide 0.25 mg or 0.5 mg(2 mg/1.5 mL) pen injector 0.25 mg subcut QWEEK Rx Instructions: for 4 doses duloxetine 60 MG capsule 60 mg PO DAILY Patient Comments: anti-depressant trazodone 100 MG tablet 100 mg PO QHS bupropion HCl 75 mg tablet 75 mg PO LUNCH pantoprazole 40 mg tablet,delayed release (DR/EC) 40 mg PO DAILY Primary Care Provider: Manda Howe Referrals: Manda Howe MD [Primary Care Provider] - 1-2 Weeks Disposition Disposition: Home, Self Care
== END 2023-09-24 22:57 | disposition home or self-care (01) ==
PROVIDERS: Emergency Provider Emergency Medicine; PCP Internal Medicine; Visit Provider Emergency Medicine
DX: S06.0X0A Concussion without loss of consciousness, initial encounter (principal); E11.9 Type 2 diabetes mellitus without complications; I10 Essential (primary) hypertension; W19.XXXA Unspecified fall, initial encounter; Z86.73 Personal history of transient ischemic attack (TIA), and cerebral infarction without residual deficits; Z79.85 Long-term (current) use of injectable non-insulin antidiabetic drugs; Z90.49 Acquired absence of other specified parts of digestive tract
CPT/HCPCS: 70450; 99282

== ENCOUNTER → 2024-10-01 | Outpatient (CLI) | payer MEDICARE, BC, SELFPAY ==
--- NOTE | 2024-10-01 14:37 | BI_ITS ---
MAMMOGRAPHY - BILATERAL SCREENING REASON FOR EXAM: Female, 69 years old. Routine annual screening examination. PERTINENT HISTORY: Aunt with breast cancer. Bilateral breast implants. TECHNIQUE: Digital bilateral breast dilan (3D mammographic acquisition) in the CC and MLO projections. 2-D mediolateral oblique (MLO) and craniocaudad (CC) views of both breasts were obtained. CAD: Full Field Digital Mammography with Computer Added Detection was performed. COMPARISON: Comparison is made with prior study dated April 08, 2019. FINDINGS: Breast Composition: The breasts are heterogeneously dense, which may obscure small masses. There are no dominant masses or suspicious calcifications. Deformity of the bilateral breast implants with dense rim-like calcification. No other significant abnormalities are identified. BI/SCRN MAMM (CAD)W/DILAN BILAT IMPRESSION: Deformity of the bilateral breast implants with dense peripheral rim like calcifications. Yearly follow-up mammogram recommended. (A) ASSESSMENT CATEGORY: BIRADS Category 2: Benign. A letter regarding these results will be sent to the patient by the facility within 30 days. Approximately 10% of breast cancers are not detected by mammography. A normal mammogram should not delay biopsy of a clinically suspicious abnormality. [id number] Electronically Signed: Jean Paul Diaz MD at 15:24 EST ,
== END | disposition home or self-care (01) ==
PROVIDERS: PCP Internal Medicine; Referring Provider Plastic Surgery; Visit Provider Plastic Surgery
DX: Z12.31 Encounter for screening mammogram for malignant neoplasm of breast (principal); Z80.3 Family history of malignant neoplasm of breast
CPT/HCPCS: 77063; 77067

== ENCOUNTER → 2024-10-20 | Outpatient (CLI) | payer MEDICARE, BC, SELFPAY ==
--- NOTE | 2024-10-20 12:38 | MRI_ITS ---
STUDY: BILATERAL BREAST MR WITHOUT AND WITH CONTRAST REASON FOR EXAM: Female, 69 years old. Breast pain implants with possible rupture. TECHNIQUE: Multi-sequence multi-echo imaging of both breasts was performed with a dedicated breast coil. Multiplanar and multisequence images were obtained without contrast.. COMPARISON: Comparison breast MR dated November 29, 2018 and bilateral mammograms dated April 08, 2019 and October 01, 2024 FINDINGS: Bilateral intracapsular ruptures are similar to what was present on the prior MRI study dated March 2019. Extracapsular rupture of the superior and posterior aspect, the anterior and medial and anterior and lateral aspect of the right implant are also stable. There are no enlarged or abnormal lymph nodes. There is no abnormality in the visualized regions of the chest or liver. MRI/MRI BREAST W/O CONT BILAT IMPRESSION: Bilateral intracapsular implant rupture, relatively unchanged. Right extracapsular implant rupture also unchanged. CATEGORY: BIRADS Category 2: Benign. A letter regarding these results will be sent to the patient by the facility within 30 days. Electronically Signed: Norbert Rosales MD at 7:25 EST ,
== END | disposition home or self-care (01) ==
LOC: MRI 12:26
PROVIDERS: PCP Internal Medicine; Referring Provider Plastic Surgery; Visit Provider Plastic Surgery
DX: N64.4 Mastodynia (principal); T85.44XA Capsular contracture of breast implant, initial encounter
CPT/HCPCS: 77047

== ENCOUNTER → 2024-11-01 | Outpatient (CLI) | payer MEDICARE, BC, SELFPAY ==
[2024-11-01 15:32] LABS: Hematocrit 43.4 % (37-47); Hemoglobin 14.3 g/dL (12.0-15.0); Mean Corp Hgb Conc 32.9 g/dL (32-36); Mean Corpuscular Hgb 29.9 pg (27.0-32.0); Mean Corpuscular Volume 90.6 fL (81-99); Mean Platelet Vol. 11.3 fl (6.2-12.0); Platelet Count 210 K/mm3 (150-450); RBC Distribution Width CV 12.7 % (11.6-14.6); RBC Distribution Width SD 41.9 fl (35.1-43.9); Red Blood Count 4.79 M/mm3 (4.2-5.4); White Blood Count 8.1 K/mm3 (4.4-11.0)
[2024-11-01 15:56] LABS: Anion Gap 4 (5-15); BUN 16 mg/dL (7-18); BUN/Creat Ratio 13.7 RATIO (10-20); Calcium,Total 9.7 mg/dL (8.5-10.1); Chloride 106 mmol/L (98-107); Creatinine, Serum 1.17 mg/dL (0.55-1.02); EST Glomerular Filtration Rate 49 mL/min (>60); Est Glom Filt Rate - Afr Amer 59 mL/min (>60); Glucose 132 mg/dL (74-106); Potassium 4.2 mmol/L (3.5-5.1); Sodium Level 139 mmol/L (136-145)
== END | disposition home or self-care (01) ==
LOC: LAB 14:06
PROVIDERS: PCP Internal Medicine; Referring Provider Plastic Surgery; Visit Provider Plastic Surgery
DX: Z01.818 Encounter for other preprocedural examination (principal)
CPT/HCPCS: 36415; 80048; 85027

== ENCOUNTER 2024-11-16 11:42 | Emergency (ER) | payer MEDICARE, BC, SELFPAY ==
[2024-11-16 11:42] VITALS: BP 158/84; PULSE 68; RESP 16; TEMP 35.7; O2SAT 100; BMI 26.2
--- NOTE | 2024-11-16 12:33 | EX.ED.DYSGE1 ---
HPI History of Present Illness Chief Complaint: General Illness Narrative Narrative: 69-year-old female past medical history of diabetes, hypercholesterolemia, presents with EKG changes noted at her preoperative testing at the [facility] outpatient facility locally. She states that next Friday she is supposed to have her breast implants removed. They did an EKG and there was concern for EKG changes. Patient is asymptomatic with this she is not having any chest pain, shortness of breath, and feels well. She was sent over to be evaluated by the ED according to the patient as she was told by the nurse practitioner doing the presurgical testing. [facility] Medical History Left-sided low back pain with left-sided sciatica Hyperlipidemia History of degenerative disc disease History of anxiety disorder History of major depression Family history of osteoarthrosis History of gastroesophageal reflux (GERD) History of osteoarthritis History of high cholesterol History of gastrointestinal disease History of diabetes mellitus History of arthritis History of anemia History of environmental allergies CVA (cerebral vascular accident) Essential hypertension Acute upper respiratory infection TIA (transient ischemic attack) Barretts esophagus Diabetes mellitus, type II Arachnoid cyst Home Medications ?Medication ?Instructions ?Recorded ?Last Taken ?Type duloxetine 60 mg capsule,delayed 60 mg PO DAILY MENTAL HEALTH 06/30/14 04/25/20 History release trazodone 100 mg tablet 100 mg PO QHS 04/28/18 04/24/20 History semaglutide 0.25 mg or 0.5 mg (2 0.25 mg subcut QWEEK 01/17/22 Unknown History mg/1.5 mL) subcutaneous pen injector tramadol 50 mg tablet 50 mg PO DAILY PRN pain 01/17/22 Unknown History bupropion HCl 75 mg tablet 75 mg PO LUNCH 09/24/23 Unknown History pantoprazole 40 mg tablet,delayed 40 mg PO DAILY 09/24/23 Unknown History release benzonatate 100 mg capsule 100 mg PO TID PRN cough #20 caps 06/14/24 Unknown Rx methylprednisolone 4 mg tablets in See Rx Instructions PO PER PKG DIR 06/14/24 Unknown Rx a dose pack (Medrol (Axel)) #21 tabs semaglutide 1 mg/dose (4 mg/3 mL) mg subcut 09/15/24 Unknown History subcutaneous pen injector (Ozempic) duloxetine 60 mg capsule,delayed 60 mg PO QDAY 10/27/24 Unknown History release (Cymbalta) Allergy/AdvReac Type Severity Reaction Status Date / Time ibuprofen (From Motrin) Allergy Mild Other Verified 11/01/24 13:12 lisinopril Allergy Other Verified 11/01/24 13:12 Family History Father Hypertension Diabetes Emphysema lung Cancer Lung Mother Ischemic heart disease Surgical History History of repair of hiatal hernia History of appendectomy Hx of breast implants, bilateral Social History Smoking Status: Never smoker alcohol intake: current details: Socially substance use type: does not use additional social history: pt denies vaping, denies edibles, denies marijuana use, denies aspirin and ibuprofen. ROS ROS ED ROS Narrative Negative review of systems. No chest pain, shortness of breath, nausea, vomiting, sweating, or other symptoms. Patient is without complaints. EXAM Physical Exam Narrative Exam Narrative: Afebrile. Vital signs noted. Regular rate and rhythm. Lungs clear to auscultation bilaterally. Abdomen soft nontender with normoactive bowel sounds. Neurological examination is nonfocal and nonlateralizing. Const Vital Signs: 11/16/24 11:42 11/16/24 11:58 11/16/24 12:46 Temperature 96.2 F L 97.4 F L Temperature Source Temporal Pulse Rate 68 49 L Respiratory Rate 16 16 Respiratory Effort Normal Non-Labored Respiratory Pattern Normal Blood Pressure 158/84 H 151/68 H Blood Pressure Mean 108 95 Pulse Ox 100 93 Oxygen Delivery Method Room Air MDM MDM MDM Narrative Medical decision making narrative: No feel differential diagnosis is applicable in this case. She was sent for reported EKG changes. I reviewed the EKG that was faxed from today and interpreted as sinus bradycardia. There is T wave inversion noted in leads V4 through V6 and perhaps in V3 anterolaterally. An EKG was obtained here and interpreted by myself and was sinus bradycardia at 55 bpm with again noted T wave inversion in V3 through V6. No acute ST changes. As these are nonspecific ST changes on her EKG and she is asymptomatic, I do not feel that she requires any further workup. I feel she can be discharged to follow-up with her surgeon and the anesthesiologist for her surgery next week. Her daughter is at the bedside who is an RN as well. Return instructions to the emergency department were reviewed. Disposition is discharged home in stable condition. Discharge Plan Triage Chief Complaint: General Illness ED Provider: Mina Antonio Dx/Rx/DC Orders Clinical Impression: Encounter for medical screening examination, Nonspecific ST-T wave electrocardiographic changes Instructions: ED Screening Exam Medical Nonurgent Prescriptions: No Action tramadol 50 mg tablet 50 mg PO DAILY PRN (Reason: pain) semaglutide 0.25 mg or 0.5 mg(2 mg/1.5 mL) pen injector 0.25 mg subcut QWEEK Rx Instructions: for 4 doses methylprednisolone [Medrol (Axel)] 4 mg tablets,dose pack See Rx Instructions PO PER PKG DIR Qty: 21 0RF Rx Instructions: PO PER PKG DIR benzonatate 100 mg capsule 100 mg PO TID PRN (Reason: cough) Qty: 20 0RF Ozempic 1 mg/dose (4 mg/3 mL) pen injector subcut duloxetine [Cymbalta] 60 mg capsule,delayed release(DR/EC) 60 mg PO QDAY duloxetine 60 MG capsule 60 mg PO DAILY Patient Comments: anti-depressant trazodone 100 MG tablet 100 mg PO QHS bupropion HCl 75 mg tablet 75 mg PO LUNCH pantoprazole 40 mg tablet,delayed release (DR/EC) 40 mg PO DAILY Primary Care Provider: Manda Howe Referrals: Manda Howe MD [Primary Care Provider] - As soon as possible Print Language: Korean Disposition Disposition: Home, Self Care Discharge Date/Time: 11/16/24 12:52
[2024-11-16 12:46] VITALS: BP 151/68; PULSE 49; RESP 16; TEMP 36.3; O2SAT 93
== END 2024-11-16 12:52 | disposition home or self-care (01) ==
PROVIDERS: Emergency Provider Emergency Medicine; PCP Internal Medicine; Visit Provider Emergency Medicine
DX: R94.31 Abnormal electrocardiogram [ECG] [EKG] (principal); E11.9 Type 2 diabetes mellitus without complications; R00.1 Bradycardia, unspecified; I10 Essential (primary) hypertension; E78.00 Pure hypercholesterolemia, unspecified; Z86.73 Personal history of transient ischemic attack (TIA), and cerebral infarction without residual deficits; Z79.899 Other long term (current) drug therapy; F41.9 Anxiety disorder, unspecified; F32.9 Major depressive disorder, single episode, unspecified; Z79.85 Long-term (current) use of injectable non-insulin antidiabetic drugs; K21.9 Gastro-esophageal reflux disease without esophagitis; Z90.49 Acquired absence of other specified parts of digestive tract
CPT/HCPCS: 93005; 99282

== ENCOUNTER 2024-12-06 19:13 | Emergency (ER) | payer MEDICARE, BC, SELFPAY ==
[2024-12-06] VITALS (8 sets, daily range): BP systolic 129–154; BP diastolic 62–94; PULSE 48–57; RESP 18–20; TEMP 36.6–36.7; O2SAT 94–98
--- NOTE | 2024-12-06 19:46 | ED.VIS.CHEST ---
HPI History of Present Illness Chief Complaint: Chest Pain [facility] Medical History Hyperlipidemia Essential hypertension TIA (transient ischemic attack) Stroke/cerebrovascular accident Diabetes mellitus, type II GERD (gastroesophageal reflux disease) Barretts esophagus Non-smoker Wears glasses Wears dentures Post-menopausal Diaphragmatic hernia without mention of obstruction or gangrene Generalized osteoarthrosis Alcohol use Depression Anxiety Arthritis Back pain Dietary restriction History of GI bleed History of stress test Acute upper respiratory infection Arachnoid cyst Home Medications ?Medication ?Instructions ?Recorded ?Last Taken ?Type duloxetine 60 mg capsule,delayed 60 mg PO DAILY MENTAL HEALTH 06/30/14 04/25/20 History release bupropion HCl 75 mg tablet 75 mg PO LUNCH 09/24/23 Unknown History rosuvastatin 10 mg tablet 10 mg PO QHS 11/24/24 Unknown History semaglutide 2 mg/dose (8 mg/3 mL) 2 mg subcut SA 11/24/24 11/13/24 History subcutaneous pen injector (Ozempic) sucralfate 1 gram tablet (Carafate) 1 g PO TID PRN upper abdominal 12/06/24 Unknown Rx pain #20 tabs tramadol 50 mg tablet 50 mg PO BID PRN pain 12/06/24 Unknown History trazodone 100 mg tablet 200 mg PO QHS PRN 12/06/24 Unknown History Allergy/AdvReac Type Severity Reaction Status Date / Time ibuprofen (From Motrin) Allergy Mild Other Verified 12/06/24 19:16 lisinopril Allergy Other Verified 12/06/24 19:16 Family History Father Hypertension Diabetes Emphysema lung Cancer Lung Mother Ischemic heart disease Hepatitis Grandmother Stomach cancer Surgical History Status post right breast implant Status post left breast implant History of cardiac catheterization Hx of colonoscopy History of esophagogastroduodenoscopy (EGD) History of repair of hiatal hernia History of appendectomy Hx of breast implants, bilateral Social History Smoking Status: Never smoker alcohol intake: current details: Socially substance use type: does not use additional social history: pt denies vaping, denies edibles, denies marijuana use, denies aspirin and ibuprofen. EXAM Physical Exam Const Vital Signs: 12/06/24 19:14 12/06/24 19:45 12/06/24 20:13 Temperature 98.0 F Temperature Source Temporal Pulse Rate 57 L 50 L Respiratory Rate 18 Blood Pressure 154/94 H 129/62 H Blood Pressure Mean 114 84 Pulse Ox 98 98 98 Oxygen Delivery Method Room Air Room Air 12/06/24 20:29 12/06/24 21:00 12/06/24 21:19 Temperature Temperature Source Pulse Rate 49 L 48 L Respiratory Rate 19 H Blood Pressure 149/72 H 148/72 H Blood Pressure Mean 97 97 Pulse Ox 98 98 98 Oxygen Delivery Method Room Air Room Air 12/06/24 22:00 12/06/24 22:00 Temperature Temperature Source Pulse Rate 50 L 50 L Respiratory Rate 20 H Blood Pressure 136/80 H 136/80 H Blood Pressure Mean 98 98 Pulse Ox 94 Oxygen Delivery Method MDM MDM MDM Narrative Medical decision making narrative: HISTORY OF PRESENT ILLNESS: 69-year-old female presents with chest pain. Locates pain in her left breast/upper abdomen. Pain is sharp. States this began earlier today. It is slightly eased up since initiation. No shortness of breath. Is not exertional. It is associated with food. Is not associate with movement. Denies lower extremity swelling. She denies any bleeding diathesis. Denies any vomiting or diarrhea. The patient denies recent surgery in the last 4 weeks or immobilization in the last 3 days, denies previous diagnosis of DVT or PE, hemoptysis, unilateral leg swelling or malignancy with treatment the last 6 months or palliative. No estrogen use noted. Patient denies sudden onset of pain, no tearing sensation, no migratory symptoms, no new numbness, weakness or loss of sensation. Patient denies family history or personal history of Connective tissue disorders (Marfan's Syndrome, Beka Danlos etc). Patient denies breast drainage or discharge. No overlying skin changes. REVIEW OF SYSTEMS: Pertinent positives: Chest pain Pertinent negatives: Abdominal pain, vomiting PHYSICAL EXAM: Nursing triage notes reviewed, Vital signs reviewed Constitutional: please see mdm HENT: MMM Eyes: Pupils equal round and reactive to light, Extraocular muscles intact Neck: No stridor, no JVD, full neck ROM Lungs: Clear to auscultation, No wheezing or rales. No increased work of breathing, no conversational dyspnea, no accessory muscle use, no nasal flaring. No respiratory distress noted Heart: Regular rate and rhythm, No murmurs, No rubs and No gallops, 2+ distal pulses (radial, femoral, posterior tibial) in all extremities Abdomen: Soft, mild epigastric TTP but no rigidity, rebound or guarding, no obvious peritoneal signs, no palpable pulsatile abdominal masses, no auscultated abdominal bruit : No CVAT Extremities: No edema Neuro: No new focal neurological deficits, cranial nerves II through XII intact, 5/5 strength in all present extremities. Intact sensation to light touch in all present extremities, 2+ reflexes bilateral patella tendons. Skin: No rash or lesions noted MEDICAL DECISION MAKING: Chief Complaint: Chest pain External records reviewed: [Reviewed prior cardiovascular testing: Echocardiogram shows ejection fraction 65%. Reviewed prior stress test from 2017 which showed no obvious EKG changes at peak exercise Factors affecting care: Type 2 diabetes, Ibanez's esophagus, hypertension, GERD Social determinants of health: Alcohol use History obtained from others: none Consults: none MDM Narrative: Patient was initially hemodynamically stable, afebrile and nontoxic-appearing. Exam without focal cardiopulmonary abnormalities. Abdomen soft without significant tenderness with no peritoneal signs. I considered the following differential diagnosis: ACS, arrhythmia, anemia, electrolyte disturbance, pneumothorax, PE, pericarditis, aortic dissection, acute pancreatitis, hepatobiliary pathology, gastric perforation or small bowel obstruction. ALL IMAGES (IF OBTAINED) HAVE BEEN PERSONALLY REVIEWED AND INTERPRETED BY MYSELF. EKG was obtained via triage protocol secondary to poor department dynamics including high acuity and high volume. EKG with sinus bradycardia, rate of 53, ME ME interval appears grossly normal, left axis deviation, no STEMI. Nonspecific T wave inversion noted in V5 and V6. Similar to prior EKG from November 16, 2024 High-sensitivity troponin is negative, no evidence of myocardial ischemiax2 CMP without evidence of acute kidney injury, significant electrolyte abnormality, anion gap to suggest end organ hypo-perfusion, no evidence of metabolic acidosis with a normal bicarbonate, no evidence of hepatobiliary obstructive pathology. Noted slight elevation alkaline phosphatase which is similar to baseline. Also noted new slight elevation in ALT. This is nonspecific CBC without leukocytosis, severe anemia, no thrombocytopenia. I have personally reviewed the patient's chest x-ray. Chest x-ray is unremarkable for pulmonary edema, pneumothorax, pneumonia or focal cardiopulmonary abnormality. Lipase is wnl indicating no pancreatic inflammation. Upon re-evaluation the patient abdominal exam remained benign. No she feels slightly better after IV Pepcid. The synthesis of the patient's history, physical exam, labs and images suggest no acute life or limb threatening etiology. I suspect her symptoms are related to GI origin given history of GERD, Ibanez's esophagus and epigastric nature of her pain. Will prescribe Carafate and give her close GI, cardiology and PCP follow-up. The patient and/or family, caregivers express understanding. The patient and/or family, caregivers agrees with the plan. Shared decision making: I will have a discussion with the patient and or visitors regarding risk/benefits of further testing or admission. They will be made aware of of the risk/benefits inherent in this decision they will be given the opportunity to voice understanding. Total critical care time today provided was at least 0 minutes. This excludes separately billable procedures. Critical care time (if documented) is secondary to the patient having high probability of clinically significant/life threatening deterioration in the patient's condition which required my urgent intervention. Impression: 1. Chest pain 2. Epigastric abdominal pain Dispo: Discharge home This note was generated with [employer] dictation software. It may contain incorrect words, spelling, and punctuation that were not noted in review of the chart prior to signing. Lab Data Labs: Laboratory Results - last 24 hr 12/06/24 12/06/24 19:43 22:11 WBC 7.3 RBC 4.23 Hgb 12.4 Hct 38.2 MCV 90.3 MCH 29.3 MCHC 32.5 RDW Std Deviation 43.3 RDW Coeff of Lisa 13.1 Plt Count 184 MPV 11.0 Immature Gran % (Auto) 0.400 Neut % (Auto) 55.8 Lymph % (Auto) 29.7 [place] % (Auto) 8.9 Eos % (Auto) 4.5 Baso % (Auto) 0.7 Absolute Neuts (auto) 4.1 Absolute Lymphs (auto) 2.18 Nucleated RBC % 0 Sodium 140 Potassium 4.0 Chloride 106 Carbon Dioxide 29.0 Anion Gap 5 BUN 23 H Creatinine 0.95 Est GFR (MDRD) Af Amer 75 Est GFR (MDRD) Non-Af 62 BUN/Creatinine Ratio 24.1 H Glucose 113 H Calcium 9.2 Total Bilirubin 0.80 Direct Bilirubin 0.22 AST 26 ALT 59 H Alkaline Phosphatase 124 H Troponin I High Sens 5 7 Total Protein 6.7 Albumin 3.5 Globulin 3.2 Lipase 40 Radiography Diagnostic Testing: Clinical Impression(s) from Imaging Studies Chest X-Ray 12/06/24 20:25 IMPRESSION: No acute findings in the chest. Electronically Signed: Jose Armando AllyssaAdebayo Panda DO at 21:06 EST , Discharge Plan Triage Chief Complaint: Chest Pain ED Provider: Dillan Blanc Dx/Rx/DC Orders Instructions: Chest Pain [facility] Prescriptions: New sucralfate [Carafate] 1 gram tablet 1 g PO TID PRN (Reason: upper abdominal pain) Qty: 20 0RF No Action tramadol 50 mg tablet 50 mg PO BID PRN (Reason: pain) duloxetine 60 MG capsule 60 mg PO DAILY Patient Comments: anti-depressant trazodone 100 mg tablet 200 mg PO QHS PRN bupropion HCl 75 mg tablet 75 mg PO LUNCH rosuvastatin 10 mg tablet 10 mg PO QHS Ozempic 2 mg/dose (8 mg/3 mL) pen injector 2 mg subcut SA Primary Care Provider: Manda Howe Referrals: Madna Howe MD [Primary Care Provider] - Marck Colón MD [Med Staff - Active Staff] - Friend,DO Bucky [Med Staff - Active Staff] - Activity Restrictions/Additional Instructions: Thank you for trusting us with your care today! Your labs images were reassuring. Specifically no sign of damage to your heart. We also performed blood test which showed no signs of damage to your organs in your abdomen. Please take Tylenol (2 pills, 650 mg), ibuprofen (2 pills, 400 mg) every 6 hours as needed for pain and fever control. Please return to the emergency department if your symptoms change or worsen. Please follow with your primary care physician, Cardiology, Gastroenterology for further outpatient evaluation and management. Print Language: Czech
--- NOTE | 2024-12-06 20:00 | EKG12_ITS ---
Test Reason : CP Blood Pressure : */* mmHG Vent. Rate : 53 BPM Atrial Rate : * BPM P-R Int : * ms QRS Dur : 88 ms QT Int : 456 ms P-R-T Axes : * -18 -72 degrees QTcB Int : 427 ms Sinus bradycardia Nonspecific ST-T changes Abnormal ECG Confirmed by RANDY TIDWELL, SOUTH ([id number]), supervising film or videotape editor SAMANTHA NEWBY ([id number]) on 12/08/2024 6:27:26 AM Referred By: Dillan Blanc Confirmed By: SOUTH PADILLA MD
[2024-12-06] MEDS: Aspirin 81 MG TAB.CHEW 324 MG PO (20:08)
[2024-12-06] MEDS: Famotidine 200 MG/20 ML MDV 20 MG in 0.9% Normal Saline (Pres. free 8 ML 300 MG IV (20:08)
[2024-12-06 20:13] LABS: Absolute Lymphocyte Count 2.18 X10^3/uL (0.83-4.51); Absolute Neutrophil Count 4.1 X10^3/uL (2.0-7.7); Basophil# 0.05 X10^3/uL; Basophil% 0.7 % (0-1); Eosinophil# 0.33 X10^3/uL; Eosinophils% 4.5 % (0-5); Hematocrit 38.2 % (37-47); Hemoglobin 12.4 g/dL (12.0-15.0); Lymphocyte # 2.18 X10^3/ul (0.83-4.51); Lymphocyte % 29.7 % (19-41); Mean Corp Hgb Conc 32.5 g/dL (32-36); Mean Corpuscular Hgb 29.3 pg (27.0-32.0); Mean Corpuscular Volume 90.3 fL (81-99); Monocyte# 0.65 X10^3/uL; Monocyte% 8.9 % (0-10); NRBC Flagged by Analyzer 0 % (0-5); Neutrophil # 4.09 X10^3/uL (2.7-7.7); Neutrophil % 55.8 % (47-70); Platelet Count 184 K/mm3 (150-450); RBC Distribution Width CV 13.1 % (11.6-14.6); RBC Distribution Width SD 43.3 fl (35.1-43.9); Red Blood Count 4.23 M/mm3 (4.2-5.4); White Blood Count 7.3 K/mm3 (4.4-11.0)
--- NOTE | 2024-12-06 20:25 | RAD_ITS ---
EXAM: XR CHEST, 1 VIEW CLINICAL INDICATION: chest pain TECHNIQUE: Frontal view of the chest. COMPARISON: 11/30/2020 FINDINGS: LUNGS AND PLEURAL SPACES: No significant abnormality. No consolidation or edema. No pneumothorax. No effusion. HEART: No significant abnormality. Cardiac silhouette not enlarged. MEDIASTINUM: Central airways and mediastinal contour are unremarkable. BONES/JOINTS: Osseous degenerative changes. No acute fracture. SOFT TISSUES: No significant abnormality. VASCULATURE: Atherosclerosis. OTHER FINDINGS: Bilateral mammoplasty implants with capsular calcifications. RAD/Chest 1 View (Portable) IMPRESSION: No acute findings in the chest. Electronically Signed: Jose Armando Panda DO at 21:06 EST ,
[2024-12-06 20:39] LABS: AST(SGOT) 26 U/L (15-37); Alanine Aminotransfer ALT/SGPT 59 U/L (13-56); Albumin, Serum 3.5 g/dL (3.2-5.0); Alkaline Phosphatase 124 U/L (45-117); Anion Gap 5 (5-15); BUN 23 mg/dL (7-18); BUN/Creat Ratio 24.1 RATIO (10-20); Bilirubin, Direct 0.22 mg/dL (0.00-0.30); Calcium,Total 9.2 mg/dL (8.5-10.1); Chloride 106 mmol/L (98-107); Creatinine, Serum 0.95 mg/dL (0.55-1.02); EST Glomerular Filtration Rate 62 mL/min (>60); Est Glom Filt Rate - Afr Amer 75 mL/min (>60); Globulin 3.2 g/dL (2.2-4.2); Glucose 113 mg/dL (74-106); Lipase 40 U/L (13-75); Protein, Total 6.7 g/dL (6.4-8.2); Sodium Level 140 mmol/L (136-145); Troponin-I HS (w/2H Reflex) 5 pg/mL (3.0-54.0)
[2024-12-06 22:08] LABS: Reflex Troponin-HS? (from REC) Y
[2024-12-06 22:36] LABS: Troponin-I HS 7 pg/mL (3.0-54.0)
== END 2024-12-06 23:03 | disposition home or self-care (01) ==
PROVIDERS: Emergency Provider Emergency Medicine; PCP Internal Medicine; Referring Provider Emergency Medicine; Visit Provider Emergency Medicine
DX: R07.9 Chest pain, unspecified (principal); E11.9 Type 2 diabetes mellitus without complications; E78.5 Hyperlipidemia, unspecified; I10 Essential (primary) hypertension; K22.70 Barrett's esophagus without dysplasia; R10.13 Epigastric pain; Z80.0 Family history of malignant neoplasm of digestive organs; R00.1 Bradycardia, unspecified; Z86.73 Personal history of transient ischemic attack (TIA), and cerebral infarction without residual deficits; K21.9 Gastro-esophageal reflux disease without esophagitis
CPT/HCPCS: 71045; 80048; 80076; 83690; 84484; 85025; 93005; 96374; 99284; A4216

== ENCOUNTER → 2024-12-23 | Outpatient (CLI) | payer MEDICARE, BC, SELFPAY ==
--- NOTE | 2024-12-23 06:16 | ECHOD_ITS ---
Reason For Study Procedure This was a 2D Doppler, Color Flow transthoracic echocardiogram. Exam performed in department. Left Ventricle Normal size and thickness. The left ventricular ejection fraction is 65 %. Diastolic function is indeterminate. Right Ventricle Normal right ventricle. Atria The left atrium is mildly enlarged. Normal right atrium. Mitral Valve Mild (1+) mitral valve insufficiency. Tricuspid Valve Mild tricuspid valve insufficiency. Normal pulmonary artery pressure. Aortic Valve Trisinus/trileaflet aortic valve. Mild (1+) eccentric aortic valve insufficiency. Pulmonic Valve The pulmonic valve is not well visualized. Great Vessels Normal-sized aortic root. Pericardium/Pleural Trivial pericardial effusion. Epicardial fat. MMode/2D Measurements & Calculations LVIDd: 4.3 cm IVSd: 0.95 cm LVOT diam: 2.0 cm LVIDs: 3.3 cm LVPWd: 0.88 cm LVOT area: 3.0 cm2 RVDd: 3.0 cm FS: 23.8 % Ao root diam: 3.3 cm LAV(MOD-bp): 61.7 ml LVAd ap4: 22.4 cm2 LA dimension: 4.3 cm LAV(MOD-bp) Indexed: 35.6 ml/m2 LVLd ap4: 7.3 cm LAV(MOD-sp2): 65.3 ml EDV(MOD-sp4): 58.6 ml LAV(MOD-sp4): 52.7 ml EDV(sp4-el): 58.1 ml LVAs ap4: 11.3 cm2 LVLs ap4: 5.8 cm ESV(MOD-sp4): 20.0 ml ESV(sp4-el): 18.6 ml EF(MOD-sp4): 65.9 % EF(sp4-el): 68.0 % SV(MOD-sp4): 38.6 ml SV(sp4-el): 39.5 ml LA A4 area: 19.6 cm2 SI(MOD-sp4): 22.3 ml/m2 LA dimension(2D): 4.1 cm RA A4 area: 14.7 cm2 Time Measurements MV dec time: 0.17 sec Doppler Measurements & Calculations MV E max edmund: 73.8 cm/sec Lat Peak E' Edmund: 9.6 cm/sec Med Peak E' Edmund: 7.7 cm/sec MV A max edmund: 79.1 cm/sec E/E' lat: 7.7 E/E' med: 9.5 MV E/A: 0.93 MV V2 max: 90.3 cm/sec Ao V2 max: 135.6 cm/sec MV max P.3 mmHg MV dec slope: 457.1 cm/sec2 Ao max P.4 mmHg MV V2 mean: 53.0 cm/sec Ao V2 mean: 83.9 cm/sec MV mean P.3 mmHg Ao mean P.5 mmHg MV V2 VTI: 37.1 cm Ao V2 VTI: 34.4 cm AV (velocity ratio): 0.85 MVA(VTI): 2.3 cm2 HOWIE(I,D): 2.5 cm2 HOWIE(V,D): 2.6 cm2 LV V1 max: 118.0 cm/sec SV(LVOT): 87.1 ml PA V2 max: 92.8 cm/sec LV V1 max P.6 mmHg PA V2 mean: 67.5 cm/sec LV V1 mean P.7 mmHg LV V1 mean: 75.1 cm/sec LV V1 VTI: 29.1 cm TR max edmund: 247.9 cm/sec TR max P.6 mmHg ECHO/Echo Complete Interpretation Summary The left ventricular ejection fraction is 65 %. Diastolic function is indeterminate. The left atrium is mildly enlarged. Mild (1+) mitral valve insufficiency. Mild tricuspid valve insufficiency. Mild (1+) eccentric aortic valve insufficiency. Trivial pericardial effusion. Epicardial fat. Ordering Physician: Abelino Andrade Referring Physician: Abelino Andrade Performed By:
--- NOTE | 2024-12-23 12:33 | STRESSREP_ITS ---
Stress Test Report Date: 12/23/2024 Procedure: Pharmacologic stress nuclear imaging study Indications: Abnormal ECG Consent: Per the patient Procedure: The patient underwent pharmacologic (Regadenoson 0.4mg ) evaluation with a peak heart rate of 87 beats per minute (57%predicted maximal heart rate) and a peak blood pressure of 138/80 mmHg. The baseline ECG demonstrated sinus rhythm with nonspecific ST-T wave changes. The peak pharmacologic ECG was nondiagnostic secondary to baseline abnormalities. There were no cardiac dysrhythmias pretest, during pharmacologic infusion, or recovery. There was no complaint of chest discomfort during pharmacologic infusion or recovery. The patient was injected with 11.7 millicuries of technetium 99m Cardiolite and subsequently rest SPECT Cardiolite nuclear imaging was obtained in the horizontal long, vertical long, and short axis views. The patient underwent pharmacologic (Regadenoson) evaluation. The patient was injected with 33.4 millicuries of technetium 99m Cardiolite and subsequently stress SPECT Cardiolite nuclear imaging was obtained in the horizontal long, vertical long, and short axis views. A gated Cardiolite study at peak stress was obtained. The examination was stopped secondary to completion of protocol. Rest and stress SPECT Cardiolite nuclear imaging status post realignment, normalization, and attenuation correction demonstrate no fixed or reversible perfusion defects. There is end systolic thickening and brightening. The gated Cardiolite study demonstrates myocardial thickening and inward wall motion. The reported LVEF is 87%. Impression: 1. Pharmacologic (Regadenoson) evaluation 2. Peak pharmacologic ECG with no ischemic changes. 3. There were no cardiac dysrhythmias pretest, during pharmacologic infusion, or recovery. 5. Rest and stress SPECT Cardiolite nuclear imaging demonstrate relative uniform tracer uptake and myocardial perfusion appearing within normal limits. 6. The gated Cardiolite study reports an LVEF of 87%. This note was generated with [employer]ation software. It may contain incorrect words, spelling, and punctuation that were not noted in checking the note before signing.
== END | disposition home or self-care (01) ==
LOC: CVS 06:16
PROVIDERS: PCP Internal Medicine; Referring Provider Internal Medicine Cardiovascular Disease; Visit Provider Internal Medicine Cardiovascular Disease
DX: R94.31 Abnormal electrocardiogram [ECG] [EKG] (principal); I10 Essential (primary) hypertension; R53.83 Other fatigue; E78.5 Hyperlipidemia, unspecified
CPT/HCPCS: 78452; 93017; 93306; A9500; A4216; J2785

== ENCOUNTER 2024-12-30 05:46 | Day surgery (SDC) | payer MEDICARE, BC, SELFPAY ==
--- NOTE | 2024-12-28 16:03 | PAT.ANESEVAL ---
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 When Was Last Pacemaker Check QUESTION #4 FULL TEXT: You/Your Family Experience fever (hyperthermia) with Anesthesia Last Oral Intake Last Oral intake: Last Oral Intake NPO since Meds taken in AM with sips of water? 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 Has anyone observed you stop No 12/28/24 08:42 breathing during sleep? STOP Results Positive 12/28/24 08:42 QUESTION #5 FULL TEXT : Do you snore loudly (louder than talking or can be heard through closed doors)? 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 Specify any problems Hx of Preganancy in last 3 No 12/28/24 08:42 Months Nurse Filling Out Transfusion DSCHRIBER 12/28/24 08:42 & Questions: Date: 12/28/24 12/28/24 08:42 Time: 08:43 12/28/24 08:42 Patient unable to answer at this time (ie. 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: /Reproductive Hx- electric locomotive crane operator Hx Now No 12/28/24 08:42 Gestational Age (in weeks): EDC: Hx Hx Para Hx Section SAB No 12/28/24 08:42 [facility] Medical History (Updated 12/28/24 @ 08:48 by Kristina Connor) Cardiology follow-up encounter History of echocardiogram Hyperlipidemia Generalized osteoarthrosis Diaphragmatic hernia without mention of obstruction or gangrene GERD (gastroesophageal reflux disease) Wears glasses Wears dentures Post-menopausal Alcohol use Depression Anxiety Arthritis Back pain Stroke/cerebrovascular accident Dietary restriction History of GI bleed Non-smoker History of stress test Essential hypertension Acute upper respiratory infection TIA (transient ischemic attack) Barretts esophagus Diabetes mellitus, type II Arachnoid cyst Home Medications ?Medication ?Instructions ?Recorded ?Last Taken ?Type duloxetine 60 mg capsule,delayed 60 mg PO DAILY MENTAL HEALTH 06/30/14 04/25/20 History release bupropion HCl 75 mg tablet 75 mg PO LUNCH 09/24/23 Unknown History rosuvastatin 10 mg tablet 10 mg PO QHS 11/24/24 Unknown History semaglutide 2 mg/dose (8 mg/3 mL) 2 mg subcut SA 11/24/24 12/18/24 History subcutaneous pen injector (Ozempic) sucralfate 1 gram tablet (Carafate) 1 g PO TID PRN upper abdominal 12/06/24 Unknown Rx pain #20 tabs tramadol 50 mg tablet 50 mg PO BID PRN pain 12/06/24 Unknown History trazodone 100 mg tablet 100 mg PO QHS 12/09/24 Unknown History pantoprazole 40 mg tablet,delayed 40 mg PO BID 12/28/24 Unknown History release Allergy/AdvReac Type Severity Reaction Status Date / Time ibuprofen (From Motrin) Allergy Mild Other Verified 12/28/24 08:39 lisinopril Allergy Other Verified 12/28/24 08:39 Family History Father Hypertension Diabetes Emphysema lung Cancer Lung Mother Ischemic heart disease Hepatitis Grandmother Stomach cancer Surgical History History of cardiac catheterization Hx of colonoscopy History of esophagogastroduodenoscopy (EGD) Status post left breast implant Status post right breast implant History of repair of hiatal hernia History of appendectomy Hx of breast implants, bilateral Social History Smoking Status: Never smoker alcohol intake: current details: Socially substance use type: does not use additional social history: pt denies vaping, denies edibles, denies marijuana use, denies aspirin and ibuprofen. Audit: Pertinent Findings Pertinent Findings EKG Perinent findings: December 06, 2024. Sinus bradycardia at [address]-T changes. Stress test pertinent findings: December 23, 2024. Ejection fraction is 87%. There are no fixed or reversible perfusion defects at rest and with stress. Echo (EF%) pertinent findings: December 23, 2024. Ejection fraction 65%. Normal PA pressure. No aortic stenosis noted. Consult pertinent findings: December 09, 2024. Dr. Andrade. 1. Preop cardiovascular exam-EKG suggestive of anterior ischemia. Will risk stratify the patient with an echocardiogram and pharmacologic stress test. If no significant abnormalities are noted they may proceed with proposed procedure. (See above) Recommendation Anesthesia Recommendation Anesthesia recommendation: OPTIMIZED for anesthesia
[2024-12-30] VITALS (13 sets, daily range): BP systolic 120–160; BP diastolic 52–94; PULSE 53–98; RESP 12–18; TEMP 36–37.7; O2SAT 93–100; BMI 27.3
--- NOTE | 2024-12-30 06:51 | PRE.ANES_ITS ---
ASA Classification* ASA Classification ASA Classification: 2 Assessment & Plan Anesthesia* Anesthesia Assessment Anesthesia Assessment: Discussed sedation and/or anesthesia options, risks, benefits, and alternatives with patient/parents/legal guardian/POA. Questions invited. The patient/parents/legal guardian/POA seems to understand and agrees to proceed with anesthesia plan. Reviewed the physical assessment, medical history, allergy history and patient home medications list prior to surgery/procedure/anesthetic and documented any changes. Performed airway and anesthesia risk assessments. Anesthesia Type Anesthesia Type: General History Source History Obtained from:: Patient and Chart Anesthesia Focused Assessment* Temperature: 98.5 F Pulse Rate: 53 Blood Pressure: 128/52 Respiratory Rate: 16 Pulse Ox: 97 Oxygen Delivery Method: Room Air Airway Assessment Mouth opens: >3 cm Mallampati Score: I Teeth Condition: Dentures (Patient has full upper and lower dentures.) Neck Range of motion (ROM): Limited ROM (Slight decrease in extension) Focused Labs Anesthesia Preop lab: CBC WBC 7.3 K/mm3 (4.4-11.0) 12/06/24 19:43 12/06/24 RBC 4.23 M/mm3 (4.2-5.4) 12/06/24 19:43 12/06/24 Hgb 12.4 g/dL (12.0-15.0) 12/06/24 19:43 12/06/24 Hct 38.2 % (37-47) 12/06/24 19:43 12/06/24 Plt Count 184 K/mm3 (150-450) 12/06/24 19:43 12/06/24 CHEMISTRY Potassium 4.0 mmol/L (3.5-5.1) 12/06/24 19:43 12/06/24 Sodium 140 mmol/L (136-145) 12/06/24 19:43 12/06/24 Magnesium 1.7 mg/dL (1.8-2.4) L 06/30/14 15:03 06/30/14 BUN 23 mg/dL (7-18) H 12/06/24 19:43 12/06/24 Creatinine 0.95 mg/dL (0.55-1.02) 12/06/24 19:43 12/06/24 Glucose [facility] 167 mg/dL (70-110) H 06/21/22 15:12 10/31 Glucose 113 mg/dL (74-106) H 12/06/24 19:43 12/06/24 POC Glucose 148 mg/dL (70-110) H 04/29/18 16:43 04/29/18 TSH 1.64 uIU/mL (0.358-3.74) 04/28/18 18:42 COAG PT 12.7 SECONDS (11.7-14.9) 04/28/18 18:42 Pre-Assessment Diagnosis/Proposed Procedure Planned Operative Procedure(s): BILAT SILICONE IMPLANT REMOVAL WITH CAPSULECTOMY Anesthesia History 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 When Was Last Pacemaker Check QUESTION #4 FULL TEXT: You/Your Family Experience fever (hyperthermia) with Anesthesia Last Oral Intake Last Oral intake: Last Oral Intake NPO since 05:30 12/30/24 06:38 Meds taken in AM with sips of Yes 12/30/24 06:38 water? 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 Female Yes 12/28/24 08:42 HX of Motion Sickness No 12/28/24 08:42 HX of N/V After Surgery No 12/28/24 08:42 Non-Smoker Yes 12/28/24 08:42 Duration of Surgery greater Yes 12/28/24 08:42 than 60 minutes Number of Risk Factors 3 12/28/24 08:42 PONV Score Moderate Risk 12/28/24 08:42 Height & Weight Height & Weight: Anesthesia: Height & Weight Height 5 ft 3 in 12/30/24 06:38 Weight: 70 kg 12/30/24 06:38 Body Mass Index (BMI) 27.3 12/30/24 06:38 Respiratory Assessment Respiratory Assessment - 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 Has anyone observed you stop No 12/28/24 08:42 breathing during sleep? STOP Results Positive 12/28/24 08:42 QUESTION #5 FULL TEXT : Do you snore loudly (louder than talking or can be heard through closed doors)? 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 Specify any problems Hx of Preganancy in last 3 No 12/28/24 08:42 Months Nurse Filling Out Transfusion DSCHRIBER 12/28/24 08:42 & Questions: Date: 12/28/24 12/28/24 08:42 Time: 08:43 12/28/24 08:42 Patient unable to answer at this time (ie. 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: /Reproductive Hx- marsh buggy operator Hx Now No 12/28/24 08:42 Gestational Age (in weeks): EDC: Hx Hx Para Hx Section SAB No 12/28/24 08:42 Active Medications Active Medications: Current Medications Generic Name Dose Route Start Last Admin Trade Name Freq PRN Reason Stop Dose Admin Cefazolin Sodium 2 gm/ N/A 20 mls @ 400 mls/hr 12/30/24 07:30 IV 12/30/24 07:32 PREOP [facility] Medical History Cardiology follow-up encounter History of echocardiogram Hyperlipidemia Generalized osteoarthrosis Diaphragmatic hernia without mention of obstruction or gangrene GERD (gastroesophageal reflux disease) Wears glasses Wears dentures Post-menopausal Alcohol use Depression Anxiety Arthritis Back pain Stroke/cerebrovascular accident Dietary restriction History of GI bleed Non-smoker History of stress test Essential hypertension Acute upper respiratory infection TIA (transient ischemic attack) Barretts esophagus Diabetes mellitus, type II Arachnoid cyst Home Medications ?Medication ?Instructions ?Recorded ?Last Taken ?Type duloxetine 60 mg capsule,delayed 60 mg PO DAILY MENTAL HEALTH 06/30/14 12/30/24 History release bupropion HCl 75 mg tablet 75 mg PO LUNCH 09/24/23 History rosuvastatin 10 mg tablet 10 mg PO QHS 11/24/24 History semaglutide 2 mg/dose (8 mg/3 mL) 2 mg subcut SA 11/2412/18/24 History subcutaneous pen injector (Ozempic) sucralfate 1 gram tablet (Carafate) 1 g PO TID PRN upp er abdominal 12/06/24 12/29/24 Rx pain #20 tabs tramadol 50 mg tablet 50 mg PO BID PRN pain Unknown History trazodone 100 mg tablet 100 mg PO QHS 12/09/2412/29 History pantoprazole 40 mg tablet,delayed 40 mg PO BID 5 12/30/24 History release Allergy/AdvReac Type Severity Reaction Status Date / Time ibuprofen (From Motrin) Allergy Mild Other Verified 12/30/24 06:18 lisinopril Allergy Other Verified 12/30/24 06:18 Family History Father Hypertension Diabetes Emphysema lung Cancer Lung Mother Ischemic heart disease Hepatitis Grandmother Stomach cancer Surgical History History of cardiac catheterization Hx of colonoscopy History of esophagogastroduodenoscopy (EGD) Status post left breast implant Status post right breast implant History of repair of hiatal hernia History of appendectomy Hx of breast implants, bilateral Social History Smoking Status: Never smoker alcohol intake: current details: Socially substance use type: does not use additional social history: pt denies vaping, denies edibles, denies marijuana use, denies aspirin and ibuprofen. Review of Systems (Anesthesia) ROS Narrative System reviewed and no additional complaints, except as documented.
[2024-12-30] MEDS: 0.9% Normal Saline (1000mL) 1,000 ML 15 ML IV (07:20)
--- NOTE | 2024-12-30 07:27 | PCM.HP.STD ---
HPI - General General Date of Admission: 12/30/24 Date of Service: 12/30/24 Chief Complaint: Breast pain and ruptured implants HPI Narrative TYRELL JONES, is a 69 F who presents with documentation of bilateral ruptured breast implants, and pain secondary to resulting scarring. She presents for removal of bilateral ruptured silicone implants and capsulectomies. [facility] Medical History Cardiology follow-up encounter History of echocardiogram Hyperlipidemia Generalized osteoarthrosis Diaphragmatic hernia without mention of obstruction or gangrene GERD (gastroesophageal reflux disease) Wears glasses Wears dentures Post-menopausal Alcohol use Depression Anxiety Arthritis Back pain Stroke/cerebrovascular accident Dietary restriction History of GI bleed Non-smoker History of stress test Essential hypertension Acute upper respiratory infection TIA (transient ischemic attack) Barretts esophagus Diabetes mellitus, type II Arachnoid cyst Home Medications ?Medication ?Instructions ?Recorded ?Last Taken ?Type duloxetine 60 mg capsule,delayed 60 mg PO DAILY MENTAL HEALTH 06/30/14 12/30/24 History release bupropion HCl 75 mg tablet 75 mg PO LUNCH 09/24/23 12/29/24 History rosuvastatin 10 mg tablet 10 mg PO QHS 11/24/24 12/29/24 History semaglutide 2 mg/dose (8 mg/3 mL) 2 mg subcut SA 11/24/24 12/18/24 History subcutaneous pen injector (Ozempic) sucralfate 1 gram tablet (Carafate) 1 g PO TID PRN upper abdominal 12/06/24 12/29/24 Rx pain #20 tabs tramadol 50 mg tablet 50 mg PO BID PRN pain 12/06/24 Unknown History trazodone 100 mg tablet 100 mg PO QHS 12/09/24 12/29/24 History pantoprazole 40 mg tablet,delayed 40 mg PO BID 12/28/24 12/30/24 History release Allergy/AdvReac Type Severity Reaction Status Date / Time ibuprofen (From Motrin) Allergy Mild Other Verified 12/30/24 06:18 lisinopril Allergy Other Verified 12/30/24 06:18 Family History Father Hypertension Diabetes Emphysema lung Cancer Lung Mother Ischemic heart disease Hepatitis Grandmother Stomach cancer Surgical History History of cardiac catheterization Hx of colonoscopy History of esophagogastroduodenoscopy (EGD) Status post left breast implant Status post right breast implant History of repair of hiatal hernia History of appendectomy Hx of breast implants, bilateral Social History Smoking Status: Never smoker alcohol intake: current details: Socially substance use type: does not use additional social history: pt denies vaping, denies edibles, denies marijuana use, denies aspirin and ibuprofen. Vital Signs Vital Signs Vital Signs: 12/30/24 06:38 12/30/24 06:38 12/30/24 06:59 Temperature 98.5 F 98.5 F Temperature Source Temporal Pulse Rate 53 L 53 L Respiratory Rate 16 16 Respiratory Pattern Normal Blood Pressure 128/52 H 128/52 H Blood Pressure Mean 77 Blood Pressure Source Monitor Blood Pressure Position Semi-Fowlers Blood Pressure Location Left Arm Pulse Ox 97 97 Oxygen Delivery Method Room Air Room Air Weight Weight: 154 lb 5.177 oz Body Mass Index (BMI) 27.3 Physical Exam Narrative Bilateral breast implants are firm and hard to palpation, misplaced, and deformed. Const alert, oriented x3, no apparent distress, average body habitus and well nourished General Appearance: cooperative and well developed Orientation / Consciousness: oriented to person, oriented to place and oriented to time HEENT head/scalp atraumatic, external ears normal and external nose normal Head and Scalp: normal to inspection, normocephalic, atraumatic and abrasion Face and Sinus: normal facial exam and face symmetric Nose: external nose normal External Ear: external ears normal External Auditory Canal: EAC's normal Mouth: lips normal Eyes PERRL, EOMs intact bilaterally and conjunctivae normal General Eye: normal appearance of both eyes Periorbital: periorbital findings normal Eyelid: eyelids normal Conjunctiva: conjunctiva normal Pupil: PERRL Neck full ROM Lymph Lymphatic: no lymphadenopathy noted Chest inspection of chest normal Breast/Axilla Palpation: no axillary lymphadenopathy Resp normal respiratory effort, normal air movement and clear to auscultation bilaterally Auscultation: clear to auscultation bilaterally Cardio regular rate, regular rhythm, S1 normal heart sound, S2 normal heart sound and no murmurs Rate: regular rate Rhythm: regular rhythm GI soft to palpation and non-tender Extremity normal to inspection and full ROM General Extremity: normal exam except as noted Skin General Skin Exam: turgor normal Neuro oriented x3, CN's II-XII intact bilaterally, moves all extremities, no focal motor deficits and no sensory deficits noted Sensorium / Orientation: awake, alert, oriented to person, oriented to place and oriented to time Speech: speech normal Gait (Neuro): normal gait Psych mental status grossly normal Attention / Concentration: concentration grossly intact Memory / Cognition: memory grossly intact Assessment & Plan Assessment/Plan (1) Ruptured silicone breast implant: (2) Chronic breast pain: (3) Capsular contracture of breast implant, initial encounter: (4) Chronic back pain: PLAN: Plan Patient for bilateral implant removal and capsulectomies.
--- NOTE | 2024-12-30 07:30 | FORE_PTH ---
PATIENT: TYRELL JONES [place] [facility] [id number] AGE/SX: 69/F ROOM: RE12/30/[address]: Dr. Claribel Schmitz MD : 1955 BED: DIS: 12/30/2024 SPEC #: [id number] RECD: 12/30/24 13:06 STATUS: ANASTASIA REChandan #: [id number] TOMMY: 12/30/24 07:[address]: Claribel Schmitz DEPT: SURGICAL PATHOLOGY RECD BY: Cande Vann ENTERED: 12/30/24 13:26 SP TYPE: FOREIGN B OT DR: Dr. Manda Howe MD Tissues: A - FOREIGN BODY B - FOREIGN BODY Procedures: Surgery Specimen Level I HEADER OPERATION: Bilateral silicone implant removal with capsulectomy PRE-OP DIAGNOSIS: Ruptured silicone breast implant, chronic breast pain, capsular contracture of breast implant, chronic back pain TISSUE SUBMITTED: A- Left breast implant and capsulectomy, B- Right breast implant and capsulectomy MICROSCOPIC DIAGNOSIS A. Left breast implant and capsulectomy: A silicone gel implant with rupture and scant piece of overlying dense fibroconnective tissue (capsule) with fat necrosis and calcifications. B. Right breast implant and capsulectomy: A silicone gel implant with rupture. Fragments of benign breast tissue and fibroadipose tissue consistent with capsule with extensive fat necrosis and chronic inflammation. SJ. 12/31/2024 MICROSCOPIC DESCRIPTION Slides are reviewed. GROSS DESCRIPTION A. Received in fixative is one container labeled with the patient's name and designated Left breast implant and capsulectomy. The specimen consists of an implant with focal area of rupture. Gel-like material exuding from the area of rupture. Outer surface of implant is ragged. The entire specimen measures 11 x 8 x 4.5cm. Implant is filled with gel-like material and also siegel-white amorphous material. Jewelry Dipper sections of implant with overlying capsule are submitted in one cassette. B. Received in fixative is one container labeled with the patient's name and designated Right breast implant and capsulectomy. The specimen consists of an implant with focal area of rupture with gel-like material exuding from the area of rupture and measures 12 x 10 x 6cm. Outer surface of the implant is irregular and ragged. Also present in the container are three variable sized pieces of indurated tissue measuring in aggregate 3.5 x 3 x 1cm. Soft tissue is submitted entirely in three cassettes. . 12/30/2024 TC:3CPT:[id number]
[2024-12-30] MEDS: Cefazolin 2 GM in Syringe IV (07:37)
[2024-12-30] MEDS: Gentamicin 80 MG/2 ML Vial ×2 (08:10→09:26)
[2024-12-30] MEDS: Lidocaine 1% /Epi 1:100 (20ml) 20 ML Vial (08:10)
[2024-12-30 08:55] LABS: Bedside Glucose 111 mg/dL (74-106)
[2024-12-30] MEDS: Bupivacaine 0.25% 30 ML Vial (11:30)
--- NOTE | 2024-12-30 11:54 | EX.PCM.DISCH ---
Discharge Instructions Dressing / Incision Additional Dressing/Incision Instructions:: Keep your back elevated (recliner position)??do not lie flat Take the oral antibiotic 2 times a day as directed. Empty the ELICEO drains 2-3 times a day and record the drainage. Bring this sheet back to the office for your follow-up appointments. Use the incentive spirometer every 2 hours during the day. Follow Up Care Please Follow Up With: Claribel Schmitz MD When: Next week Test Results: Test results from this visit will be discussed in further detail at your follow-up appointment, if applicable. Discharge Plan Admission Attending Provider: Claribel Schmitz Primary Care Provider: Manda Howe Instructions Print Language: Palestinian Discharge Orders/Prescriptions Prescriptions: No Action tramadol 50 mg tablet 50 mg PO BID PRN (Reason: pain) duloxetine 60 MG capsule 60 mg PO DAILY Patient Comments: anti-depressant trazodone 100 mg tablet 100 mg PO QHS bupropion HCl 75 mg tablet 75 mg PO LUNCH rosuvastatin 10 mg tablet 10 mg PO QHS Ozempic 2 mg/dose (8 mg/3 mL) pen injector 2 mg subcut SA sucralfate [Carafate] 1 gram tablet 1 g PO TID PRN (Reason: upper abdominal pain) Qty: 20 0RF pantoprazole 40 mg tablet,delayed release (DR/EC) 40 mg PO BID Referrals / Follow Up: Manda Howe MD [Primary Care Provider] - Disposition Disposition (needs filled in before D/C Order can be placed): Home, Self Care
--- NOTE | 2024-12-30 11:57 | DCINST_ITS ---
Discharge Instructions Dressing / Incision Additional Dressing/Incision Instructions:: Keep your back elevated (recliner position)??do not lie flat Take the oral antibiotic 2 times a day as directed. Empty the ELICEO drains 2-3 times a day and record the drainage. Bring this sheet back to the office for your follow-up appointments. Use the incentive spirometer every 2 hours during the day. Follow Up Care Please Follow Up With: Claribel Schmitz MD Test Results: Test results from this visit will be discussed in further detail at your follow- up appointment, if applicable. Discharge Plan Admission Attending Provider: Claribel Schmitz Primary Care Provider: Manda Howe Instructions Print Language: Par[place] Discharge Orders/Prescriptions Prescriptions: No Action tramadol 50 mg tablet 50 mg PO BID PRN (Reason: pain) duloxetine 60 MG capsule 60 mg PO DAILY Patient Comments: anti-depressant trazodone 100 mg tablet 100 mg PO QHS bupropion HCl 75 mg tablet 75 mg PO LUNCH rosuvastatin 10 mg tablet 10 mg PO QHS Ozempic 2 mg/dose (8 mg/3 mL) pen injector 2 mg subcut SA sucralfate [Carafate] 1 gram tablet 1 g PO TID PRN (Reason: upper abdominal pain) Qty: 20 0RF pantoprazole 40 mg tablet,delayed release (DR/EC) 40 mg PO BID Referrals / Follow Up: Manda Howe MD [Primary Care Provider] - Disposition Disposition (needs filled in before D/C Order can be placed): Home, Self Care
--- NOTE | 2024-12-30 11:59 | PCM.OPRPT ---
Problems Associated Problem List Diagnoses (1) Ruptured silicone breast implant: (2) Chronic breast pain: (3) Capsular contracture of breast implant, initial encounter: Operative Report (Standard) Operative Information Date of Procedure: 12/30/24 Pre-Operative Diagnosis: Bilateral ruptured silicone implants Capsular contraction Chronic breast pain Post-Operative Diagnosis: The same Surgery/Procedure Performed: Bilateral capsulectomy with removal of ruptured silicone implants Bilateral removal of extracapsular silicone material marine mechanic: Yes Threading Machine Feeder Automatic: Nikolas Reyna Tasks completed by first coat sander: Closing and Retracting Type of Anesthesia: General RN Documented Start/Stop Times: Operation Date: 12/30/24 07:30 Case Time Into Pre-Op 12/30/24 06:18 Out of Pre-Op 12/30/24 07:34 Anesthesia Start 12/30/24 07:37 Into Room 12/30/24 07:37 Procedure Start 12/30/24 08:10 Procedure End 12/30/24 11:48 Anesthesia End 12/30/24 11:53 Out of Room 12/30/24 11:53 Into Recovery 12/30/24 11:58 Procedure Start Time: 08:10 Procedure Stop Time: 11:48 Select all DRAINS/GRAFTS/IMPLANTS that apply: Drains (ELICEO drains) Drain details: Bilaterally Estimated Blood Loss: <50cc Specimen collected: Yes Description of specimen(s) removed: Bilateral ruptured silicone implants and capsules Description of surgery: The patient presents today with chronic breast pain and hardness of her breast. Her history is significant for bilateral silicone implants that were placed many years ago. She has documentation of bilateral ruptured implants including extracapsular extravasation of silicone material. The patient is aware that the implants will not be replaced. The patient is brought to the operating room and placed under general anesthesia in the supine position. Care is taken to apply a warming blanket, sequential compression stockings, a Montague catheter and padding of all pressure points. The breast and chest are prepped and draped in the usual sterile fashion. We initially began with making an approximately 9 cm incision which incorporates the previous incision. Dissection carried down through the subcutaneous tissue until the implant capsule is identified. Dissection is then carried out along the wall of the capsule to try to contain the ruptured implant and associated silicone. Extracapsular silicone is encountered bilaterally and additional dissection is carried out to encompass and remove as much of the extracapsular extravasated silicone as possible. In this way, the implant and capsule are removed along with extravasated silicone and calcified particles from the wall of the capsule. Gauze sponges are then used to clean the pocket to again remove is much silicone as possible. The pocket was then irrigated with antibiotic solution. We then examined the pocket and perform meticulous hemostasis. A antibiotic gauze soaked sponges were placed in the pocket we directed our attention to the opposite side with the identical procedures performed. Extravasated silicone is also seen on the opposite side. Extra measures are taken to remove is much silicone as visible. The ELICEO drain is placed along the inferior and lateral gutter and brought out through the lateral aspect of the incision. This is affixed in place with a nylon suture. The incisions aligned and closed with Vicryl suture. Further approximation of the incision is done in 3 layers using a running strata fix suture. Skin edges are approximated with a running subcuticular suture. 10 cc of quarter percent plain Marcaine are injected into the pockets. The incisions are dressed with Xeroform and fluff gauze. She is placed in a surgery bra. She tolerated the procedure well was taken to the recovery area in an awakening in stable condition. Needle and sponge counts are correct. Surgical Findings: Bilateral ruptured silicone implants with extravasated silicone both intra and extracapsular Complications Complications: No Admit VTE Documentation VTE Mechan Device Prophylaxis: SCD's
--- NOTE | 2024-12-30 15:16 | PCM.POST.ANE ---
Anesthesia: Postop Eval I Current Vital Signs Temperature: 96.8 F Pulse Rate: 80 Blood Pressure: 120/70 Respiratory Rate: 18 Pulse Ox: 99 Oxygen Delivery Method: Room Air Assessment Airway patent: Yes Spontaneous unlabored respirations: Yes Mental status: Awake nausea: No Vomiting: No Anesthesia Complication: No Fluid Hydration Crystalloid volume administer (ml): 1,600 Total IV fluid infused: 1,600 Progress Note Anesthesia document: Postop Eval 1 completed: Yes
--- NOTE | 2024-12-30 16:22 | POSTOPAN2_ITS ---
Anesthesia Postop Eval I Sum Postop Eval Completion status Anesthesia document: Postop Eval 1 completed: Yes Anesthesia Postop Eval I Summary Anesthesia Postop Eval I Summary: Anesthesia Postop Eval I: Assessment Summary Airway patent Yes 12/30/24 15:17 CUSHION [email or web address].[email or web address] Spontaneous unlabored Yes 12/30/24 15:17 CUSHION SEWER.JCLI respirations Mental status Awake 12/30/24 15:17 CUSHION [email or web address].JCLI nausea No 12/30/24 15:17 CUSHION SEWER.JCLI Vomiting No 12/30/24 15:17 CUSHION SEWER.JCLI Anesthesia Postop Eval I: Fluid Summary Crystalloid volume administer 1,600 12/30/24 15:17 CUSHION SEWER.JCLI (ml) Colloids volume administered ( ml) Blood Product volume administered (ml) Total IV fluid infused 1,600 12/30/24 15:17 CUSHION SEWER.JCLI Anesthesia Postop Eval I: Summary Notes Anesthesia Complication No 12/30/24 15:17 CUSHION SEWER.LI Anesthesia Complication Comment: Post-operative progress note Anesthesia: Postop Eval II Evaluation Mental status: Awake and Calm Pain Level: 1 nausea: No Vomiting: No Complications Anesthesia Complication: No
--- NOTE | 2024-12-30 16:22 | PCM.POSTANE2 ---
Anesthesia Postop Eval I Sum Postop Eval Completion status Anesthesia document: Postop Eval 1 completed: Yes Anesthesia Postop Eval I Summary Anesthesia Postop Eval I Summary: Anesthesia Postop Eval I: Assessment Summary Airway patent Yes 12/30/24 15:17 BED PLACEMENT COORDINATOR.JCLI Spontaneous unlabored Yes 12/30/24 15:17 BED PLACEMENT COORDINATOR.JCLI respirations Mental status Awake 12/30/24 15:17 BED PLACEMENT COORDINATOR.JCLI nausea No 12/30/24 15:17 BED PLACEMENT COORDINATOR.JCLI Vomiting No 12/30/24 15:17 BED PLACEMENT COORDINATOR.JCLI Anesthesia Postop Eval I: Fluid Summary Crystalloid volume administer 1,600 12/30/24 15:17 BED PLACEMENT COORDINATOR.JCLI (ml) Colloids volume administered ( ml) Blood Product volume administered (ml) Total IV fluid infused 1,600 12/30/24 15:17 BED PLACEMENT COORDINATOR.JCLI Anesthesia Postop Eval I: Summary Notes Anesthesia Complication No 12/30/24 15:17 BED PLACEMENT COORDINATOR.LI Anesthesia Complication Comment: Post-operative progress note Anesthesia: Postop Eval II Evaluation Mental status: Awake and Calm Pain Level: 1 nausea: No Vomiting: No Complications Anesthesia Complication: No
== END 2024-12-30 16:05 | disposition home or self-care (01) ==
LOC: SDC 05:46 → AC 05:47
PROVIDERS: PCP Internal Medicine; Referring Provider Plastic Surgery; Visit Provider Plastic Surgery
PROC: (CPT 19371; principal; 2024-12-30 07:15)
DX: T85.43XA Leakage of breast prosthesis and implant, initial encounter (principal); E11.9 Type 2 diabetes mellitus without complications; T85.44XA Capsular contracture of breast implant, initial encounter; X58.XXXA Exposure to other specified factors, initial encounter; G89.29 Other chronic pain; I10 Essential (primary) hypertension; E78.5 Hyperlipidemia, unspecified; Z79.85 Long-term (current) use of injectable non-insulin antidiabetic drugs; Z79.899 Other long term (current) drug therapy
CPT/HCPCS: 19330; 00402; 82962; 88300; C1729; J2405